=== PATIENT | female | born 1980 | race Caucasian/White ===

== ENCOUNTER 2020-11-30 02:16 | Inpatient (IN) | payer MEDICAID, SELFPAY ==
[2020-11-30] VITALS (7 sets, daily range): BP systolic 97–144; BP diastolic 39–85; PULSE 46–92; RESP 13–18; TEMP 35.9–37; O2SAT 95–98; BMI 23.3
--- NOTE | ~2020-11-30 | XR_ITS ---
EXAMINATION: BILATERAL FOREARMS 2 VIEWS EACH CLINICAL INFORMATION: Concern for foreign body. Injury. COMPARISON: None TECHNIQUE: AP and lateral views of each forearm are provided. FINDINGS: There is bilateral forearm soft tissue swelling. There is subcutaneous gas noted on the left. There are no radiopaque foreign bodies. There are no fractures or dislocations. There is no elbow joint effusion on either side. XR/XR forearm RT 2V IMPRESSION: Bilateral forearms soft tissue swelling with subcutaneous gas on the left indicative of penetrating injury. No radio opaque foreign bodies.
--- NOTE | ~2020-11-30 | XR_ITS ---
EXAMINATION: BILATERAL FOREARMS 2 VIEWS EACH CLINICAL INFORMATION: Concern for foreign body. Injury. COMPARISON: None TECHNIQUE: AP and lateral views of each forearm are provided. FINDINGS: There is bilateral forearm soft tissue swelling. There is subcutaneous gas noted on the left. There are no radiopaque foreign bodies. There are no fractures or dislocations. There is no elbow joint effusion on either side. XR/XR forearm LT 2V IMPRESSION: Bilateral forearms soft tissue swelling with subcutaneous gas on the left indicative of penetrating injury. No radio opaque foreign bodies.
--- NOTE | ~2020-11-30 | US_ITS ---
EXAMINATION: SOFT TISSUE NONVASCULAR ULTRASOUND CLINICAL INFORMATION: Cellulitis. COMPARISON: None TECHNIQUE: Imaging of the areas of concern in each forearm was performed with a high-frequency linear transducer. FINDINGS: There is extensive subcutaneous edema. There are no drainable fluid collections. There are no foreign bodies demonstrable. US/US extremity nonvascular IMPRESSION: Extensive edema. No drainable fluid collections. No foreign bodies demonstrable.
[2020-11-30 03:35] LABS: Basophils Percent Auto 0.4 % (0-2); Eosinophils Absolute Auto 0.1 X10*3/uL (0.0-0.4); Eosinophils Percent Auto 1.9 % (0-4); Hematocrit 27.2 % (37-47); Hemoglobin 8.9 g/dl (12.0-16.0); Imm Gran Abs Auto 0.01 X10*3/uL (0.00-0.03); Imm Gran Pct Auto 0.2 % (0.0-0.4); Lymphocytes Absolute Auto 1.2 X10*3/uL (1.2-4.9); Lymphocytes Percent Auto 26.2 % (20-40); Mean Corpuscular HGB Conc 32.7 g/dl (31.0-35.0); Mean Corpuscular Hemoglobin 28.4 pg (27.0-33.0); Mean Corpuscular Volume 86.9 fL (80-98); Mean Platelet Volume 9.4 fL (9.4-12.3); Monocytes Absolute Auto 0.3 X10*3/uL (0.1-1.2); Monocytes Percent Auto 5.3 % (2-11); Neutrophils Absolute Auto 3.1 X10*3/uL (2.0-8.3); Platelet Count 207 X10*3/uL (160-400); Red Blood Count 3.13 X10*6/uL (4.20-5.50); Red Cell Distribution Width 12.5 % (11.0-16.0); White Blood Count 4.7 X10*3/uL (4.8-10.8)
[2020-11-30 03:36] LABS: MANUAL DIFF FLAG NO
[2020-11-30 03:43] LABS: D Dimer 795 NG/ML
[2020-11-30 03:50] LABS: Lactic Acid 0.6 mmol/L (0.5-2.0)
[2020-11-30 04:01] LABS: Alanine Aminotransferase 12 U/L (0-31); Albumin Level 3.5 g/dL (3.5-5.0); Alkaline Phosphatase 80 U/L (39-117); Anion Gap 12 (12-20); Aspartate Amino Transferase 25 U/L (5-31); Bilirubin Total 0.2 mg/dL (0.0-1.0); Blood Urea Nitrogen 8 mg/dL (9-16); Calcium 8.2 mg/dL (8.4-10.2); Carbon Dioxide 27 mmol/L (22-29); Chloride 103 mmol/L (96-108); Creatinine Clr Calc Pharmacy 103.4; Estimated Glomerular Filt Rate > 60; Glucose Random 95 mg/dL (60-115); Potassium 3.9 mmol/L (3.3-5.1); Sodium 138 mmol/L (135-145); Total Protein 7.9 g/dL (6.5-8.0)
--- NOTE | 2020-11-30 04:18 | ED_ITS ---
HPI - General Adult General Chief complaint: Skin/Abscess/Foreign Body Stated complaint: bilateral arm pain Time Seen by Provider: 11/30/20 04:13 Source: patient and EMS Mode of arrival: EMS Limitations: no limitations History of Present Illness HPI narrative: 40 years old female with IV drug abuser history presented with bilateral forearm cellulitis, patient had recent use for IV drugs, patient declined any fever chills. Patient stated that the pain started 2 days ago, progressively getting worse, initially was draining pus but now was not draining, pain is not associated with any other symptoms, touching the arms causing severe pain, nothing relieves the pain. Related Data Allergies Allergy/AdvReac Type Severity Reaction Status Date / Time sulfamethoxazole Allergy Intermediate rash Unverified 07/11/20 17:44 [From BACTRIM] trimethoprim [From BACTRIM] Allergy Intermediate rash Unverified 07/11/20 17:44 acetaminophen [From VICODIN] Allergy Unknown UNKNOWN Unverified 07/11/20 17:44 hydrocodone [HYDROCODONE] Allergy Unknown UNKNOWN Unverified 07/11/20 17:44 Sulfa (Sulfonamide Allergy Unknown hives Verified 10/12/16 00:00 Antibiotics) Review of Systems Review of Systems: All other systems are reviewed and are negative Constitutional: Reports as per HPI and Reports no additional constitutional complaints Eyes: Reports as per HPI and Reports no additional eye complaints Reports system reviewed and no additional complaints, except as documented Cardiovascular: Reports as per HPI and Reports no additional cardiovascular complaints Respiratory: Reports as per HPI and Reports no additional respiratory complaints Gastrointestinal: Reports as per HPI and Reports no additional gastrointestinal complaints Genitourinary: Reports no additional female genitourinary complaints Musculoskeletal: Reports no additional musculoskeletal complaints Skin/Breast: Reports system reviewed and no additional complaints, except as docu Psychiatric: Reports no additional psychiatric complaints Endocrine: Reports no additional endocrine complaints Hematologic/Lymphatic: Reports no additional hematologic/lymphatic complaints Allergic/Immunologic: Reports no additional allergic/immunologic complaints Reports system reviewed and no additional complaints, except as documented and Reports Abnormal speech present [facility] Past Medical History Medical History Ectopic Surgical History H/O tubal ligation Social History Social History Alcohol intake: unknown Smoking Status: Current every day smoker Use of substances other than those prescribed or required for medical reasons: No Advance Directives: No Advance Directives Information Provided: No Physical Exam Vital Signs: Vital Signs: Last Vital Signs Temp 98.6 F 11/30/20 02:33 Pulse 87 11/30/20 05:42 Resp 16 11/30/20 05:42 BP 144/71 H 11/30/20 05:42 Pulse Ox 95 11/30/20 05:42 Body Mass Index 23.3 Vital signs have been reviewed as normal and appeared to be correct. Blood pressure normal. Heart rate normal. Respiration rate normal. Temperature normal. Oxygen saturation normal. Appearance: Alert. Oriented X3. No acute distress. Head: Normal external exam. Normocephalic. Atraumatic. No Mattson signs noted. No raccoon eyes noted Eyes: PERRLA. EOMI. Conjunctiva and sclera normal. Eyelids normal. ENT: TM's Normal. Pharynx normal. Uvula midline. Moist mucous membranes. No trismus noted. No drooling noted. No muffled voice noted. Neck: Normal inspection. Neck supple. FROM. No adenopathy. Thyroid Normal. No meningeal signs. No neck mass noted. CVS: Normal heart rate and rhythm. Heart sound normal. No murmurs noted. Pulses normal throughout. Respiratory: No respiratory distress. Painless inspiration. Breath sounds normal. No wheezes/rales/rhonchi noted. Chest nontender. No accessory muscle usage noted or decreased air movement noted. Abdomen: Soft and nontender. Bowel sounds normal in all 4 quadrants. No distention noted. No organomegaly noted. No visible injury noted. Back: No CVA tenderness. Full range of motion noted. Skin: Skin warm and dry. Normal skin color. Normal skin turgor. No rashes/lesions/lacerations noted. Extremities: Bilateral forearm redness, hotness, tenderness no elbows involvement, no obvious fluctuation. Neuro: Oriented X 3. No motor deficit. No sensory deficit. Reflexes normal. Course Course Course Narrative: Assessment and plan. 40 years old female with IV drug abuser presented with bilateral arm cellulitis, no obvious fluctuation or abscess. Patient did not meet criteria for sepsis. Patient will need IV antibiotic will admit the patient. Medical Decision Making Lab Data Lab results reviewed: Yes I reviewed the patient's lab results. Result diagrams: 11/30/20 03:28 11/30/20 03:28 Labs: Lab Results 11/30/20 11/30/20 11/30/20 Range/Units 03:28 03:28 03:28 WBC 4.7 L (4.8-10.8) X10*3/uL RBC 3.13 L (4.20-5.50) X10*6/uL Hgb 8.9 L (12.0-16.0) g/dl Hct 27.2 L (37-47) % MCV 86.9 (80-98) fL MCH 28.4 (27.0-33.0) pg MCHC 32.7 (31.0-35.0) g/dl RDW 12.5 (11.0-16.0) % Plt Count 207 (160-400) X10*3/uL MPV 9.4 (9.4-12.3) fL Immature Gran % (Auto) 0.2 (0.0-0.4) % Neut % (Auto) 66.0 (45-73) % Lymph % (Auto) 26.2 (20-40) % [place] % (Auto) 5.3 (2-11) % Eos % (Auto) 1.9 (0-4) % Baso % (Auto) 0.4 (0-2) % Lymph # (Auto) 1.2 (1.2-4.9) X10*3/uL [place] # (Auto) 0.3 (0.1-1.2) X10*3/uL Eos # (Auto) 0.1 (0.0-0.4) X10*3/uL Baso # (Auto) 0.0 (0.0-0.2) X10*3/uL Abs Immat Gran (auto) 0.01 (0.00-0.03) X10*3/uL Absolute Neuts (auto) 3.1 (2.0-8.3) X10*3/uL Absolute Nucleated RBC 0.000 (0.0-0.012) X10*3/uL Nucleated RBC % (auto) 0.0 (0.0-0.2) /100WBC D-Dimer NG/ML Sodium 138 (135-145) mmol/L Potassium 3.9 (3.3-5.1) mmol/L Chloride 103 (96-108) mmol/L Carbon Dioxide 27 (22-29) mmol/L Anion Gap 12 (12-20) BUN 8 L (9-16) mg/dL Creatinine 0.65 (0.5-1.4) mg/dL Estim Creat Clear Calc 103.4 Estimated GFR > 60 Random Glucose 95 (60-115) mg/dL Lactic Acid 0.6 (0.5-2.0) mmol/L Calcium 8.2 L (8.4-10.2) mg/dL Total Bilirubin 0.2 (0.0-1.0) mg/dL AST 25 (5-31) U/L ALT 12 (0-31) U/L Alkaline Phosphatase 80 (39-117) U/L Total Protein 7.9 (6.5-8.0) g/dL Albumin 3.5 (3.5-5.0) g/dL Beta HCG, Quant < 2 mIU/mL 11/30/20 Range/Units 03:28 WBC (4.8-10.8) X10*3/uL RBC (4.20-5.50) X10*6/uL Hgb (12.0-16.0) g/dl Hct (37-47) % MCV (80-98) fL MCH (27.0-33.0) pg MCHC (31.0-35.0) g/dl RDW (11.0-16.0) % Plt Count (160-400) X10*3/uL MPV (9.4-12.3) fL Immature Gran % (Auto) (0.0-0.4) % Neut % (Auto) (45-73) % Lymph % (Auto) (20-40) % [place] % (Auto) (2-11) % Eos % (Auto) (0-4) % Baso % (Auto) (0-2) % Lymph # (Auto) (1.2-4.9) X10*3/uL [place] # (Auto) (0.1-1.2) X10*3/uL Eos # (Auto) (0.0-0.4) X10*3/uL Baso # (Auto) (0.0-0.2) X10*3/uL Abs Immat Gran (auto) (0.00-0.03) X10*3/uL Absolute Neuts (auto) (2.0-8.3) X10*3/uL Absolute Nucleated RBC (0.0-0.012) X10*3/uL Nucleated RBC % (auto) (0.0-0.2) /100WBC D-Dimer 795 NG/ML Sodium (135-145) mmol/L Potassium (3.3-5.1) mmol/L Chloride (96-108) mmol/L Carbon Dioxide (22-29) mmol/L Anion Gap (12-20) BUN (9-16) mg/dL Creatinine (0.5-1.4) mg/dL Estim Creat Clear Calc Estimated GFR Random Glucose (60-115) mg/dL Lactic Acid (0.5-2.0) mmol/L Calcium (8.4-10.2) mg/dL Total Bilirubin (0.0-1.0) mg/dL AST (5-31) U/L ALT (0-31) U/L Alkaline Phosphatase (39-117) U/L Total Protein (6.5-8.0) g/dL Albumin (3.5-5.0) g/dL Beta HCG, Quant mIU/mL Imaging Data Extremities ultrasound: Radiologist's impression: Extensive edema. No drainable fluid collections. No foreign bodies demonstrable. Discharge Plan Discharge Clinical Impression: Cellulitis Qualifiers: Site of cellulitis of extremity: upper extremity Laterality: unspecified laterality Patient Disposition: Admitted As Inpatient
--- NOTE | 2020-11-30 04:22 | PM.IMHP ---
History of Present Illness Date of Service: 11/30/20 Chief Complaint: Bilateral forearm pain redness and swelling 40-year-old female a past medical history of IV drug abuse presented to the hospital with a chief complaint of bilateral forearm pain redness and swelling going on the past few days. Mentioned that her swelling has been gradually worsening and also has increased pain. And presented the ER further evaluation. Mentions that she used IV heroin on a regular basis. Denies any chest pain palpitations lightheadedness or dizziness. Denies any shortness of breath cough. Denies any headaches numbness tingling. Review all other systems is negative except mentioned above ER course: ER team patient noted to have bilateral forearm cellulitis; no evidence; range of motion intact elbows and wrists bilaterally. Given IV antibiotics and admitted to the hospital further management PMFSH Medical History Ectopic Surgical History H/O tubal ligation Social History Household Members: None Housing: Homeless Do you presently have visiting nurse or other home services: No Unable to assess alcohol history related to: Refusing to respond Alcohol intake: unknown Smoking Status: Current every day smoker Tobacco Type: Cigarette Smoked in Last 30 Days: Yes Patient Interested in Nicotine Replacement: No Patient Given Instructions on How to Stop Smoking: No Use of substances other than those prescribed or required for medical reasons: Yes Substance Use Type: Heroin Substance Use Frequency: Daily Last Used Substance: Just Prior to Admission Currently Displaying Signs/Symptoms of Drug Intoxication Withdrawal: Yes (COWS score 1) Advance Directives: No Advance Directives Information Provided: No Do you have thoughts of harming others: None Do you have a plan to hurt others: No Plan Recently lost weight without trying: Unsure service: No Current occupational status: unemployed Meds Allergies Allergy/AdvReac Type Severity Reaction Status Date / Time sulfamethoxazole Allergy Intermediate rash Unverified 07/11/20 17:44 [From BACTRIM] trimethoprim [From BACTRIM] Allergy Intermediate rash Unverified 07/11/20 17:44 acetaminophen [From VICODIN] Allergy Unknown UNKNOWN Unverified 07/11/20 17:44 hydrocodone [HYDROCODONE] Allergy Unknown UNKNOWN Unverified 07/11/20 17:44 Sulfa (Sulfonamide Allergy Unknown hives Verified 10/12/16 00:00 Antibiotics) Physical Exam Vital Signs and Narrative: Vital Signs: Last Vital Signs Temp 98.6 F 11/30/20 02:33 Pulse 92 11/30/20 02:33 Resp 18 11/30/20 02:33 BP 144/71 H 11/30/20 02:33 Pulse Ox 96 11/30/20 02:33 Body Mass Index 23.3 Gen: Appears be in no acute distress HEENT: NCAT, Moist mucosa. Pulmonary: Vesicular breath sounds, fair air entry CVS: Normal S1-S2 Abdomen: BS+, Soft, Nontender Extremities: Warm well perfused; bilateral forearm swollen, tender and hyperemic-> the posterior side mostly; also noted excoriations/ulcers; no discharge. No fluctuance but noted few areas of intubations. Range of motion intact at elbow bilaterally. Neuro: Alert and awake. Results Labs CBC and Chem 7: 12/01/20 06:46 12/01/20 06:46 Labs: Laboratory Results - last 24 hr 11/30/20 11/30/20 11/30/20 03:28 03:28 03:28 MCV 86.9 MCH 28.4 MCHC 32.7 RDW 12.5 Plt Count 207 MPV 9.4 Immature Gran % (Auto) 0.2 Neut % (Auto) 66.0 Lymph % (Auto) 26.2 [place] % (Auto) 5.3 Eos % (Auto) 1.9 Baso % (Auto) 0.4 Lymph # (Auto) 1.2 [place] # (Auto) 0.3 Eos # (Auto) 0.1 Baso # (Auto) 0.0 Abs Immat Gran (auto) 0.01 Absolute Neuts (auto) 3.1 Absolute Nucleated RBC 0.000 Nucleated RBC % (auto) 0.0 D-Dimer Anion Gap 12 Estim Creat Clear Calc 103.4 Estimated GFR > 60 Random Glucose 95 Lactic Acid 0.6 Calcium 8.2 L Total Bilirubin 0.2 AST 25 ALT 12 Alkaline Phosphatase 80 Total Protein 7.9 Albumin 3.5 11/30/20 03:28 MCV MCH MCHC RDW Plt Count MPV Immature Gran % (Auto) Neut % (Auto) Lymph % (Auto) [place] % (Auto) Eos % (Auto) Baso % (Auto) Lymph # (Auto) [place] # (Auto) Eos # (Auto) Baso # (Auto) Abs Immat Gran (auto) Absolute Neuts (auto) Absolute Nucleated RBC Nucleated RBC % (auto) D-Dimer 795 Anion Gap Estim Creat Clear Calc Estimated GFR Random Glucose Lactic Acid Calcium Total Bilirubin AST ALT Alkaline Phosphatase Total Protein Albumin Assessment and Plan (1) Cellulitis: Qualifiers: Laterality: unspecified laterality Site of cellulitis of extremity: upper extremity Problem details: Ongoing Bilateral forearm, edema, erythema and induration. U/S reviewed. Status: Acute 40-year-old female with a past history IV drug abuse presented to the hospital with a chief complaint of bilateral forearm cellulitis. Bilateral forearm cellulitis/induration/ulcers: Continue IV vanc and Zosyn. Blood cultures have been sent. obtain echocardiogram to rule out endocarditis. Will also obtain CT scan of the bilateral forearms Consult general surgery and a. Opiate dependence: Supportive care. Monitor for withdrawal symptoms. P.r.n.. Clonidine p.r.n.. DVT prophylaxis: SCD Regular diet Full code
[2020-11-30] MEDS: 0.9 % Sodium Chloride 1,000 ML 100 ML IVCONT ×2 (04:36→14:20)
[2020-11-30] MEDS: Piperacillin Sodium/Tazobactam 3.375 GM in 0.9 % Sodium Chloride 50 ML IV ×4 (04:38→23:04)
--- NOTE | 2020-11-30 04:52 | PC.NURSE ---
Pt sleeping and resting, medicated for per emar.
--- NOTE | 2020-11-30 05:44 | PC.NURSE ---
pt medicated per Mar, pt taken to ultra sound. pt has abscess to right and left arm due to iv use. Area is red and warm. pt has positives cms.
--- NOTE | 2020-11-30 05:47 | PC.NURSE ---
pt is archie to move all of her digits and upper arms.
--- NOTE | 2020-11-30 05:48 | PC.NURSE ---
Antibioc delayed due to one IV line and pt taken to ultra sound.
[2020-11-30] MEDS: vancomycin HCL 1,000 MG in 0.9 % Sodium Chloride 250 ML 270 MG IV ×2 (06:00→19:30)
[2020-11-30 06:12] LABS: HCG Quantitative < 2 mIU/mL
[2020-11-30 07:06] LABS: MANUAL DIFF FLAG NO
--- NOTE | 2020-11-30 07:06 | PC.NURSE ---
attempting to collect urine several time. pt stating she does not have to void. pt sleeping and but able to answer questions
[2020-11-30 07:19] LABS: Basophils Percent Auto 0.5 % (0-2); Eosinophils Absolute Auto 0.1 X10*3/uL (0.0-0.4); Eosinophils Percent Auto 2.4 % (0-4); Hemoglobin 8.2 g/dl (12.0-16.0); Imm Gran Abs Auto 0.01 X10*3/uL (0.00-0.03); Imm Gran Pct Auto 0.2 % (0.0-0.4); Lymphocytes Absolute Auto 1.4 X10*3/uL (1.2-4.9); Lymphocytes Percent Auto 33.6 % (20-40); Mean Corpuscular HGB Conc 32.8 g/dl (31.0-35.0); Mean Corpuscular Hemoglobin 28.4 pg (27.0-33.0); Mean Corpuscular Volume 86.5 fL (80-98); Mean Platelet Volume 9.5 fL (9.4-12.3); Monocytes Absolute Auto 0.2 X10*3/uL (0.1-1.2); Monocytes Percent Auto 5.8 % (2-11); Neutrophils Absolute Auto 2.4 X10*3/uL (2.0-8.3); Neutrophils Percent Auto 57.5 % (45-73); Platelet Count 198 X10*3/uL (160-400); Red Blood Count 2.89 X10*6/uL (4.20-5.50); Red Cell Distribution Width 12.5 % (11.0-16.0); White Blood Count 4.2 X10*3/uL (4.8-10.8)
[2020-11-30 07:33] LABS: Anion Gap 11 (12-20); Blood Urea Nitrogen 8 mg/dL (9-16); Carbon Dioxide 25 mmol/L (22-29); Chloride 107 mmol/L (96-108); Creatinine Clr Calc Pharmacy 106.8; Estimated Glomerular Filt Rate > 60; Glucose Random 79 mg/dL (60-115); Sodium 139 mmol/L (135-145)
[2020-11-30 08:03] LABS: COVID-19 Test Negative (Negative); IDNOW Serial# 9DD0AD1C
--- NOTE | 2020-11-30 09:17 | P.CONGS_ITS ---
History of Present Illness Consult details Consult date: 11/30/20 <TIMI Chawla - Last Filed: 11/30/20 10:44> Reason for consult: other (Bilateral Forearm Cellulitis) <TIMI Chawla - Last Filed: 11/30/20 10:44> Requesting physician: Chris Quezada <TIMI Chawla - Last Filed: 11/30/20 10:44> Narrative: 40-year-old female a past medical history of IV drug abuse presented to the hospital with a chief complaint of bilateral forearm pain redness and swelling going on the past few days, maybe a week. She reports that her swelling has been gradually worsening and also has increased pain and redeness. She reports that the swelling and edema began after using IV Heroin which she uses regularly. She denies any falls or other exacerbating injury to the arms. Denies any chest pain palpitations lightheadedness or dizziness. Denies any shortness of breath cough. Denies any headaches numbness tingling. She denies any other complaints. In the ED she was given IV antibiotics and admitted to the hospital further management. Surgery was consulted to assess for any emergent surgical intervention. <TIMI Chawla - Last Filed: 11/30/20 10:44> Review of Systems Review of Systems: Yes all other systems are reviewed and are negative <TIMI Chawla - Last Filed: 11/30/20 10:44> Integumentary/Breasts: Skin/Breast: Reports erythema (Bilateral forearms), Reports skin pain (Bilateral forearms) and Reports skin swelling (Bilateral forearms) <TIMI Chawla - Last Filed: 11/30/20 10:44> [facility] Past Medical History Medical History: Medical History Ectopic <TIMI Chawla Last Filed: 11/30/20 10:44> Surgical History Surgical History: Surgical History H/O tubal ligation <TIMI Chawla Last Filed: 11/30/20 10:44> Social History Social History: Social History Alcohol intake: unknown Smoking Status: Current every day smoker Use of substances other than those prescribed or required for medical reasons: No Advance Directives: No Advance Directives Information Provided: No <TIMI Chawla Last Filed: 11/30/20 10:44> Meds Allergies/Adverse reactions: Allergies Allergy/AdvReac Type Severity Reaction Status Date / Time sulfamethoxazole Allergy Intermediate rash Unverified 07/11/20 17:44 [From BACTRIM] trimethoprim [From BACTRIM] Allergy Intermediate rash Unverified 07/11/20 17:44 acetaminophen [From VICODIN] Allergy Unknown UNKNOWN Unverified 07/11/20 17:44 hydrocodone [HYDROCODONE] Allergy Unknown UNKNOWN Unverified 07/11/20 17:44 Sulfa (Sulfonamide Allergy Unknown hives Verified 10/12/16 00:00 Antibiotics) <TIMI Chawla - Last Filed: 11/30/20 10:44> Physical Exam Vital Signs: Vital Signs: Last Vital Signs Temp 98.6 F 11/30/20 02:33 Pulse 58 11/30/20 08:15 Resp 16 11/30/20 08:15 BP 97/39 L 11/30/20 08:15 Pulse Ox 97 11/30/20 08:15 Body Mass Index 23.3 <TIMI Chawla - Last Filed: 11/30/20 10:44> Const: General: no acute distress and awake (but appears sleepy) <TIMI Chawla - Last Filed: 11/30/20 10:44> Chest: Chest palpation & inspection: normal inspection of the chest <TIMI Chawla - Last Filed: 11/30/20 10:44> Resp: Effort & Inspection: normal respiratory effort <TIMI Chawla - Last Filed: 11/30/20 10:44> Cardio: Jugular venous distension: no JVD <TIMI Chawla - Last Filed: 11/30/20 10:44> Skin: General skin exam: erythema (Bilateral Forearms) <TIMI Chawla Last Filed: 11/30/20 10:44> Lesions: no lesions <TIMI Chawla Last Filed: 11/30/20 10:44> Wounds: no wounds <TIMI Chawla - Last Filed: 11/30/20 10:44> Extrem: General: Yes no calf tenderness <TIMI Chawla Last Filed: 11/30/20 10:44> Right upper extremity: edema and elbow/forearm (multiple 1-2 cm excoriations of the dorsal forearms, no drainage) Details: tenderness, swelling and warmth <TIMI Chawla Last Filed: 11/30/20 10:44> Left upper extremity: edema and elbow/forearm (multiple 1-2 cm excoriations of the dorsal forearms, no drainage) Details: tenderness, swelling and warmth <TIMI Chawla Last Filed: 11/30/20 10:44> Results Labs Result diagrams: : 11/30/20 06:54 11/30/20 06:54 <TIMI Chawla Last Filed: 11/30/20 10:44> Labs: Abnormal lab results 11/30/20 11/30/20 11/30/20 Range/Units 03:28 03:28 06:54 WBC 4.7 L 4.2 L (4.8-10.8) X10*3/uL RBC 3.13 L 2.89 L (4.20-5.50) X10*6/uL Hgb 8.9 L 8.2 L (12.0-16.0) g/dl Hct 27.2 L 25.0 L (37-47) % Anion Gap (12-20) BUN 8 L (9-16) mg/dL Calcium 8.2 L (8.4-10.2) mg/dL 11/30/20 Range/Units 06:54 WBC (4.8-10.8) X10*3/uL RBC (4.20-5.50) X10*6/uL Hgb (12.0-16.0) g/dl Hct (37-47) % Anion Gap 11 L (12-20) BUN 8 L (9-16) mg/dL Calcium 8.0 L (8.4-10.2) mg/dL Short CBC 11/30/20 11/30/20 Range/Units 03:28 06:54 WBC 4.7 L 4.2 L (4.8-10.8) X10*3/uL Hgb 8.9 L 8.2 L (12.0-16.0) g/dl Hct 27.2 L 25.0 L (37-47) % Plt Count 207 198 (160-400) X10*3/uL BMP 11/30/20 11/30/20 03:28 06:54 Sodium 138 139 Potassium 3.9 4.0 Chloride 103 107 Carbon Dioxide 27 25 BUN 8 L 8 L Creatinine 0.65 0.63 Calcium 8.2 L 8.0 L Liver Function 11/30/20 Range/Units 03:28 Total Bilirubin 0.2 (0.0-1.0) mg/dL AST 25 (5-31) U/L ALT 12 (0-31) U/L Alkaline Phosphatase 80 (39-117) U/L Albumin 3.5 (3.5-5.0) g/dL All other labs normal. <TIMI Chawla - Last Filed: 11/30/20 10:44> Assessment and Plan (1) Cellulitis: Qualifiers: Laterality: unspecified laterality Site of cellulitis of extremity: upper extremity <TIMI Chawla - Last Filed: 11/30/20 10:44> Problem details: ~1 week of worsening cellulitis and excoriations of Bilateral forearms following IV Heroin use. She states that the arms are still sore and mildly tender to the touch but this has been improving since ABX were started. <TIMI Chawla - Last Filed: 11/30/20 10:44> Status: Acute <TIMI Chawla - Last Filed: 11/30/20 10:44> Bilateral Forearm Cellulitis- imaging show no discernable fluid pocket or abscess Continue IV ABX Pain mgmt Arm elevation and silver alginate to the excoriations and wrap with dry gauze No surgical interventions required at this time. Will follow with medicine during patients hospital course <TIMI Chawla Last Filed: 11/30/20 10:44> . General Surgery Attending - Dorian Beckman M.D. Patient was evaluated and examined at the bedside with Mr. Wild Steiner PA-C. I confirm above findings and plan as documented. Bilateral forearm edema, some redness, and open needle insertion wounds about 1 cm sized. Appears to be subacute. No discernible fluctulence or abscess that is not already draining through open wounds. I would recommend continued IV antibiotics, local wound care with Silver Alginate and gauze, and follow exam for the next 24 hours. Unnecessary surgical debridement would result in extensive SQ open wounds with scarring, which should be avoided if possible. <Nguyen Beckman MD - Last Filed: 11/30/20 10:48>
[2020-11-30] MEDS: cloNIDine HCL 0.1 MG TABLET PO ×2 (11:45→23:03)
[2020-11-30] MEDS: Ibuprofen 400 MG TABLET PO (11:48)
--- NOTE | 2020-11-30 15:31 | MHC.CM.PN ---
INCOMPLETE CASE MANAGEMENT ASSESSMENT Ptient is LETHARGIC, SLEEPY ,NOT ANSWERING ANY QUESTIONS , MUMBLING. INFORMATION TAKEN FORM ELECTRONIC MEDICAL RECORD AND ER NOTES. PATIENT CAME TO THE ER VIA [facility] WITH COMPLAINTS OF BILATERAL FOREARM SWELLING WORSENING , WITH 8/10 PAIN, ADMITTED TO OPIOD ABUSE IV HEROIN JUST PRIOR TO ADMISSION, EVERYDAY SMOKER REFUSES TO ANSWER ETOH CONSUMPTION, COVID TEST NEGATIVE ON ADMISSION, PER JIMENEZ OF CARE DOCUMENTED BY PHYSICIAN ADMIT INPATIENT IMAGING STUDIES OF FOREARMS, MONITORING FOR OPIOD WITHDRAWAL , CLONDIDINE PRN FR ANXIETY AND RESTLESSNESS, IV ZOFRAN FOR NAUSEA/EMESIS PRN IV ABX X2 IV ANALGESICS, IV FLUIDS, CT SCAN OF BILATERAL FOREARMS, ECHO TO RULE OUT ENDOCARDITIS, SURGICAL CONSULT WHICH RECOMMENDED ARMS TO BE ELEVATED, APPLICATION OF SILVER ALGINATE WRAP WITH GAUZE, MONITOR FOR WITHDRAWAL MONITOR ALL LABS discharge plan to be further determined when patient is more awake and answering questions iniated referral to the cares team substance abuse
[2020-11-30] MEDS: 0.9 % Sodium Chloride Flush 3 ML SYRINGE IVFLUSH (23:54)
[2020-12-01] VITALS (7 sets, daily range): BP systolic 126–169; BP diastolic 62–67; PULSE 50–62; RESP 15–18; TEMP 36.4–37.4; O2SAT 96–98
[2020-12-01] MEDS: 0.9 % Sodium Chloride 1,000 ML 100 ML IVCONT (01:58)
[2020-12-01] MEDS: Piperacillin Sodium/Tazobactam 3.375 GM in 0.9 % Sodium Chloride 50 ML IV ×3 (04:02→16:01)
[2020-12-01] MEDS: Ketorolac Tromethamine 15 MG/ML VIAL IV ×2 (06:19→16:03)
[2020-12-01] MEDS: vancomycin HCL 1,000 MG in 0.9 % Sodium Chloride 250 ML 270 MG IV (06:19)
[2020-12-01 07:06] LABS: MANUAL DIFF FLAG NO
[2020-12-01 07:18] LABS: Basophils Percent Auto 0.4 % (0-2); Eosinophils Absolute Auto 0.1 X10*3/uL (0.0-0.4); Eosinophils Percent Auto 2.2 % (0-4); Hematocrit 24.8 % (37-47); Imm Gran Abs Auto 0.01 X10*3/uL (0.00-0.03); Imm Gran Pct Auto 0.2 % (0.0-0.4); Lymphocytes Absolute Auto 1.5 X10*3/uL (1.2-4.9); Lymphocytes Percent Auto 32.6 % (20-40); Mean Corpuscular HGB Conc 32.3 g/dl (31.0-35.0); Mean Corpuscular Volume 86.7 fL (80-98); Mean Platelet Volume 10.2 fL (9.4-12.3); Monocytes Absolute Auto 0.4 X10*3/uL (0.1-1.2); Monocytes Percent Auto 8.9 % (2-11); Neutrophils Absolute Auto 2.5 X10*3/uL (2.0-8.3); Neutrophils Percent Auto 55.7 % (45-73); Platelet Count 186 X10*3/uL (160-400); Red Blood Count 2.86 X10*6/uL (4.20-5.50); Red Cell Distribution Width 12.6 % (11.0-16.0); White Blood Count 4.5 X10*3/uL (4.8-10.8)
[2020-12-01 07:45] LABS: Anion Gap 13 (12-20); Blood Urea Nitrogen 13 mg/dL (9-16); Calcium 7.6 mg/dL (8.4-10.2); Carbon Dioxide 22 mmol/L (22-29); Chloride 109 mmol/L (96-108); Creatinine Clr Calc Pharmacy 57.5; Estimated Glomerular Filt Rate 51; Glucose Fasting 107 mg/dL (60-99); Sodium 140 mmol/L (135-145)
--- NOTE | 2020-12-01 09:20 | HO.PM.IMPN ---
Subjective Subjective Date of Service: 12/01/20 Interval History: arm pain Cardiovascular Cardiovascular: Reports no additional cardiovascular complaints Respiratory Respiratory: Reports no additional respiratory complaints Physical Exam Vital Signs: Vital Signs: Last Vital Signs Temp 97.6 F 12/01/20 07:49 Pulse 59 12/01/20 07:49 Resp 18 12/01/20 07:49 BP 126/64 12/01/20 07:49 Pulse Ox 96 12/01/20 07:49 Body Mass Index 23.3 General: AO X 3, no acute distress Resp: CTA bilateral CVS: S1,S2,RRR GI: soft, non tender, non distended Neuro: motor grossly intact Psych: appropriate affect skin: bilateral forearm infected lesions at injection sites. decreased swelling in upper extremities Objective Data Current Medications Generic Name Dose Route Start Last Admin Trade Name Freq PRN Reason Stop Dose Admin Clonidine HCl 0.1 mg 11/30/20 04:16 11/30/20 23:03 Clonidine Hcl 0.1 Mg Tablet PO 0.1 mg BID PRN Administration anxiety/restlessness Protocol Vancomycin HCl 1,000 mg/ 270 mls @ 270 mls/hr 11/30/20 18:00 12/01/20 07:20 Sodium Chloride IV Infused Q12H LUCÍA Infusion Piperacillin Sod/Tazobactam 50 mls @ 100 mls/hr 11/30/20 10:00 12/01/20 04:57 Sod 3.375 gm/ Sodium Chloride IV Infused Q6H LUCÍA Infusion Ketorolac Tromethamine 15 mg 12/01/20 04:11 12/01/20 06:19 Ketorolac Tromethamine 15 Mg/Ml Vial IV 15 mg Q6H PRN Administration Breakthrough Pain Ondansetron HCl 4 mg 11/30/20 04:16 Ondansetron Hcl 4 Mg/2 Ml Vial IVPUSH Q8H PRN Nausea and Vomiting Pharmacy Consult 1 each 11/30/20 04:16 Consult Rx Vancomycin Dosing MISCELLANE DAILY PRN Consult order Sodium Chloride 3 ml 11/30/20 08:00 12/01/20 07:19 0.9 % Sodium Chloride Flush 3 Ml Syringe IVFLUSH Not Given QSHIFT [facility] Labs CBC & Chem 7: 12/01/20 06:46 12/01/20 06:46 Microbiology Microbiology Results: Microbiology 11/30/20 03:27 Blood - Venous Blood Culture - Preliminary No growth after 24 hours. 11/30/20 03:28 Blood - Venous Blood Culture - Preliminary No growth after 24 hours. Assessment and Plan (1) Cellulitis: Status: Acute Assessment and Plan: 40-year-old female with a past history IV drug abuse presented to the hospital with a chief complaint of bilateral forearm cellulitis. Bilateral forearm cellulitis/induration/ulcers: Continue IV vanc and Zosyn. Blood cultures no growth first 24hrs follow up CT to rule out deep infection gen surgery appreciated - no surgical intervention at this time Opiate dependence Clonidine p.r.n. can start suboxone once COWS>=8
--- NOTE | 2020-12-01 09:58 | PM.PNGS ---
Subjective Subjective Date of Service: 12/01/20 <TIMI Chawla - Last Filed: 12/01/20 10:03> 12/01/20 <Nguyen Beckman MD - Last Filed: 12/01/20 16:40> Interval history: She states that she is continuing to have moderate Bilateral arm pain. This is unchanged since yesterday. NO new complaints of fevers, chills, N/V. VSS <TIMI Chawla - Last Filed: 12/01/20 10:03> Physical Exam Vital Signs: Vital Signs: Last Vital Signs Temp 97.6 F 12/01/20 07:49 Pulse 59 12/01/20 07:49 Resp 18 12/01/20 07:49 BP 126/64 12/01/20 07:49 Pulse Ox 96 12/01/20 07:49 Body Mass Index 23.3 <TIMI Chawla - Last Filed: 12/01/20 10:03> Const: General: no acute distress <TIMI Chawla - Last Filed: 12/01/20 10:03> Extrem: Other: Multiple Bilateral dorsal forearm excoriations. No drainage. Skin around excoriations mildly erythematous and indurated. <TIMI Chawla - Last Filed: 12/01/20 10:03> Progress Note: A&P Assessment and plan (1) Cellulitis: Problem details: Ongoing Bilateral forearm, edema, erythema and induration. U/S reviewed. <TIMI Chawla - Last Filed: 12/01/20 10:03> Status: Acute <TIMI Chawla - Last Filed: 12/01/20 10:03> Assessment and Plan: Continue IV ABX pain mgmt arm elevation No surgical intervention required at this time. Will continue to follow. <TIMI Chawla - Last Filed: 12/01/20 10:03> . General Surgery Attending - Dorian Beckman M.D. Patient was evaluated and examined at the bedside with Mr. Wild Steiner PA-C. I confirm above findings and plan as documented. No acute surgical need today. <Nguyen Beckman MD - Last Filed: 12/01/20 16:40> Fall Risk Details Current Medications: Current Medications Generic Name Dose Route Start Last Admin Trade Name Freq PRN Reason Stop Dose Admin Clonidine HCl 0.1 mg 11/30/20 04:16 11/30/20 23:03 Clonidine Hcl 0.1 Mg Tablet PO 0.1 mg BID PRN Administration anxiety/restlessness Protocol Vancomycin HCl 1,000 mg/ 270 mls @ 270 mls/hr 11/30/20 18:00 12/01/20 07:20 Sodium Chloride IV Infused Q12H LUCÍA Infusion Piperacillin Sod/Tazobactam 50 mls @ 100 mls/hr 11/30/20 10:00 12/01/20 09:45 Sod 3.375 gm/ Sodium Chloride IV 100 mls/hr Q6H LUCÍA Administration Ketorolac Tromethamine 15 mg 12/01/20 04:11 12/01/20 06:19 Ketorolac Tromethamine 15 Mg/Ml Vial IV 15 mg Q6H PRN Administration Breakthrough Pain Ondansetron HCl 4 mg 11/30/20 04:16 Ondansetron Hcl 4 Mg/2 Ml Vial IVPUSH Q8H PRN Nausea and Vomiting Pharmacy Consult 1 each 11/30/20 04:16 Consult Rx Vancomycin Dosing MISCELLANE DAILY PRN Consult order Sodium Chloride 3 ml 11/30/20 08:00 12/01/20 07:19 0.9 % Sodium Chloride Flush 3 Ml Syringe IVFLUSH Not Given QSHIFT LUC[facility]A <TIMI Chawla - Last Filed: 12/01/20 10:03> Time Spent With Patient Time: Total time spent is greater than 50% in coordination of care (as documented) at patient's floor/unit and/or counseling patient: <TIMI Chawla - Last Filed: 12/01/20 10:03> Time with patient: less than 15 minutes <Nguyen Beckman MD - Last Filed: 12/01/20 16:40>
--- NOTE | 2020-12-01 11:42 | MHC.CM.PN ---
nurse foster care social worker note electronic medical record reviewed along with case discussed with staff nurse met with patient , she 2as alert and orientated , had good eye contact , she is currently homeless and often times stays with different people when she can , she is un-employed, , she is independent in her ads and mobility, she has no pcp, no health care proxy, and is not interested at this time to complete one. she reports that she is having pain and going through withdrawl, she verbalized interest in stRTING ON METHADONE, AND OPEN TO CARES TEAM WORKER COMING TO SEE HER. DISCHARGE PLAN INIATED REFRRAL TO THE CARES TEAM FOR MENTAL HEALTH COUNSELING, AND POLY SUBSTANCE ABUSE COUNSELING MANAGER [place] TO [place] [facility] FOR ANY CHANGES IN THE DISCHARGE PLAN PATIENT WILL NEED TO PICK AND CHOOSE A PCP
--- NOTE | 2020-12-01 12:24 | MHC.CARE ---
CARE Team consulted with patient, she is provided with resources for her to follow up in the community. She declined needing any help with getting the help in the community. She is cleared from the CARE Team.
[2020-12-01] MEDS: Buprenorphine/Naloxone 4/1 mg FILM 1 FILM SUBLINGUAL (14:26)
[2020-12-01] MEDS: 0.9 % Sodium Chloride Flush 3 ML SYRINGE IVFLUSH (16:01)
--- NOTE | 2020-12-01 16:37 | PM.EVENT ---
Event Note Date of Service: 12/01/20 Event Note: discharge diagnosis: cellulitis, opiooid dependence with withdrawl discharge summary: patient was admitted for cellultis due to IV drug use. she was given broad spectrum antibiotics. course was complicated by heroin withdrawl, patient was offered suboxone, but refused, decided to leave against medical advice. patient is aware of risks including .
--- NOTE | 2020-12-01 18:27 | PC.NURSE ---
1620- Pt appears to be withdrawing more. She has chills, restlessness, runny nose, and diarrhea. COWs assessment score was 17. Dr. Pepe boone andrews. To order additional dose of suboxone. 1630- Pt stating she wants/needs to leave. Friend is already on her way to pick her up. Pt aware of risks of leaving. Pt informed MD to order additional dose of suboxone, pt stated, can't take it, it makes her sick . Dr. Cantu made aware. Pt signed AMA form with two nurse witness, IV removed no issues. Pt ambulated off unit independently.
== END 2020-12-01 16:40 | disposition left against medical advice (07) | DRG 383 ==
LOC: HO.ED 04:22 → HO.EDOVER 05:03 → HO.S3 12:39
PROVIDERS: Admitting Provider Hospitalist; Emergency Provider Emergency Medicine; Visit Provider Internal Medicine
DX: L03.113 Cellulitis of right upper limb (principal); F11.23 Opioid dependence with withdrawal; L03.114 Cellulitis of left upper limb; Z20.822 Contact with and (suspected) exposure to COVID-19; Z88.2 Allergy status to sulfonamides; Z88.5 Allergy status to narcotic agent
CPT/HCPCS: 36415; 73090; 76882; 80048; 80053; 83605; 84702; 85025; 85379; 87040; 87635; 96365; 96367; 99218; 99284; 99285; J0573; J1885; J2543; J3370

== ENCOUNTER 2024-02-17 15:06 | Emergency (ER) | payer MEDICAID, SELFPAY ==
[2024-02-17] VITALS (7 sets, daily range): BP systolic 114–133; BP diastolic 69–83; PULSE 64–75; RESP 16–18; TEMP 36.3–36.6; O2SAT 98–100; BMI 17.5
--- NOTE | ~2024-02-17 | XR_ITS ---
EXAMINATION: 1. Right forearm. 2. Right wrist. CLINICAL INFORMATION: wound/deformity to arm, hx IVDU COMPARISON: Right forearm November 30, 2020 TECHNIQUE: 1. Right forearm. 2 views 2. Right wrist. 2 views FINDINGS: 1. Right forearm. There is a large soft tissue defect at the dorsum of the mid distal forearm measures about 10 cm in length. Defect extends down to the bone appears exposed bone of the radius soft tissue defect. There is destruction of the radius discontinuity, L bowel 1.7 cm. Ends of the radius at this defect are normal with bone destruction and periosteal reaction highly suggestive for osteomyelitis The ulna is intact. There is disruption of the radial ulnar joint. The ulna is subluxed dorsally relative to the radius with reticular surface of the radius 1 cm distal to the radius. Radial deviation of the wrist. 2. Right wrist. No fracture. No dislocation. No bone destruction. XR/XR forearm RT 2V IMPRESSION: 1. Right forearm. Large soft tissue defect at the dorsum of the mid distal forearm extending down to the bone with exposed bone of the radius. There is bone destruction and periosteal reaction highly suggestive for osteomyelitis. 2. Right wrist. No bone destruction. No fracture of the wrist. There is subluxation of the ulna relative to the radius.
--- NOTE | ~2024-02-17 | XR_ITS ---
EXAMINATION: XR TIBIA AND FIBULA, LEFT CLINICAL INFORMATION: Wound. History of intravenous drug use. COMPARISON: None available. TECHNIQUE: AP and lateral views of the left tibia and fibula were obtained. FINDINGS: Bones have normal alignment at the knee and ankle. The joint spaces are maintained. No erosion, periostitis or fracture. Soft tissue swelling is predominantly seen at the anterior aspect of the lower third of the extremity. No radiopaque foreign body or soft tissue gas in this region. No ankle joint effusion. XR/XR tibia fibula LT 2V IMPRESSION: * No evidence of osteomyelitis in the left lower extremity. * There is soft tissue swelling in the lower third of the lower extremity without soft tissue gas or radiopaque foreign body.
--- NOTE | ~2024-02-17 | XR_ITS ---
EXAMINATION: 1. Right forearm. 2. Right wrist. CLINICAL INFORMATION: wound/deformity to arm, hx IVDU COMPARISON: Right forearm November 30, 2020 TECHNIQUE: 1. Right forearm. 2 views 2. Right wrist. 2 views FINDINGS: 1. Right forearm. There is a large soft tissue defect at the dorsum of the mid distal forearm measures about 10 cm in length. Defect extends down to the bone appears exposed bone of the radius soft tissue defect. There is destruction of the radius discontinuity, L bowel 1.7 cm. Ends of the radius at this defect are normal with bone destruction and periosteal reaction highly suggestive for osteomyelitis The ulna is intact. There is disruption of the radial ulnar joint. The ulna is subluxed dorsally relative to the radius with reticular surface of the radius 1 cm distal to the radius. Radial deviation of the wrist. 2. Right wrist. No fracture. No dislocation. No bone destruction. XR/XR wrist RT 2V IMPRESSION: 1. Right forearm. Large soft tissue defect at the dorsum of the mid distal forearm extending down to the bone with exposed bone of the radius. There is bone destruction and periosteal reaction highly suggestive for osteomyelitis. 2. Right wrist. No bone destruction. No fracture of the wrist. There is subluxation of the ulna relative to the radius.
[2024-02-17 15:50] LABS: MANUAL DIFF FLAG NO
[2024-02-17 15:54] LABS: Basophils Percent Auto 0.3 % (0-2); Eosinophils Absolute Auto 0.1 X10*3/uL (0.0-0.4); Eosinophils Percent Auto 0.9 % (0-4); Imm Gran Abs Auto 0.03 X10*3/uL (0.00-0.03); Imm Gran Pct Auto 0.4 % (0.0-0.4); Lymphocytes Absolute Auto 0.9 X10*3/uL (1.2-4.9); Lymphocytes Percent Auto 13.3 % (20-40); Mean Corpuscular HGB Conc 29.4 g/dl (31.0-35.0); Mean Corpuscular Hemoglobin 19.6 pg (27.0-33.0); Mean Corpuscular Volume 66.7 fL (80.0-98.0); Monocytes Absolute Auto 0.4 X10*3/uL (0.1-1.2); Monocytes Percent Auto 5.9 % (2-11); Neutrophils Absolute Auto 5.5 x10*3/uL (2.0-8.3); Neutrophils Percent Auto 79.2 % (45-73); Platelet Count 350 X10*3/uL (160-400); Red Cell Distribution Width 19.5 % (11.0-16.0); White Blood Count 6.9 X10*3/uL (4.8-10.8)
[2024-02-17 16:04] LABS: Hemoglobin 5.3 g/dl (12.0-16.0)
[2024-02-17 16:08] LABS: Lactic Acid 0.7 mmol/L (0.5-2.0)
[2024-02-17 16:27] LABS: Alanine Aminotransferase 26 U/L (0-31); Albumin Level 3.2 g/dL (3.5-5.0); Alkaline Phosphatase 105 U/L (39-117); Anion Gap 9 (12-20); Aspartate Amino Transferase 42 U/L (5-31); Bilirubin Total 0.3 mg/dL (0.0-1.0); Blood Urea Nitrogen 12 mg/dL (9-16); Calcium 9.1 mg/dL (8.4-10.2); Carbon Dioxide 27 mmol/L (22-29); Chloride 105 mmol/L (96-108); Creatinine Clr Calc Pharmacy 85.2; Estimated Glomerular Filt Rate > 60; Glucose Random 93 mg/dL (60-115); Potassium 4.6 mmol/L (3.3-5.1); Sodium 136 mmol/L (135-145); Total Protein 9.9 g/dL (6.5-8.0)
--- NOTE | 2024-02-17 16:39 | PM.IMHP ---
[facility] Medical History Ectopic Surgical History H/O tubal ligation Social History Household Members: None Housing: Homeless Do you presently have visiting nurse or other home services: No Unable to assess alcohol history related to: Refusing to respond Alcohol intake: unknown Substance Use Type: Heroin Do you have a plan to hurt others: No Plan service: No Current occupational status: unemployed Meds Allergies Allergy/AdvReac Type Severity Reaction Status Date / Time sulfamethoxazole Allergy Intermediate rash Verified 02/17/24 15:20 [From BACTRIM] trimethoprim [From BACTRIM] Allergy Intermediate rash Verified 02/17/24 15:20 hydrocodone [HYDROCODONE] Allergy Unknown UNKNOWN Verified 02/17/24 15:20 Sulfa (Sulfonamide Allergy Unknown hives Verified 02/17/24 15:20 Antibiotics) Active Medications: Current Medications Acetaminophen (Acetaminophen 325 Mg Tablet) 650 mg PO Q6H PRN PRN Reason: Pain, Mild (Pain Scale 1-3) Sodium Chloride (Ns) 100 mls @ 100 mls/hr IV ONCE ONE Stop: 02/17/24 17:23 Sodium Chloride (Ns) 100 mls @ 100 mls/hr IV ONCE ONE Stop: 02/17/24 17:23 Sodium Chloride (Ns) 100 mls @ 100 mls/hr IV ONCE ONE Stop: 02/17/24 17:23 Sodium Chloride (Ns) 1,000 mls @ 999 mls/hr IVCONT .Q1H1M ONE Stop: 02/17/24 17:25 Vancomycin HCl 1,250 mg/ (Sodium Chloride) 250 mls @ 166.667 mls/hr IV ONCE ONE Stop: 02/17/24 17:54 Piperacillin Sod/Tazobactam (Sod 3.375 gm/ Sodium Chloride) 50 mls @ 100 mls/hr IV ONCE ONE Stop: 02/17/24 16:54 Melatonin (Melatonin 3 Mg Tablet) 6 mg PO BEDTIME PRN PRN Reason: Insomnia Ondansetron HCl (Ondansetron Hcl 4 Mg/2 Ml Vial) 4 mg IVPUSH Q8H PRN PRN Reason: Nausea and Vomiting Pharmacy Consult (Consult Rx Vancomycin Dosing) 1 each MISCELLANE DAILY PRN PRN Reason: Consult order Sodium Chloride (0.9 % Sodium Chloride Flush 3 Ml Syringe) 3 ml IVFLUSH QSHIFT [facility] Physical Exam Vital Signs and Narrative: Vital Signs: Last Vital Signs Temp 97.4 F 02/17/24 16:00 Pulse 64 02/17/24 16:00 Resp 16 02/17/24 16:00 BP 114/69 02/17/24 16:00 Pulse Ox 98 02/17/24 16:00 O2 Del Method Room Air 02/17/24 16:00 BMI result Body Mass Index 17.5 Results Labs 02/17/24 15:39 02/17/24 16:07 Labs: Laboratory Results - last 24 hr 02/17/24 02/17/24 15:39 16:07 MCV 66.7 L MCH 19.6 L MCHC 29.4 L RDW 19.5 H Plt Count 350 MPV 9.0 L Immature Gran % (Auto) 0.4 Neut % (Auto) 79.2 H Lymph % (Auto) 13.3 L [place] % (Auto) 5.9 Eos % (Auto) 0.9 Baso % (Auto) 0.3 Lymph # (Auto) 0.9 L [place] # (Auto) 0.4 Eos # (Auto) 0.1 Baso # (Auto) 0.0 Abs Immat Gran (auto) 0.03 Absolute Neuts (auto) 5.5 Absolute Nucleated RBC 0.000 Nucleated RBC % (auto) 0.0 Anion Gap 9 L Estim Creat Clear Calc 85.2 Estimated GFR > 60 Random Glucose 93 Lactic Acid 0.7 Calcium 9.1 D Total Bilirubin 0.3 AST 42 H ALT 26 Alkaline Phosphatase 105 Total Protein 9.9 H Albumin 3.2 L Quality VTE VTE Risk Level:: Medical - moderate - high VTE Device Contraindication: N/A - Device Ordered VTE Drug Contraindication: Treatment Not Indicated
[2024-02-17] MEDS: Piperacillin Sodium/Tazobactam 3.375 GM in 0.9 % Sodium Chloride 50 ML IV (16:41)
--- NOTE | 2024-02-17 16:48 | P.CONGS_ITS ---
History of Present Illness Consult details Consult date: 02/17/24 Narrative: 43-year-old female referred to me for an open wound on the right forearm. She he has a known IV drug user. She apparently has had this large open wound on the right forearm for several months. She had an x-ray done here in the ER because of a deformity of the arm and there was note of a complete fracture of the radius, the ends of the should bone discontinuous from each other and displaced It is uncertain as to when this exact injury occurred. The patient is not historian. She does state that she has had this large open wound for several months. She describes pain on the area. She admits to chronic use of IV drugs Review of Systems 2 Constitutional: Constitutional: Denies chills, Denies fever(s) and Reports lethargy Cardiovascular: Cardiovascular: Denies chest pain Respiratory: Respiratory: Denies cough Gastrointestinal: Gastrointestinal: Denies abdominal pain Genitourinary: Genitourinary: Denies difficulty voiding PMFSH Past Medical History Medical History (Updated 02/18/24 @ 00:02 by Carmela Mcmahon) Polysubstance abuse Open fracture of arm Ectopic Surgical History Surgical History H/O tubal ligation Social History Social History Household Members: None Housing: Homeless Do you presently have visiting nurse or other home services: No Unable to assess alcohol history related to: Refusing to respond Alcohol intake: unknown Substance Use Type: Heroin Advance Directives: No Advance Directives Information Provided: No Do you have a plan to hurt others: No Plan service: No Current occupational status: unemployed Meds Allergies Allergy/AdvReac Type Severity Reaction Status Date / Time sulfamethoxazole Allergy Intermediate rash Verified 02/17/24 15:20 [From BACTRIM] trimethoprim [From BACTRIM] Allergy Intermediate rash Verified 02/17/24 15:20 hydrocodone [HYDROCODONE] Allergy Unknown UNKNOWN Verified 02/17/24 15:20 Sulfa (Sulfonamide Allergy Unknown hives Verified 02/17/24 15:20 Antibiotics) Active Medications: Current Medications Acetaminophen (Acetaminophen 325 Mg Tablet) 650 mg PO Q6H PRN PRN Reason: Pain, Mild (Pain Scale 1-3) Sodium Chloride (Ns) 100 mls @ 100 mls/hr IV ONCE ONE Stop: 02/17/24 17:23 Sodium Chloride (Ns) 100 mls @ 100 mls/hr IV ONCE ONE Stop: 02/17/24 17:23 Sodium Chloride (Ns) 100 mls @ 100 mls/hr IV ONCE ONE Stop: 02/17/24 17:23 Sodium Chloride (Ns) 1,000 mls @ 999 mls/hr IVCONT .Q1H1M ONE Stop: 02/17/24 17:25 Vancomycin HCl 1,250 mg/ (Sodium Chloride) 250 mls @ 166.667 mls/hr IV ONCE ONE Stop: 02/17/24 17:54 Piperacillin Sod/Tazobactam (Sod 3.375 gm/ Sodium Chloride) 50 mls @ 100 mls/hr IV ONCE ONE Stop: 02/17/24 16:54 Last Admin: 02/17/24 16:41 Dose: 100 mls/hr Melatonin (Melatonin 3 Mg Tablet) 6 mg PO BEDTIME PRN PRN Reason: Insomnia Ondansetron HCl (Ondansetron Hcl 4 Mg/2 Ml Vial) 4 mg IVPUSH Q8H PRN PRN Reason: Nausea and Vomiting Pharmacy Consult (Consult Rx Vancomycin Dosing) 1 each MISCELLANE DAILY PRN PRN Reason: Consult order Sodium Chloride (0.9 % Sodium Chloride Flush 3 Ml Syringe) [facility] Medications ?Medication ?Instructions ?Recorded ?Confirmed ?Last Taken ?Type methadone 10 mg/mL oral 65 mg PO DAILY 02/17/24 02/17/24 02/16/24 History concentrate (Methadose) methadone 10 mg/mL oral 165 mg PO DAILY 02/17/24 02/17/24 02/17/24 09:47 History concentrate (Methadose) Physical Exam 2 Vital Signs: Vital Signs: Last Vital Signs Temp 97.4 F 02/17/24 16:00 Pulse 64 02/17/24 16:00 Resp 16 02/17/24 16:00 BP 114/69 02/17/24 16:00 Pulse Ox 98 02/17/24 16:00 O2 Del Method Room Air 02/17/24 16:00 BMI result Body Mass Index 17.5 Const: Other: Answers questions General: comfortable and no acute distress Resp: Effort & Inspection: normal respiratory effort Cardio: Rate: regular rate GI: Palpation (GI): Soft to palpation and not firm Extrem: Other: Large open wound on the right forearm, about 15 cm long, by 10 cm wide, with this expose soft tissue, disconnected ends of the radius covered by some thin granulation tissue, she areas of nonviable tissue Results Labs 02/17/24 15:39 02/17/24 16:07 Labs: Abnormal lab results 02/17/24 02/17/24 Range/Units 15:39 16:07 RBC 2.70 L (4.20-5.50) X10*6/uL Hgb 5.3 L* (12.0-16.0) g/dl Hct 18.0 L* (37.0-47.0) % MCV 66.7 L (80.0-98.0) fL MCH 19.6 L (27.0-33.0) pg MCHC 29.4 L (31.0-35.0) g/dl RDW 19.5 H (11.0-16.0) % MPV 9.0 L (9.4-12.3) fL Neut % (Auto) 79.2 H (45-73) % Lymph % (Auto) 13.3 L (20-40) % Lymph # (Auto) 0.9 L (1.2-4.9) X10*3/uL Anion Gap 9 L (12-20) AST 42 H (5-31) U/L Total Protein 9.9 H (6.5-8.0) g/dL Albumin 3.2 L (3.5-5.0) g/dL Short CBC 02/17/24 Range/Units 15:39 WBC 6.9 (4.8-10.8) X10*3/uL Hgb 5.3 L* (12.0-16.0) g/dl Hct 18.0 L* (37.0-47.0) % Plt Count 350 (160-400) X10*3/uL BMP 02/17/24 16:07 Sodium 136 Potassium 4.6 Chloride 105 Carbon Dioxide 27 BUN 12 Creatinine 0.64 Calcium 9.1 D Liver Function 02/17/24 Range/Units 16:07 Total Bilirubin 0.3 (0.0-1.0) mg/dL AST 42 H (5-31) U/L ALT 26 (0-31) U/L Alkaline Phosphatase 105 (39-117) U/L Albumin 3.2 L (3.5-5.0) g/dL All other labs normal. Assessment and Plan (1) Open fracture of arm: Status: Acute The exact mechanism of injury is unknown. It is also uncertain as to how long she has had this injury. The orthopedic service should be involved with her care. The wound may need to be debrided but she may require multiple procedures for this of the open fracture. I am uncertain as to whether this radial fracture can be salvaged with fixation. She also has anemia without any use significant blood loss acutely. I have discussed the above with the emergency room staff and the hospitalist service. Procedures Date of Service Date of Service: 02/21/24
--- NOTE | 2024-02-17 17:13 | HE.PHANOTE ---
Methadone Verification Pharmacy has received the methadone verification from [facility]. Patient last received methadone 165 mg on 02/17/24 @ 0967 with a take home bottles of 65 mg for the afternoon. Information from THOMAS Chand at [facility]. Aggie Dunaway, FaithD
--- NOTE | 2024-02-17 17:13 | PC.NURSE ---
methadone verification: [facility] ([facility]) [place], verified by Jagruti Santo dosed 165mg 02/17/24 @ 0947 w 65mg take home for this evening. faxed to pharmacy
--- NOTE | 2024-02-17 17:18 | ED_ITS ---
HPI - Wound/Laceration General Chief Complaint: Wound/Laceration Stated Complaint: R ARM/L LEG PAIN, IN PD CUSTODY PER EMS Time Seen by Provider: 02/17/24 16:07 Source: patient and police Mode of arrival: EMS Limitations: no limitations History of Present Illness HPI narrative: Patient comes to the emergency room by ambulance in police custody complaining of chronic right arm pain. Patient states that she is an IV drug user and has been injecting in her right forearm for over a year. Patient states she has a chronic wound but the pain is getting much worse, draining fluid. Also, patient complaining of feeling fatigue, shortness of breath with exertion, weak. Patient states that she is known to have anemia, she is supposed to be taking iron but does not do so. Patient denies black stool or bright red blood per rectum. Related Data Home Medications ?Medication ?Instructions ?Recorded ?Confirmed methadone 10 mg/mL oral 65 mg PO DAILY 02/17/24 02/17/24 concentrate (Methadose) methadone 10 mg/mL oral 165 mg PO DAILY 02/17/24 02/17/24 concentrate (Methadose) Allergies Allergy/AdvReac Type Severity Reaction Status Date / Time sulfamethoxazole Allergy Intermediate rash Verified 02/17/24 15:20 [From BACTRIM] trimethoprim [From BACTRIM] Allergy Intermediate rash Verified 02/17/24 15:20 hydrocodone [HYDROCODONE] Allergy Unknown UNKNOWN Verified 02/17/24 15:20 Sulfa (Sulfonamide Allergy Unknown hives Verified 02/17/24 15:20 Antibiotics) Review of Systems 2 Review of Systems: Constitutional : No Weight loss, No Fever, No Chills, No Night Sweats, complaining of fatigue ENT/Mouth : No Hearing loss, No Ear Pain, No Nasal Congestion, No Sinus Pain, No Hoarseness, No sore throat, No Rhinorrhea, No Swallowing Difficulty Eyes: No Eye Pain, No Swelling, No Redness, No Foreign Body, No Discharge, No Vision Changes Cardiovascular : No Chest Pain, No SOB, No Dyspnea on Exertion, No Orthopnea, No Edema, No Palpitations Respiratory : No Cough, No Sputum, No Wheezing, No Smoke Exposure, No Dyspnea Gastrointestinal : No Nausea, No Vomiting, No Diarrhea, No Constipation, No abdominal Pain, No Hematochezia, No Melena Genitourinary : no irregular bleeding, No Dysuria, No Urinary Frequency, No Hematuria, No Urinary Incontinence, No Urgency, No Flank Pain, No Urinary Flow Changes, No Hesitancy Musculoskeletal : No joint pain, No Myalgias, No Joint Swelling Skin : Chronic wound in the left forearm Neuro : No Weakness, No Numbness, No Paresthesias, No Loss of Consciousness, No Dizziness, No Headache Psych : No Anxiety/Panic, No Depression, No SI/HI/AH/VH, No Social Issues, Heme/Lymph: No Bruising, No Bleeding,No Lymphadenopathy Endocrine : No Polyuria, No Polydipsia, No Temperature Intolerance [facility] Past Medical History Medical History (Updated 02/17/24 @ 18:11 by Vonnie Mina MD) Polysubstance abuse Open fracture of arm Ectopic Surgical History H/O tubal ligation Social History Social History Household Members: None Housing: Homeless Do you presently have visiting nurse or other home services: No Unable to assess alcohol history related to: Refusing to respond Alcohol intake: unknown Substance Use Type: Heroin Advance Directives: No Advance Directives Information Provided: No Do you have a plan to hurt others: No Plan service: No Current occupational status: unemployed Physical Exam 2 Vital Signs: Vital Signs: Last Vital Signs Temp 97.4 F 02/17/24 18:37 Pulse 67 02/17/24 18:37 Resp 18 02/17/24 18:37 BP 133/83 02/17/24 18:37 Pulse Ox 99 02/17/24 18:37 O2 Del Method Room Air 02/17/24 18:37 BMI result Body Mass Index 17.5 Const: Other: Appearance: Alert. Oriented X3. No acute distress. Eyes: Pupils equal, round and reactive to light. ENT: Pharynx normal. Neck: Normal inspection. Neck supple. No lymph nodes noted. No crepitus CVS: Normal heart rate and rhythm. Pulses normal. Normal S1 and S2 Respiratory: No respiratory distress. Breath sounds normal. No Wheezing. No rales Abdomen: Soft and nontender. No rigidity. No distention. Patient declined digital rectal exam Skin: Skin warm and dry. See extremities below Extremities: Patient's right arm has large 10 cm chronic wound with exposed bone, see pictures below. Patient is unable to flex and extend the fingers. Neuro: Oriented X 3. Cranial nerves 2-12 grossly intact. However, there is limited movement in the right forearm and the right hand Psych: Calm, cooperative Medications Administered Discontinued Medications Generic Name Dose Route Start Last Admin Trade Name Madelyn PRN Reason Stop Dose Admin Sodium Chloride 1,000 mls @ 999 mls/hr 02/17/24 16:25 02/17/24 17:31 Ns IVCONT 02/17/24 17:25 999 mls/hr .Q1H1M ONE Administration Vancomycin HCl 1,250 mg/ 250 mls @ 166.667 mls/hr 02/17/24 16:25 02/17/24 17:31 Sodium Chloride IV 02/17/24 17:54 166.67 mls/hr ONCE ONE Administration Piperacillin Sod/Tazobactam 50 mls @ 100 mls/hr 02/17/24 16:25 02/17/24 17:31 Sod 3.375 gm/ Sodium Chloride IV 02/17/24 16:54 Infused ONCE ONE Infusion Morphine Sulfate 4 mg 02/17/24 16:24 02/17/24 17:27 Morphine Sulfate 4 Mg/Ml Cartridge IVPUSH 02/17/24 16:25 4 mg ONCE ONE Administration Protocol Medical Decision Making Medical Decision Making MDM Narrative: My interpretation of labs: Patient's hemoglobin is 5.3, hematocrit 18.0. -Patient states that she has history of anemia, is supposed to be taking iron but she is now doing so. Patient denies red blood stool or black stool. Patient refused digital rectal exam. Discussed with the patient that she will need a blood transfusion -patient has never had blood transfusions, I discussed with the patient the risks versus benefits of a blood transfusion. Patient agreeable to the blood transfusion. -surprisingly, patient's white blood cell count is normal and lactic is normal. -my interpretation of x-rays of the forearm: Patient has obvious osteomyelitis, erosion of the radius, fracture of the radius -patient receiving IV fluids, vancomycin and Zosyn -I discussed the patient with Dr. Dodson from general surgery, recommended consult with Orthopedics. Amputation may be considered -I discussed the patient and imaging with with the PA of Orthopedics who consulted her attending Dr. Barnard. Grafts and plastic surgery considered and also requested vascular surgery consult -vascular surgery is not available today, general surgery covering -overall, it was concluded that the patient's need to be transferred to a higher level of care -[facility] and our local hospitals are close for transfer. [place] system was able to take our patient, patient being transferred. 1 unit of blood has been started -patient is under police custody, PD department is working with the see the health unit clerk the legal aspect of the patient being transferred to [place]. -patient takes methadone twice a day, patient was given 65 mg here in the emergency room after confirming her split dose Differential Diagnosis Differential Diagnoses: The differential diagnosis associated with the presentation includes (Cellulitis, abscess, osteomyelitis, fracture) Admission/Observation Consideration of admission/observation: Escalation of care including admission/observation considered Consult Healthcare Provider Management of the patient was discussed with: Spray Cementer (I consulted general surgery, Orthopedics, vascular surgery) Lab Data MDM Lab Attestation statement: I reviewed the patient's lab results. 02/17/24 15:39 02/17/24 16:07 Labs: Lab Results 02/17/24 02/17/24 02/17/24 Range/Units 15:39 16:07 17:03 WBC 6.9 (4.8-10.8) X10*3/uL RBC 2.70 L (4.20-5.50) X10*6/uL Hgb 5.3 L* (12.0-16.0) g/dl Hct 18.0 L* (37.0-47.0) % MCV 66.7 L (80.0-98.0) fL MCH 19.6 L (27.0-33.0) pg MCHC 29.4 L (31.0-35.0) g/dl RDW 19.5 H (11.0-16.0) % Plt Count 350 (160-400) X10*3/uL MPV 9.0 L (9.4-12.3) fL Immature Gran % (Auto) 0.4 (0.0-0.4) % Neut % (Auto) 79.2 H (45-73) % Lymph % (Auto) 13.3 L (20-40) % [place] % (Auto) 5.9 (2-11) % Eos % (Auto) 0.9 (0-4) % Baso % (Auto) 0.3 (0-2) % Lymph # (Auto) 0.9 L (1.2-4.9) X10*3/uL [place] # (Auto) 0.4 (0.1-1.2) X10*3/uL Eos # (Auto) 0.1 (0.0-0.4) X10*3/uL Baso # (Auto) 0.0 (0.0-0.2) X10*3/uL Abs Immat Gran (auto) 0.03 (0.00-0.03) X10*3/uL Absolute Neuts (auto) 5.5 (2.0-8.3) x10*3/uL Absolute Nucleated RBC 0.000 (0.0-0.012) X10*3/uL Nucleated RBC % (auto) 0.0 (0.0-0.2) /100WBC Sodium 136 (135-145) mmol/L Potassium 4.6 (3.3-5.1) mmol/L Chloride 105 (96-108) mmol/L Carbon Dioxide 27 (22-29) mmol/L Anion Gap 9 L (12-20) BUN 12 (9-16) mg/dL Creatinine 0.64 (0.5-1.4) mg/dL Estim Creat Clear Calc 85.2 Estimated GFR > 60 Random Glucose 93 (60-115) mg/dL Lactic Acid 0.7 (0.5-2.0) mmol/L Calcium 9.1 D (8.4-10.2) mg/dL Total Bilirubin 0.3 (0.0-1.0) mg/dL AST 42 H (5-31) U/L ALT 26 (0-31) U/L Alkaline Phosphatase 105 (39-117) U/L Total Creatine Kinase 33 Cancelled (26-140) U/L C-Reactive Protein 3.96 H Cancelled (< or = 0.50) mg/dL Total Protein 9.9 H (6.5-8.0) g/dL Albumin 3.2 L (3.5-5.0) g/dL Urine Color Urine Appearance Urine pH (5.0-9.0) Ur Specific [place] (1.005-1.025) Urine Protein (Neg-Trace) mg/dL Urine Glucose (UA) (Negative) mg/dL Urine Ketones (Negative) mg/dL Urine Blood (Negative) Urine Nitrite (Negative) Ur Leukocyte Esterase (Negative) Urine Opiates Screen (Not Detect) Ur Buprenorphine Scrn (Not Detect) ng/mL Ur Oxycodone Screen (Not Detect) ng/mL Urine Methadone Screen (Not Detect) ng/mL Urine Fentanyl Screen (Not Detect) Ur Barbiturates Screen (Not Detect) Ur Phencyclidine Scrn (Not Detect) Ur Amphetamines Screen (Not Detect) U Benzodiazepines Scrn (Not Detect) Urine Cocaine Screen (Not Detect) U Marijuana (THC) Screen (Not Detect) Blood Type O Positive Antibody Screen NEGATIVE Crossmatch See Detail 02/17/24 Range/Units 17:15 WBC (4.8-10.8) X10*3/uL RBC (4.20-5.50) X10*6/uL Hgb (12.0-16.0) g/dl Hct (37.0-47.0) % MCV (80.0-98.0) fL MCH (27.0-33.0) pg MCHC (31.0-35.0) g/dl RDW (11.0-16.0) % Plt Count (160-400) X10*3/uL MPV (9.4-12.3) fL Immature Gran % (Auto) (0.0-0.4) % Neut % (Auto) (45-73) % Lymph % (Auto) (20-40) % [place] % (Auto) (2-11) % Eos % (Auto) (0-4) % Baso % (Auto) (0-2) % Lymph # (Auto) (1.2-4.9) X10*3/uL [place] # (Auto) (0.1-1.2) X10*3/uL Eos # (Auto) (0.0-0.4) X10*3/uL Baso # (Auto) (0.0-0.2) X10*3/uL Abs Immat Gran (auto) (0.00-0.03) X10*3/uL Absolute Neuts (auto) (2.0-8.3) x10*3/uL Absolute Nucleated RBC (0.0-0.012) X10*3/uL Nucleated RBC % (auto) (0.0-0.2) /100WBC Sodium (135-145) mmol/L Potassium (3.3-5.1) mmol/L Chloride (96-108) mmol/L Carbon Dioxide (22-29) mmol/L Anion Gap (12-20) BUN (9-16) mg/dL Creatinine (0.5-1.4) mg/dL Estim Creat Clear Calc Estimated GFR Random Glucose (60-115) mg/dL Lactic Acid (0.5-2.0) mmol/L Calcium (8.4-10.2) mg/dL Total Bilirubin (0.0-1.0) mg/dL AST (5-31) U/L ALT (0-31) U/L Alkaline Phosphatase (39-117) U/L Total Creatine Kinase (26-140) U/L C-Reactive Protein (< or = 0.50) mg/dL Total Protein (6.5-8.0) g/dL Albumin (3.5-5.0) g/dL Urine Color Yellow Urine Appearance Clear Urine pH 7.0 (5.0-9.0) Ur Specific [place] 1.010 (1.005-1.025) Urine Protein Negative (Neg-Trace) mg/dL Urine Glucose (UA) Negative (Negative) mg/dL Urine Ketones Negative (Negative) mg/dL Urine Blood Negative (Negative) Urine Nitrite Negative (Negative) Ur Leukocyte Esterase Negative (Negative) Urine Opiates Screen POSITIVE H (Not Detect) Ur Buprenorphine Scrn Not Detected (Not Detect) ng/mL Ur Oxycodone Screen Not Detected (Not Detect) ng/mL Urine Methadone Screen Positive H (Not Detect) ng/mL Urine Fentanyl Screen POSITIVE H (Not Detect) Ur Barbiturates Screen Not Detected (Not Detect) Ur Phencyclidine Scrn Not Detected (Not Detect) Ur Amphetamines Screen Not Detected (Not Detect) U Benzodiazepines Scrn Not Detected (Not Detect) Urine Cocaine Screen POSITIVE H (Not Detect) U Marijuana (THC) Screen Not Detected (Not Detect) Blood Type Antibody Screen Crossmatch Independent Interpretation I performed an independent interpretation of an: Plain X-Ray Radiology Impression Discussion of test interpretation with radiology: I have reviewed the radiologist's reading. Radiologist Impression: 1. Right forearm. There is a large soft tissue defect at the dorsum of the mid distal forearm measures about 10 cm in length. Defect extends down to the bone appears exposed bone of the radius soft tissue defect. There is destruction of the radius discontinuity, L bowel 1.7 cm. Ends of the radius at this defect are normal with bone destruction and periosteal reaction highly suggestive for osteomyelitis The ulna is intact. There is disruption of the radial ulnar joint. The ulna is subluxed dorsally relative to the radius with reticular surface of the radius 1 cm distal to the radius. Radial deviation of the wrist. 2. Right wrist. No fracture. No dislocation. No bone destruction. XR/XR forearm RT 2V IMPRESSION: 1. Right forearm. Large soft tissue defect at the dorsum of the mid distal forearm extending down to the bone with exposed bone of the radius. There is bone destruction and periosteal reaction highly suggestive for osteomyelitis. 2. Right wrist. No bone destruction. No fracture of the wrist. There is subluxation of the ulna relative to the radius. Critical Care Time Critical Care Time Critical Care Time: Yes Total Critical Care Time: 75 Attestation: I have personally provided critical care time. Time includes review of lab data, radiology results, discussion with consultants, and monitoring for potential decompensation. Intervention performed as documented. Discharge Plan Discharge Clinical Impression: Arm osteomyelitis, Fracture, radius, Anemia Patient Disposition: [facility] Hospital Transfer Details: [facility] in [place], [place], ED to ED, accepted by Dr. Jorge Prescriptions: No Action methadone [Methadose] 10 mg/mL Concentrate 165 mg PO DAILY methadone [Methadose] 10 mg/mL Concentrate 65 mg PO DAILY Print Language: Emirati
[2024-02-17 17:21] LABS: Appearance Urine Clear; Color Urine Yellow; Glucose Urine UA Negative (Negative); Leukocyte Esterase Urine Negative (Negative); Nitrite Urine Negative (Negative); Urine Blood Negative (Negative); Urine Ketones Negative (Negative); Urine Protein Negative (Neg-Trace)
--- NOTE | 2024-02-17 17:23 | PM.EVENT ---
Event Note Date of Service: 02/17/24 Event Note: Was asked to evaluate the patient for possible admission. Patient presents with right forearm open fracture with purulent cellulitis and underlying osteomyelitis. Also found to be anemic with hemoglobin 5.3. Was evaluated by General surgery at bedside in the ER and Orthopedic surgery was consulted. Orthopedic surgery felt that patient would need complex procedure involving multiple specialists and hence recommended patient be transferred to a tertiary care center. Time Spent With Patient Time: Total time managing care of this patient today ____ minutes.
[2024-02-17 17:27] LABS: C Reactive Protein 3.96 mg/dL (< or = 0.50)
[2024-02-17] MEDS: Morphine Sulfate 4 MG/ML CARTRIDGE IVPUSH (17:27)
[2024-02-17 17:31] LABS: Amphetamine Screen Urine Not Detected (Not Detect); Barbiturates, Urine Not Detected (Not Detect); Benzodiazepines Screen Urine Not Detected (Not Detect); Buprenorphine Scr Not Detected (Not Detect); Cannabinoid Screen Urine Not Detected (Not Detect); Cocaine Screen Urine POSITIVE (Not Detect); Fentanyl, urine POSITIVE (Not Detect); Methadone Screen, Urine Positive (Not Detect); Opiate Screen Urine POSITIVE (Not Detect); Oxycodone Screen Urine Not Detected (Not Detect); Phencyclidine Screen Urine Not Detected (Not Detect)
[2024-02-17] MEDS: vancomycin HCL 1,250 MG in 0.9 % Sodium Chloride 250 ML 166.67 MG IV (17:31)
[2024-02-17] MEDS: 0.9 % Sodium Chloride 1,000 ML 999 ML IVCONT (17:31)
[2024-02-17] MEDS: methADONE HCl 20 MG/2 ML ORAL.CONC 65 MG PO (18:53)
--- NOTE | 2024-02-17 19:00 | PC.NURSE ---
pt medicated per DEC- METHADONE 65MG GIVEN- PT TRANSPORTED TO [facility] VIA ALS
--- NOTE | 2024-02-18 13:04 | PC.NURSE ---
Pt was transferred to [facility] with a unit of PRBC infusing
== END 2024-02-17 19:38 | disposition short-term general hospital (02) ==
PROVIDERS: Emergency Provider Emergency Medicine
DX: S52.91XA Unspecified fracture of right forearm, initial encounter for closed fracture (principal); S51.801A Unspecified open wound of right forearm, initial encounter; R06.02 Shortness of breath; F11.19 Opioid abuse with unspecified opioid-induced disorder; D64.9 Anemia, unspecified; R11.0 Nausea; M25.531 Pain in right wrist; M79.605 Pain in left leg; X58.XXXA Exposure to other specified factors, initial encounter; Y93.9 Activity, unspecified; Y92.9 Unspecified place or not applicable; Y99.8 Other external cause status; R53.83 Other fatigue; Z91.148 Patient's other noncompliance with medication regimen for other reason; Z79.899 Other long term (current) drug therapy
CPT/HCPCS: 36415; 73090; 73100; 73590; 80053; 80307; 81003; 82550; 83605; 85025; 86140; 86850; 86900; 86901; 86923; 87040; 92950; 96361; 96365; 96367; 96375; 99285; J2270; J2543; J3371; P9016

== ENCOUNTER → 2024-02-17 16:44 | Outpatient (BNV) | payer MEDICAID, SELFPAY | PROVIDERS: Emergency Provider Emergency Medicine; Visit Provider Surgery | DX: S42.309 Unspecified fracture of shaft of humerus, unspecified arm (principal) | CPT/HCPCS: 99283 ==

== ENCOUNTER 2024-05-06 12:05 | Emergency (ER) | payer MEDICAID, SELFPAY ==
[2024-05-06] VITALS (7 sets, daily range): BP systolic 96–130; BP diastolic 53–80; PULSE 57–88; RESP 12–18; TEMP 36.6–37.2; O2SAT 97–99; BMI 19.4
--- NOTE | ~2024-05-06 | XR_ITS ---
EXAMINATION: XR FOREARM, RIGHT CLINICAL INFORMATION: Evaluate wound COMPARISON: 02/17/2024 TECHNIQUE: AP and lateral views of the right forearm were obtained. FINDINGS: Again seen is a large soft tissue defect at the dorsum of the mid distal forearm measures about 9 cm in length. Defect extends to the bone appears exposed bone of the radius. There is a new destructive lesion seen in the distal one third of the ulna with surrounding periosteal reaction. Continued disruption of the distal radial ulnar joint with dorsal subluxation relative to the radius. Again seen is radial deviation at the wrist. XR/XR forearm RT 2V IMPRESSION: Large soft tissue defect with exposed bone of the radius. New destructive area in the ulna adjacent to this. All of these findings are concerning for ongoing, worsening osteomyelitis
--- NOTE | 2024-05-06 12:41 | PC.NURSE ---
Methadone dose verified with Isa at [facility], patient last dosed 05/05/24 at 9:15am with 175mg split dose 65mg in afternoon that is given as a take home dose
--- NOTE | 2024-05-06 13:03 | PC.NURSE ---
Arrived vis EMS after being in PD custody and stating she felt weak and lightheaded.Patient with wound to top of right arm. Wound with moderate amount of SS drainage. Patient reports 10/10 pain in arm. Wound also noted to left leg. Patient stating she uses heroin daily and also takes methadone. Changed over into hospital attire by security, [facility]
--- NOTE | 2024-05-06 14:56 | MHC.EDTECH ---
pt vital signs checked, pt asking for methadone, RN notified.
--- NOTE | 2024-05-06 15:28 | ECG_ITS ---
Test Reason : lightheadedness Blood Pressure : / mmHG Vent. Rate : 059 BPM Atrial Rate : 059 BPM P-R Int : 150 ms QRS Dur : 078 ms QT Int : 476 ms P-R-T Axes : 070 077 078 degrees QTc Int : 471 ms Sinus bradycardia Otherwise normal ECG When compared with ECG of 13-JUL-2018 20:17, No significant change was found Referred By: Hailey Kern Electronically Signed By:Julien Jeffrey
--- NOTE | 2024-05-06 16:00 | ED_ITS ---
HPI - General Adult General Chief complaint: General Medical Stated complaint: LIGHTHEADED,R ARM OPEN WOUND/INF X3M PER EMS Time Seen by Provider: 05/06/24 16:00 Source: patient, RN notes reviewed and old records reviewed History of Present Illness ED Provider: Gina Hernandez PA-C HPI narrative: 43-year-old female with a past medical history of IVDA, polysubstance abuse, anemia, presenting to the ED via EMS complaining of generalized fatigue/weakness, acute on chronic wound to right forearm, and left hand pain/swelling x awhile. Also reports subjective fever and chills. Admits to injecting heroin, & using cocaine. Denies CP/SOB, abdominal pain nausea/vomiting. Denies lightheadedness/dizziness at present Related Data Home Medications ?Medication ?Instructions ?Recorded ?Confirmed methadone 10 mg/mL oral 65 mg PO DAILY 02/17/24 02/17/24 concentrate (Methadose) methadone 10 mg/mL oral 165 mg PO DAILY 02/17/24 02/17/24 concentrate (Methadose) Allergies Allergy/AdvReac Type Severity Reaction Status Date / Time sulfamethoxazole Allergy Intermediate rash Verified 05/06/24 12:23 [From BACTRIM] trimethoprim [From BACTRIM] Allergy Intermediate rash Verified 05/06/24 12:23 hydrocodone [HYDROCODONE] Allergy Unknown UNKNOWN Verified 05/06/24 12:23 Sulfa (Sulfonamide Allergy Unknown hives Verified 05/06/24 12:23 Antibiotics) Review of Systems 2 Review of Systems: Constitutional:+ Fever, + Chills, + fatigue ENT/Mouth: No Ear Pain, No Nasal Congestion, No sore throat, No Rhinorrhea, No Swallowing Difficulty Cardiovascular: No Chest Pain, No SOB Respiratory: No Cough Gastrointestinal: No Nausea, No Vomiting, No Abdominal pain Genitourinary: No Dysuria, No Urinary Frequency, No Hematuria, No Flank Pain Musculoskeletal: + joint pain, +Myalgias,+ Joint Swelling Skin: + Skin Lesions, No rash Neuro: + generally Weakness, No Numbness, No Paresthesias Yes all other systems are reviewed and are negative Constitutional: Constitutional: Reports as per HPI [facility] Past Medical History Attestation statement: The following information was validated with the patient. Source: old records reviewed Medical History Polysubstance abuse Open fracture of arm Ectopic Surgical History H/O tubal ligation Social History Social History Household Members: None Housing: Homeless Do you presently have visiting nurse or other home services: No Unable to assess alcohol history related to: Refusing to respond Alcohol intake: former Smoked in Last 30 Days: Yes Use of substances other than those prescribed or required for medical reasons: Yes Substance Use Type: Heroin Substance Use Frequency: Chronic Longstanding Advance Directives: No service: No Current occupational status: unemployed Physical Exam ED Vital Signs: Vital Signs - 24 hr 05/06/24 12:22 05/06/24 14:00 05/06/24 18:02 Temperature 97.9 F 98.6 F 98.9 F Pulse Rate 62 72 61 Respiratory Rate 18 12 18 Blood Pressure 113/62 105/69 116/66 Pulse Oximetry 98 99 98 Oxygen Delivery Method Room Air Room Air Room Air 05/06/24 19:23 05/06/24 21:08 Temperature 98.5 F 98.2 F Pulse Rate 69 69 Respiratory Rate 14 14 Blood Pressure 130/53 L 96/58 L Pulse Oximetry 98 97 Oxygen Delivery Method Room Air Room Air BMI result Body Mass Index 19.4 Const General: no acute distress Orientation/consciousness: patient oriented x3 HENMT Head: Yes normal to inspection and Yes atraumatic Ears: hearing grossly normal bilaterally General nose exam: Normal external nose present Face and sinus: Yes normal facial exam Eyes General: appearance normal, both eyes and all related structures EOM: EOMs intact bilaterally Neck Neck: Yes normal visual inspection and Yes no meningeal signs Resp Effort & Inspection: normal respiratory effort and no respiratory distress Cardio Rate: regular rate Heart sounds: S1 normal heart sound present and S2 normal heart sound present Peripheral pulses: Peripheral pulses 2+ throughout GI Inspection: Yes normal to inspection Palpation (GI): Soft to palpation, nontender, no guarding and not rigid Neuro General: patient oriented x3, tone normal and no meningeal signs Cranial nerves: Yes CN's II-XII intact bilaterally Gait exam (Neuro): Normal gait present Extrem Other: Please refer to images above. Right forearm with large open wound with exposed bone Left hand with appreciable swelling, erythema, warmth, and limited flexion/extension secondary to pain. Neurovascularly intact. Left lower extremity with healing wound with mild surrounding erythema. Warm to touch Course Course Course Narrative: -1814--no leukocytosis. H&H at patient's baseline -tox screen positive for opiates, methadone, fentanyl, cocaine XR forearm RT 2V IMPRESSION: Large soft tissue defect with exposed bone of the radius. New destructive area in the ulna adjacent to this. All of these findings are concerning for ongoing, worsening osteomyelitis > will consult Orthopedic TIMI Chaudhry who consulted with Dr. Masters and reported this is beyond the scope of their practice and needs to be transferred to [facility] or [facility] as patient likely needs a flap/plastics coverage -1843--will attempt transfer to [facility] as patient is already known there for same issue -1849--spoke with [facility] transfer line, they cannot accept patient until some [facility] are attempted, will try [facility] and [facility] -1947--[facility] denied due to capacity -spoke with orthopedic attending Dr. Chacon at [facility], & reports patient can be seen/follow up outpatient for this chronic wound/osteomyelitis, however will page out to Hand for concern of tenosynovitis of contralateral side -spoke with hand specialist Dr. Sanchez at [facility], agreeable to evaluate patient, will attempt direct admission to hospitalist vs ED to ED transfer. -spoke with hospitalist at [facility], uncomfortable with tenosynovitis admission, discussing case with his attending, will hear back -2143--patient will be ED to ED transfer, accepting Dr. Sanchez Medications Administered Discontinued Medications Generic Name Dose Route Start Last Admin Trade Name Iainq PRN Reason Stop Dose Admin Vancomycin HCl 1,250 mg/ 250 mls @ 166.667 mls/hr 05/06/24 16:10 05/06/24 18:00 Sodium Chloride IV 05/06/24 17:39 166.67 mls/hr ONCE ONE Administration Piperacillin Sod/Tazobactam 100 mls @ 200 mls/hr 05/06/24 16:10 05/06/24 17:54 Sod 4.5 gm/ Sodium Chloride IV 05/06/24 16:39 Infused ONCE ONE Infusion Sodium Chloride 1,000 mls @ 999 mls/hr 05/06/24 16:15 05/06/24 17:11 Ns IV 05/06/24 17:15 999 mls/hr .Q1H1M LUCÍA Administration Methadone HCl 65 mg 05/06/24 15:49 05/06/24 16:04 Methadone Hcl 20 Mg/2 Ml Oral.Conc PO 05/06/24 15:50 65 mg ONCE ONE Administration Medical Decision Making Medical Decision Making MDM Narrative: 43-year-old female with a past medical history of IVDA, polysubstance abuse, anemia, presenting to the ED via EMS complaining of generalized fatigue/weakness, acute on chronic wound to right forearm, and left hand pain/swelling x awhile. On exam Vital signs stable, NAD, please refer to images above. Concern for cellulitis, osteomyelitis, and tenosynovitis. Rule out anemia/metabolic abnormalities. Low suspicion for severe sepsis at this time. Patient was seen in our ED on 02/17/2024 for similar symptoms, was transferred to [facility], surgery was recommended for skin graft however patient refused. Patient states she has not been evaluated since that admission at [facility] Plan: EKG, labs, UA, tox screen, empiric IV antibiotics, x-ray, consult specialist Please refer to course for remaining clinical decision making, interpretation of labs/imaging results, and discussions with consultants and/or family members. Differential Diagnosis Differential Diagnoses: The differential diagnosis associated with the presentation includes As above Admission/Observation Consideration of admission/observation: Escalation of care including admission/observation considered Consult Healthcare Provider Management of the patient was discussed with: [employer] Lab Data [facility] Lab Attestation statement: I reviewed the patient's lab results. 05/06/24 16:27 05/06/24 16:27 Labs: Lab Results 05/06/24 05/06/24 Range/Units 16:27 16:45 WBC 6.2 (4.8-10.8) X10*3/uL RBC 3.18 L (4.20-5.50) X10*6/uL Hgb 8.2 L D (12.0-16.0) g/dl Hct 25.8 L D (37.0-47.0) % MCV 81.1 (80.0-98.0) fL MCH 25.8 L (27.0-33.0) pg MCHC 31.8 (31.0-35.0) g/dl RDW 15.9 (11.0-16.0) % Plt Count 214 D (160-400) X10*3/uL MPV 8.4 L (9.4-12.3) fL Immature Gran % (Auto) 0.5 H (0.0-0.4) % Neut % (Auto) 76.2 H (45-73) % Lymph % (Auto) 16.2 L (20-40) % Terry % (Auto) 6.5 (2-11) % Eos % (Auto) 0.3 (0-4) % Baso % (Auto) 0.3 (0-2) % Lymph # (Auto) 1.0 L (1.2-4.9) X10*3/uL Terry # (Auto) 0.4 (0.1-1.2) X10*3/uL Eos # (Auto) 0.0 (0.0-0.4) X10*3/uL Baso # (Auto) 0.0 (0.0-0.2) X10*3/uL Abs Immat Gran (auto) 0.03 (0.00-0.03) X10*3/uL Absolute Neuts (auto) 4.7 (2.0-8.3) x10*3/uL Absolute Nucleated RBC 0.000 (0.0-0.012) X10*3/uL Nucleated RBC % (auto) 0.0 (0.0-0.2) /100WBC PT 12.6 (11.1-13.3) SEC INR 1.0 (0.9-1.1) Sodium 138 (135-145) mmol/L Potassium 3.8 (3.3-5.1) mmol/L Chloride 104 (96-108) mmol/L Carbon Dioxide 26 (22-29) mmol/L Anion Gap 12 (12-20) BUN 7 L (9-16) mg/dL Creatinine 0.62 (0.5-1.4) mg/dL Estim Creat Clear Calc 88.7 Estimated GFR > 60 Random Glucose 98 (60-115) mg/dL Lactic Acid 0.6 (0.5-2.0) mmol/L Calcium 9.5 (8.4-10.2) mg/dL Magnesium 2.0 (1.6-2.6) mg/dL Total Bilirubin 0.3 (0.0-1.0) mg/dL AST 31 (5-31) U/L ALT 20 (0-31) U/L Alkaline Phosphatase 95 (39-117) U/L Troponin I High Sens < 2.7 (<3.5-17.0) ng/L Total Protein 8.5 H (6.5-8.0) g/dL Albumin 3.3 L (3.5-5.0) g/dL Lipase 7 L (8-78) U/L Urine Color Yellow Urine Appearance Clear Urine pH 7.5 (5.0-9.0) Ur Specific [place] 1.010 (1.005-1.025) Urine Protein Negative (Neg-Trace) mg/dL Urine Glucose (UA) Negative (Negative) mg/dL Urine Ketones Negative (Negative) mg/dL Urine Blood Negative (Negative) Urine Nitrite Negative (Negative) Ur Leukocyte Esterase Trace H (Negative) Urine RBC 0-2 (0-2) /HPF Urine WBC 0-5 (0-5) /HPF Ur Squamous Epith Cells 0-2 (0-2) /HPF Urine Bacteria None Seen (None Seen) Hyaline Casts 0-2 (0-2) /LPF Urine Opiates Screen POSITIVE H (Not Detect) Ur Buprenorphine Scrn Not Detected (Not Detect) ng/mL Ur Oxycodone Screen Not Detected (Not Detect) ng/mL Urine Methadone Screen Positive H (Not Detect) ng/mL Urine Fentanyl Screen POSITIVE H (Not Detect) Ur Barbiturates Screen Not Detected (Not Detect) Ur Phencyclidine Scrn Not Detected (Not Detect) Ur Amphetamines Screen Not Detected (Not Detect) U Benzodiazepines Scrn Not Detected (Not Detect) Urine Cocaine Screen POSITIVE H (Not Detect) U Marijuana (THC) Screen Not Detected (Not Detect) Independent Interpretation I performed an independent interpretation of an: EKG and Plain X-Ray Radiology Impression Discussion of test interpretation with radiology: I have reviewed the radiologist's reading. Independent Historian Clinical information obtained from an independent historian. History obtained from or confirmed by: EMS External Record Review External record reviewed: Inpatient record, Office record, Outpatient record, Prior outpatient labs, Prior outpatient radiology, Primary care record and Outside ED record Tests considered The following testing was considered but not selected: As above Prescription Management I considered prescription management with: Pain Medication and Antibiotic Social Determinants Patient?s care significantly limited by Social Determinants of Health including: Inadequate housing, Low income, Alcoholism and drug addiction in family, Problems related to primary support group and Unemployment Critical Care Time Critical Care Time Critical Care Time: Yes Total Critical Care Time: 75 Attestation: I have personally provided critical care time exclusive of time spent on separately billable procedures. Time includes review of lab data, radiology results, discussion with consultants, and monitoring for potential decompensation. Intervention performed as documented. Discharge Plan Discharge Clinical Impression: Tenosynovitis, Cellulitis, Osteomyelitis Patient Disposition: [facility] Transfer Details: ED to ED transfer [facility] accepting physician Dr. Sanchez Prescriptions: No Action methadone [Methadose] 10 mg/mL Concentrate 165 mg PO DAILY methadone [Methadose] 10 mg/mL Concentrate 65 mg PO DAILY Print Language: German
[2024-05-06] MEDS: methADONE HCl 20 MG/2 ML ORAL.CONC 65 MG PO (16:04)
[2024-05-06 16:38] LABS: MANUAL DIFF FLAG NO
[2024-05-06 16:40] LABS: Basophils Percent Auto 0.3 % (0-2); Eosinophils Percent Auto 0.3 % (0-4); Hematocrit 25.8 % (37.0-47.0); Hemoglobin 8.2 g/dl (12.0-16.0); Imm Gran Abs Auto 0.03 X10*3/uL (0.00-0.03); Imm Gran Pct Auto 0.5 % (0.0-0.4); Lymphocytes Percent Auto 16.2 % (20-40); Mean Corpuscular HGB Conc 31.8 g/dl (31.0-35.0); Mean Corpuscular Hemoglobin 25.8 pg (27.0-33.0); Mean Corpuscular Volume 81.1 fL (80.0-98.0); Mean Platelet Volume 8.4 fL (9.4-12.3); Monocytes Absolute Auto 0.4 X10*3/uL (0.1-1.2); Monocytes Percent Auto 6.5 % (2-11); Neutrophils Absolute Auto 4.7 x10*3/uL (2.0-8.3); Neutrophils Percent Auto 76.2 % (45-73); Platelet Count 214 X10*3/uL (160-400); Red Blood Count 3.18 X10*6/uL (4.20-5.50); Red Cell Distribution Width 15.9 % (11.0-16.0); White Blood Count 6.2 X10*3/uL (4.8-10.8)
[2024-05-06 16:48] LABS: Lactic Acid 0.6 mmol/L (0.5-2.0)
[2024-05-06 16:49] LABS: Prothrombin Time 12.6 SEC (11.1-13.3)
[2024-05-06 16:53] LABS: Alanine Aminotransferase 20 U/L (0-31); Albumin Level 3.3 g/dL (3.5-5.0); Alkaline Phosphatase 95 U/L (39-117); Anion Gap 12 (12-20); Aspartate Amino Transferase 31 U/L (5-31); Bilirubin Total 0.3 mg/dL (0.0-1.0); Blood Urea Nitrogen 7 mg/dL (9-16); Calcium 9.5 mg/dL (8.4-10.2); Carbon Dioxide 26 mmol/L (22-29); Chloride 104 mmol/L (96-108); Creatinine Clr Calc Pharmacy 88.7; Estimated Glomerular Filt Rate > 60; Glucose Random 98 mg/dL (60-115); Lipase 7 U/L (8-78); Potassium 3.8 mmol/L (3.3-5.1); Sodium 138 mmol/L (135-145); Total Protein 8.5 g/dL (6.5-8.0)
[2024-05-06 17:02] LABS: Troponin-I High Sensitivity < 2.7 ng/L (<3.5-17.0)
[2024-05-06 17:08] LABS: Amphetamine Screen Urine Not Detected (Not Detect); Barbiturates, Urine Not Detected (Not Detect); Benzodiazepines Screen Urine Not Detected (Not Detect); Buprenorphine Scr Not Detected (Not Detect); Cannabinoid Screen Urine Not Detected (Not Detect); Cocaine Screen Urine POSITIVE (Not Detect); Fentanyl, urine POSITIVE (Not Detect); Methadone Screen, Urine Positive (Not Detect); Opiate Screen Urine POSITIVE (Not Detect); Oxycodone Screen Urine Not Detected (Not Detect); Phencyclidine Screen Urine Not Detected (Not Detect)
[2024-05-06] MEDS: Piperacillin Sodium/Tazobactam 4.5 GM in 0.9 % Sodium Chloride 100 ML IV (17:09)
[2024-05-06 17:11] LABS: Appearance Urine Clear; Color Urine Yellow; Glucose Urine UA Negative (Negative); Leukocyte Esterase Urine Trace (Negative); Nitrite Urine Negative (Negative); PH 7.5 (5.0-9.0); UMIC TRIGGER UACC YES; Urine Blood Negative (Negative); Urine Ketones Negative (Negative); Urine Protein Negative (Neg-Trace)
[2024-05-06] MEDS: 0.9 % Sodium Chloride 1,000 ML 999 ML IV (17:11)
[2024-05-06 17:56] LABS: Bacteria Urine None Seen (None Seen); Hyaline Casts Urine 0-2 /LPF (0-2); RBC Urine 0-2 /HPF (0-2); Squamous Epithelial Cell Urine 0-2 /HPF (0-2); WBC Urine 0-5 /HPF (0-5)
[2024-05-06] MEDS: vancomycin HCL 1,250 MG in 0.9 % Sodium Chloride 250 ML 166.67 MG IV (18:00)
--- NOTE | 2024-05-06 18:03 | PC.NURSE ---
Alert and oriented. 22g iv placed in left wrist, non-adherent dressing placed over right arm wound. VSS, patient requesting to be left alone to sleep because she has not slept in days
--- NOTE | 2024-05-06 23:11 | PC.NURSE ---
attempt to call report to [facility], no nurses available. Number left to call back for report.
== END 2024-05-06 23:40 | disposition short-term general hospital (02) ==
PROVIDERS: Nurse Practitioner Family; Physician Assistant; Emergency Provider Internal Medicine
DX: M65.9 Synovitis and tenosynovitis, unspecified (principal); M86.9 Osteomyelitis, unspecified; L03.114 Cellulitis of left upper limb; M79.602 Pain in left arm; F19.10 Other psychoactive substance abuse, uncomplicated; R53.1 Weakness; R42 Dizziness and giddiness; S51.801D Unspecified open wound of right forearm, subsequent encounter; X58.XXXD Exposure to other specified factors, subsequent encounter; D64.9 Anemia, unspecified; F11.20 Opioid dependence, uncomplicated
CPT/HCPCS: 36415; 73090; 80053; 80307; 81001; 81003; 83605; 83690; 83735; 84484; 85025; 85610; 87040; 93005; 96365; 96375; 99285; J2543; J3371

== ENCOUNTER → 2024-05-06 15:28 | Outpatient (BNV) | payer MEDICAID, SELFPAY | PROVIDERS: Emergency Provider Internal Medicine; Visit Provider Internal Medicine Cardiovascular Disease | DX: R42 Dizziness and giddiness (principal) | CPT/HCPCS: 93010 ==

== ENCOUNTER 2025-01-12 08:23 | Emergency (ER) | payer MEDICAID, SELFPAY ==
--- NOTE | ~2025-01-12 | CT_ITS ---
EXAMINATION: CT FOREARM WITH CONTRAST, RIGHT CLINICAL INFORMATION: Right hand and wrist COMPARISON: None available. TECHNIQUE: Contiguous axial images through the right forearm using 2 mm collimation with bone and soft tissue algorithm. Sagittal and coronal reformatted images acquired. This CT examination was performed using dose optimization techniques as appropriate, variously including the following: *Automated exposure control *Adjustment of mA and/or kV according to patient size (this includes techniques or standardized protocols for targeted exams where dose is matched to indication/reason for exam; i.e. extremities or head) *Use of iterative reconstruction technique. DLP: 2490 mGy centimeter. FINDINGS: Acute comminuted radially displaced fracture distal diaphysis of the radius with exposed proximal segment and extensive skin laceration. Acute cortical irregularity without displacement distal ulna. CT/CT forearm RT w IV con IMPRESSION: Acute comminuted radially displaced fracture distal diaphysis of the radius with the exposed osseous structures and extensive skin laceration volume loss. Electronically signed by: Thiago Trevizo MD 01/12/2025 12:47 PM EDT
--- NOTE | ~2025-01-12 | CT_ITS ---
EXAMINATION: CT HEAD WITHOUT CONTRAST CLINICAL INFORMATION: [facility] COMPARISON: March 21, 2018. TECHNIQUE: Contiguous axial imaging was performed from the skull base to vertex without intravenous administration of contrast. This CT examination was performed using dose optimization techniques as appropriate, variously including the following: *Automated exposure control *Adjustment of mA and/or kV according to patient size (this includes techniques or standardized protocols for targeted exams where dose is matched to indication/reason for exam; i.e. extremities or head) *Use of iterative reconstruction technique DLP: 2490 mGy-cm FINDINGS: No acute intracranial hemorrhage or mass effect midline shift hydrocephalus or herniation. Sellar/suprasellar region demonstrated no gross masses. Craniocervical junction is intact. CT/CT head/brain wo IV con IMPRESSION: No acute brain abnormality. Stable. Electronically signed by: Thiago Trevizo MD 01/12/2025 12:39 PM EDT
--- NOTE | ~2025-01-12 | XR_ITS ---
EXAMINATION: XR CHEST CLINICAL INFORMATION: s/p intubation COMPARISON: July 13, 2018. TECHNIQUE: Frontal view of the chest was obtained. FINDINGS: The endotracheal tube tip ends in the thoracic inlet level 6 cm above michael. There is an NG tube in the mediastinum and in low the left hemidiaphragm likely stomach region. Right-sided central venous line placed via right internal jugular vein ends in the SVC/right atrial junction. No gross consolidation, pleural effusion or pneumothorax. Cardiomediastinal silhouette size is normal. Mild S-shaped curvature of the thoracolumbar spine. XR/XR chest 1V IMPRESSION: Status post intubation ending 6 cm above michael. Right-sided central venous line placement at the SVC/right atrium junction. Status post NG tube placement and then in the stomach region. No acute airspace disease. Electronically signed by: Thiago Trevizo MD 01/12/2025 09:57 AM EDT
--- NOTE | ~2025-01-12 | CT_ITS ---
EXAMINATION: CT LOWER EXTREMITY WITH IV CONTRAST RIGHT HISTORY: wound rt thigh. TECHNIQUE: Serial 2 mm helically acquired images were obtained through the right leg after the intravenous demonstration 85 mL Omnipaque 350 per standard departmental protocol. Coronal and sagittal reformats were also obtained and evaluated. One or more of the following techniques was used for dose reduction: Automated exposure control, adjustment of the mA and/or kV according to patient size, use of iterative reconstruction technique. DLP: 273 mGy-cm COMPARISON: There are no prior studies for comparison. FINDINGS: There is marked diffuse subcutaneous edema. There is an open wound in the popliteal fossa. Multiple bubbles of gas are seen within the soft tissues of the popliteal fossa. There is a moderate to large amount of retained intermuscular fluid extending from the popliteal fossa inferiorly to the level of the ankle. This collection measures approximately 27 x 6 x 1.5 cm. An abscess is not excluded. The bones are intact. CT/CT lower leg RT w IV con IMPRESSION: [The popliteal fossa with multiple bubbles of soft tissue gas. 27 x 6 x 1.5 cm collection of intramuscular fluid in the posterior calf. Abscess is not excluded. Electronically signed by: Hema Pineda MD 01/12/2025 01:01 PM EDT
--- NOTE | ~2025-01-12 | CT_ITS ---
EXAMINATION: CT CHEST WITH IV CONTRAST, CT ABDOMEN PELVIS WITH IV CONTRAST INDICATION: sob, vomiting blood COMPARISON: None. TECHNIQUE: CT scan of the chest, abdomen and pelvis was performed following administration of 85 mL Omnipaque 350 using standard departmental protocol. Coronal and sagittal reformatted images were generated and reviewed. Oral contrast material was not administered at the request of the referring physician. This CT exam was performed with one or more of the following dose reduction techniques: automated exposure control, adjustment of the mA and/or kV according to patient size, use of iterative reconstruction technique. DLP: 662 mGy-cm CHEST: Endotracheal and orogastric tubes is seen in place. THYROID: There is patchy airspace opacity in both lower lobes which may represent pneumonia or aspiration. LUNGS: The lungs are clear. MEDIASTINUM: There is no mediastinal lymphadenopathy. WILIAM: There is no hilar lymphadenopathy. CARDIOVASCULATURE: The heart is normal in size. There is no pericardial effusion. The thoracic aorta is normal in caliber. DEGREE OF CORONARY CALCIFICATION: not evaluable, due to dense contrast in the coronary arteries PLEURA: There is no pleural effusion. No pneumothorax. MAIN AIRWAYS: The mainstem bronchi and proximal branches are patent. AXILLA: There is no axillary lymphadenopathy. SOFT TISSUES: Unremarkable. BONES: The bones are intact. ABDOMEN: LIVER: The liver is normal in size and contour. No liver mass is identified. The hepatic and portal veins are patent, but demonstrate dense enhancement consistent with hypoperfusion syndrome.. GALLBLADDER / BILE DUCTS: The gallbladder is unremarkable. There is no intra or extrahepatic biliary ductal dilatation. SPLEEN: The spleen is normal in size. There is marked patchy contrast enhancement of the spleen. PANCREAS: The pancreas is unremarkable in appearance. ADRENAL GLANDS: The adrenal glands demonstrate marked hyperenhancement. KIDNEYS/RETROPERITONEUM: No renal calculi are identified. There is no hydronephrosis. No renal masses are identified. LYMPH NODES: No abdominal or pelvic lymphadenopathy. VASCULATURE: There is dense contrast-enhancement of the abdominal aorta and the IVC. MESENTERY/PERITONEUM: No free fluid. No masses. There is no free intraperitoneal gas. STOMACH: The stomach is collapsed with an orogastric tube. SMALL BOWEL: There is marked mucosal hyperenhancement of the small bowel. COLON: There is mucosal hyperenhancement of the colon. APPENDIX: The appendix is not seen, however no inflammatory changes are seen adjacent to the cecum. URINARY BLADDER/PELVIC ORGANS: The urinary bladder is collapsed with a Mullins catheter. The uterus is unremarkable. BONES / SOFT TISSUES: No suspicious bony or soft tissue abnormalities. CT/CT abdomen pelvis w IV con IMPRESSION: 1. Patchy airspace opacities in both lower lobes, consistent with pneumonia or aspiration. 2. Marked hyperenhancement of all of the vascular structures as well as the adrenal glands and small and large bowel mucosa. Findings are compatible with hypoperfusion complex. Electronically signed by: Hema Pineda MD 01/12/2025 12:49 PM EDT
[2025-01-12] MEDS: Piperacillin Sodium/Tazobactam 3.375 GM in 0.9 % Sodium Chloride 50 ML IV (08:47)
--- NOTE | 2025-01-12 08:49 | ED.GENADULT ---
HPI - General Adult General Chief complaint: Wound/Laceration Stated complaint: LETHARGIC, ?SEPSIS PER EMS Time Seen by Provider: 01/12/25 08:33 Source: EMS Mode of arrival: EMS Limitations: altered mental status History of Present Illness ED Provider: TIMI Perea HPI narrative: 44-year-old female hx of IVDA, Hep C, anemia, cocaine use disorder, heroin abuse presents with altered mental status from home minimally responsive on arrival and hypoglycemic. Immediately oral glucose given. Patient became minimally responsive, Narcan given with good effect then patient started vomiting blood. She has 2 large wounds 1 to the right wrist in 1 in the right thigh/tib fib region. Patient initially speaking however quickly becomes minimally responsive. Very poor historian Per EMS hx of IVDA and has been injecting into wounds. Related Data Home Medications ?Medication ?Instructions ?Recorded ?Confirmed methadone 10 mg/mL oral 65 mg PO DAILY 02/17/24 02/17/24 concentrate (Methadose) methadone 10 mg/mL oral 165 mg PO DAILY 02/17/24 02/17/24 concentrate (Methadose) Allergies Allergy/AdvReac Type Severity Reaction Status Date / Time sulfamethoxazole Allergy Intermediate rash Verified 01/12/25 09:27 [From BACTRIM] trimethoprim [From BACTRIM] Allergy Intermediate rash Verified 01/12/25 09:27 hydrocodone [HYDROCODONE] Allergy Unknown UNKNOWN Verified 01/12/25 09:27 Sulfa (Sulfonamide Allergy Unknown hives Verified 01/12/25 09:27 Antibiotics) Review of Systems Review of Systems: Yes all other systems are reviewed and are negative PMFSH Past Medical History Attestation statement: The following information was validated with the patient. Source: old records reviewed and nursing notes reviewed Medical History Polysubstance abuse Open fracture of arm Ectopic Surgical History H/O tubal ligation Social History Social History Household Members: None Housing: Homeless Do you presently have visiting nurse or other home services: No Unable to assess alcohol history related to: Refusing to respond Alcohol intake: former Substance Use Type: Heroin Advance Directives: No Advance Directives Information Provided: No service: No Current occupational status: unemployed Physical Exam ED Vital Signs: Vital Signs - 24 hr 01/12/25 09:28 01/12/25 12:01 Temperature 94.1 F L Pulse Rate 108 H Respiratory Rate 20 Blood Pressure 139/50 L Fraction of Inspired Oxygen 100 BMI result Body Mass Index 21.6 vss Appearance: Responds only to painful stimuli. No acute distress.? Head: Normocephalic, atraumatic, no step-offs or deformities Eyes: Pupils equal, round and reactive to light.? Neck: Normal inspection.? Neck supple.? CVS: Normal heart rate and rhythm.? Pulses normal.? Respiratory: No respiratory distress.? Breath sounds normal.? Abdomen: Soft and nontender.? Skin: Skin warm and dry.? + pale skin color.? Normal skin turgor.? + very faint palpable pulses to right lower extremity 1+ dorsalis pedis anterior tibialis with mottled skin from the groin down to the toes. With large wound to the right thigh images below. Right wrist unable to palpate pulses. Large open wound. Images below. Extremities: No lower extremity edema.? No calf ttp. Global weakness Back: No midline tenderness, no C-spine tenderness, full range of motion, no CVA tenderness bilaterally Neuro: Oriented X1 ( after being sternal rubbed) .? Course Course Course Narrative: 0900 Immediately on arrival general surgeon called. Came to the bedside. He is willing to take patient to the OR however he would like vascular and hand on board. Unfortunately we do not have either of the specialties. We do have an ICU bed that will be opening up in the near future however. Ortho/hand not present on site to do right upper extremity procedure if needed. Vascular not present. Therefore it is most appropriate to transfer patient to tertiary facility. Will begin calling facilities to see if there are available beds. Reevaluation(s) Reevaluation #1: CBC w/ leukocytosis of 35.8. Lactic Chemistry hemolyzed PH 7.06, pCO2 35, PO2 542 bicarb 10. Time: 10:00 Reevaluation #2: Spoke w/ at [facility] patient accepted to trauma ICU. CCT transport will be arranged and I will facilitate this. Will send images via pacs. Time: 11:08 Reevaluation #3: UA clean for infection. Time: 11:13 Additional Reevaluation(s): 1130 Critical call from the lab 11%bandemia 1137 Critical care team here for transport. The remainder of labs are still pending however will communicate them with 1207 Clindamycin was not hung prior to transfer. Protonix not given Bicarb not given 1211 Chemistry resulted after patient left sodium 120 she was receiving IV fluids, potassium 5.4. BUN 152, creatinine 3.38. Glucose 805. Calcium 7.1. Dr. Corona aware of these results. 1310 Films reviewed and shared w/ trauma Consultations Consultation #1: Attending note: Garry Alarcon: The patient presented profoundly ill with what is probably a metabolic encephalopathy and a very persistent hypoglycemia which is probably driven by severe sepsis. the appearance and general exam of her right leg is very ominous and highly suggestive of necrotizing fasciitis in both the calf and the thigh. Additionally the patient has an extremely deep in chronic wound of the right wrist with previous x-ray showing a complete erosion of the distal radius in the area of this large wound. The patient was critically ill. she had a diminished level of consciousness and started vomiting coffee-ground emesis after arrival in the emergency room. It was clear she needed airway control and so she was intubated. Peripheral access was difficult so a triple-lumen catheter was placed. IV antibiotics including Zosyn, vancomycin, and clindamycin were ordered. Blood products were also ordered. IV fluids ordered. General surgery and Orthopedics were consulted. The patient will likely need extensive surgery to both Her right arm and her right leg with a consideration of amputation of both of these limbs.. We have no hand coverage today. In any event the severe nature of the patient's critical illness suggest that the patient really would be better served at a tertiary care facility. Therefore arrangements were made for transfer to [facility]. I attempted to contact the patient's mother whose contact information was in her chart. I called and left a message but after several calls never made it through to anyone. Medications Administered Discontinued Medications Generic Name Dose Route Start Last Admin Trade Name Freq PRN Reason Stop Dose Admin Dextrose 25 gm 01/12/25 12:16 01/12/25 09:07 Dextrose 50 % 25 Gm/50 Ml Syringe IVPUSH 01/12/25 12:17 25 gm ONCE ONE Administration Dextrose 25 gm 01/12/25 12:16 01/12/25 09:26 Dextrose 50 % 25 Gm/50 Ml Syringe IVPUSH 01/12/25 12:17 25 gm ONCE ONE Administration Dextrose 25 gm 01/12/25 12:16 01/12/25 09:07 Dextrose 50 % 25 Gm/50 Ml Syringe IVPUSH 01/12/25 12:17 25 gm ONCE ONE Administration Dextrose 25 gm 01/12/25 12:16 01/12/25 09:17 Dextrose 50 % 25 Gm/50 Ml Syringe IVPUSH 01/12/25 12:17 25 gm ONCE ONE Administration Glucose 15 gm 01/12/25 08:38 01/12/25 11:55 Glucose Gel 15 Gm Gel..Gram. PO 01/12/25 08:39 15 gm ONCE ONE Administration Piperacillin Sod/Tazobactam 50 mls @ 100 mls/hr 01/12/25 08:47 01/12/25 09:10 Sod 3.375 gm/ Sodium Chloride IV 01/12/25 09:16 0 mls/hr ONCE ONE Infusion Vancomycin HCl 1,500 mg/ 500 mls @ 333.333 mls/hr 01/12/25 10:00 01/12/25 10:06 Sodium Chloride IV 01/12/25 11:29 333.33 mls/hr ONCE ONE Administration Dextrose 1,000 mls @ 75 mls/hr 01/12/25 09:45 01/12/25 09:11 D10 IVCONT 75 mls/hr .[id number] LUCÍA Administration Midazolam HCl 50 mg in 50 mls @ 2 mls/hr 01/12/25 09:45 01/12/25 09:50 Versed IVCONT 2 mg/hr .Q24H LUCÍA 2 mls/hr Administration Protocol 2 MG/HR Fentanyl 1,000 mcg in 100 mls @ 0 mls/hr 01/12/25 09:45 01/12/25 09:50 Sublimaze/Ns IVCONT 25 mcg/hr .Q0M LUCÍA 2.5 mls/hr Administration Protocol Per Protocol Iohexol 85 ml 01/12/25 12:27 01/12/25 12:29 Iohexol 350 Mg/Ml 100 Ml Infus..Btl IV 01/12/25 12:28 85 ml ONCE ONE Administration Ketamine HCl 90 mg 01/12/25 09:25 01/12/25 09:09 Ketamine Hcl/Ns 50 Mg/5 Ml Syringe IVPUSH 01/12/25 09:26 90 mg ONCE ONE Administration Lorazepam 1 mg 01/12/25 09:19 01/12/25 09:21 Lorazepam 2 Mg/Ml Vial IVPUSH 01/12/25 09:20 1 mg ONCE ONE Administration Morphine Sulfate 4 mg 01/12/25 09:19 01/12/25 09:21 Morphine Sulfate 4 Mg/Ml Cartridge IVPUSH 01/12/25 09:20 4 mg ONCE ONE Administration Protocol Naloxone HCl 0.4 mg 01/12/25 08:49 01/12/25 09:00 Naloxone Hcl 0.4 Mg/Ml Vial IVPUSH 01/12/25 08:50 0.4 mg STAT STA Administration Ondansetron HCl 4 mg 01/12/25 09:26 01/12/25 09:04 Ondansetron Hcl 4 Mg/2 Ml Vial IVPUSH 01/12/25 09:27 4 mg ONCE ONE Administration Rocuronium [place] 60 mg 01/12/25 09:26 01/12/25 09:10 Rocuronium [place] 50 Mg/5 Ml Vial IVPUSH 01/12/25 09:27 60 mg ONCE ONE Administration Procedures Central Line Placement Right IJ: Time Out Performed: Yes Patient Placed on Monitor/Pulse Ox: Yes MD Prep: mask, gown and gloves Central Line Prep: Chlorhexidine scrub and sterile drapes applied Local Anesthetic: lidocaine 1% Amount of anesthesia used (mL): 1 Ultrasound Used for Placement: Yes Central Line Lumen Inserted: triple Post Procedure: sutured in place, good blood return, all ports aspirated, flushed, capped and sterile dressing applied Post Procedure X-Ray: tip of catheter in good position and no pneumothorax seen Patient Tolerated Procedure: well and no complications Complications: none Intubation Intubation Type:: Endotracheal Tube Insertion Intubation Date:: 01/12/25 Intubation Time:: 08:55 Time out performed: Yes sedative: Ketamine Mg Given: 90 paralytic: Rocuronium Mg Given: 60 Laryngoscope: fiber optic video scope Assist Device Used: fiber optic device ET Tube Size: 7 ET Tube Uncuffed: No Tube Secured Depth (cm): 23 Tube Secured Location: lips Tube Placement Confirmation: visualized tube passing through cords, equal breath sounds bilaterally, no breath sounds over epigastrium and confirmation by capnometry Patient Tolerated Procedure: well Intubation Complications: none Medical Decision Making Medical Decision Making [facility] Narrative: [id number] 44-year-old female presents with altered mental status, right wrist wound to, right thigh wound On exam patient only responsive to pain ( r wrist wound and right thigh/tib fib wound) images in chart Concerns for severe sepsis likely originating from right wrist/right lower extremity wound. On arrival patient with respiratory rate of 6 to 7 history of IVDA Narcan given IV. Patient began to have large amounts of coffee-ground emesis she is pale, hypotensive, tachycardic minimally responsive. Proceeded with rapid sequence intubation ketamine and rocuronium used. I intubated using a 7.0 tube 21 at the lips w/ OG tube insertion. Positive colorimetric change. Chest x-ray will be used for confirmation however there was positive breath sounds bilaterally. Dr. Alarcon at bedside. Central line will be placed by my colleague. In the meantime, D10 running wide open, slowly improving glucose. Vanco, Zosyn and clindamycin also ordered. Patient is likely meeting severe sepsis. Will also hang 1 unit of uncross matched blood unable to obtain consent as patient is altered and unable to give consent. Type and screen pending. Plan- labs, imaging, imaging History and physical exam highly suspicious for necrotizing fasciitis of right wrist and right thigh. Also concerned for severe sepsis. Osteomyelitis also on differential. Differential Diagnosis Differential Diagnoses: The differential diagnosis associated with the presentation includes (History and physical exam highly suspicious for necrotizing fasciitis of right wrist and right thigh. Also concerned for severe sepsis. Osteomyelitis also on differential.) Admission/Observation Consideration of admission/observation: Escalation of care including admission/observation considered Consult Healthcare Provider Management of the patient was discussed with: [employer] (General surgery, orthopedic surgery) Lab Data [facility] Lab Attestation statement: I reviewed the patient's lab results. 01/12/25 10:35 01/12/25 11:34 Labs: Lab Results 01/12/25 01/12/25 01/12/25 Range/Units 08:35 08:45 08:53 WBC (4.8-10.8) X10*3/uL RBC (4.20-5.50) X10*6/uL Hgb (12.0-16.0) g/dl Hct (37.0-47.0) % MCV (80.0-98.0) fL MCH (27.0-33.0) pg MCHC (31.0-35.0) g/dl RDW (11.0-16.0) % Plt Count (160-400) X10*3/uL MPV (9.4-12.3) fL Immature Gran % (Auto) Neut % (Auto) Lymph % (Auto) [place] % (Auto) Eos % (Auto) Baso % (Auto) Lymph # (Auto) [place] # (Auto) Eos # (Auto) Baso # (Auto) Abs Immat Gran (auto) Absolute Neuts (auto) Absolute Nucleated RBC (0.0-0.012) X10*3/uL Nucleated RBC % (auto) (0.0-0.2) /100WBC Neutrophils % (Manual) (45-73) % Band Neutrophils % (3-5) % Lymphocytes % (Manual) (20-40) % Monocytes % (Manual) (2-11) % Eosinophils % (Manual) (0-4) % Metamyelocytes % % Myelocytes % % Promyelocytes % % Abs Neuts (Manual) (2.0-8.3) X10*3/uL Lymphocytes # (Manual) (1.2-4.9) X10*3/uL Monocytes # (Manual) (0.1-1.2) X10*3/uL Eosinophils # (Manual) (0.0-0.4) X10*3/uL Metamyelocytes # X10*3/uL Myelocytes # X10*/uL Promyelocytes # X10*3/uL Toxic Vacuolation Dohle Bodies Platelet Estimate (NORMAL) Plt Morphology Comment RBC Morphology Ovalocytes /OIF Acanthocytes (Spur) /OIF Schistocytes /OIF PT (10.9-12.4) SEC INR (0.9-1.1) O2 Saturation % ABG pH at Pt Temp (7.35-7.45) ABG pCO2 at Pt Temp (32-45) mmHg ABG pO2 at Pt Temp (83-108) mmHg ABG HCO3 (22-26) mmol/L ABG Base Excess (Actual) mmol/L Sodium (135-145) mmol/L Potassium (3.3-5.1) mmol/L Chloride (96-108) mmol/L Carbon Dioxide (22-29) mmol/L Anion Gap (12-20) BUN (9-16) mg/dL Creatinine (0.5-1.4) mg/dL Estim Creat Clear Calc Estimated GFR POC Glucose 59 L* 19 L* (60-115) mg/dL Random Glucose (60-115) mg/dL Lactic Acid 1.9 (0.5-2.0) mmol/L Calcium (8.4-10.2) mg/dL Magnesium (1.6-2.6) mg/dL Total Bilirubin (0.0-1.0) mg/dL AST (5-31) U/L ALT (0-31) U/L Alkaline Phosphatase (39-117) U/L Total Creatine Kinase (26-140) U/L Troponin I High Sens < 2.7 (<3.5-17.0) ng/L B-Natriuretic Peptide 329 H (<100) pg/mL Total Protein (6.5-8.0) g/dL Albumin (3.5-5.0) g/dL Lipase (8-78) U/L Urine Color Urine Appearance Urine pH (5.0-9.0) Ur Specific [place] (1.005-1.025) Urine Protein (Neg-Trace) mg/dL Urine Glucose (UA) (Negative) mg/dL Urine Ketones (Negative) mg/dL Urine Blood (Negative) Urine Nitrite (Negative) Ur Leukocyte Esterase (Negative) Urine RBC (0-2) /HPF Urine WBC (0-5) /HPF Ur Squamous Epith Cells (0-2) /HPF Urine Bacteria (None Seen) Epithelial Casts Hyaline Casts (0-2) /LPF Urine Opiates Screen (Not Detect) Ur Buprenorphine Scrn (Not Detect) ng/mL Ur Oxycodone Screen (Not Detect) ng/mL Urine Methadone Screen (Not Detect) ng/mL Urine Fentanyl Screen (Not Detect) Ur Barbiturates Screen (Not Detect) Ur Phencyclidine Scrn (Not Detect) Ur Amphetamines Screen (Not Detect) U Benzodiazepines Scrn (Not Detect) Urine Cocaine Screen (Not Detect) U Marijuana (THC) Screen (Not Detect) Blood Type Antibody Screen Crossmatch 01/12/25 01/12/25 01/12/25 Range/Units 08:58 09:05 09:12 WBC (4.8-10.8) X10*3/uL RBC (4.20-5.50) X10*6/uL Hgb (12.0-16.0) g/dl Hct (37.0-47.0) % MCV (80.0-98.0) fL MCH (27.0-33.0) pg MCHC (31.0-35.0) g/dl RDW (11.0-16.0) % Plt Count (160-400) X10*3/uL MPV (9.4-12.3) fL Immature Gran % (Auto) Neut % (Auto) Lymph % (Auto) [place] % (Auto) Eos % (Auto) Baso % (Auto) Lymph # (Auto) [place] # (Auto) Eos # (Auto) Baso # (Auto) Abs Immat Gran (auto) Absolute Neuts (auto) Absolute Nucleated RBC (0.0-0.012) X10*3/uL Nucleated RBC % (auto) (0.0-0.2) /100WBC Neutrophils % (Manual) (45-73) % Band Neutrophils % (3-5) % Lymphocytes % (Manual) (20-40) % Monocytes % (Manual) (2-11) % Eosinophils % (Manual) (0-4) % Metamyelocytes % % Myelocytes % % Promyelocytes % % Abs Neuts (Manual) (2.0-8.3) X10*3/uL Lymphocytes # (Manual) (1.2-4.9) X10*3/uL Monocytes # (Manual) (0.1-1.2) X10*3/uL Eosinophils # (Manual) (0.0-0.4) X10*3/uL Metamyelocytes # X10*3/uL Myelocytes # X10*/uL Promyelocytes # X10*3/uL Toxic Vacuolation Dohle Bodies Platelet Estimate (NORMAL) Plt Morphology Comment RBC Morphology Ovalocytes /OIF Acanthocytes (Spur) /OIF Schistocytes /OIF PT (10.9-12.4) SEC INR (0.9-1.1) O2 Saturation % ABG pH at Pt Temp (7.35-7.45) ABG pCO2 at Pt Temp (32-45) mmHg ABG pO2 at Pt Temp (83-108) mmHg ABG HCO3 (22-26) mmol/L ABG Base Excess (Actual) mmol/L Sodium (135-145) mmol/L Potassium (3.3-5.1) mmol/L Chloride (96-108) mmol/L Carbon Dioxide (22-29) mmol/L Anion Gap (12-20) BUN (9-16) mg/dL Creatinine (0.5-1.4) mg/dL Estim Creat Clear Calc Estimated GFR POC Glucose 39 L* 30 L* 46 L* (60-115) mg/dL Random Glucose (60-115) mg/dL Lactic Acid (0.5-2.0) mmol/L Calcium (8.4-10.2) mg/dL Magnesium (1.6-2.6) mg/dL Total Bilirubin (0.0-1.0) mg/dL AST (5-31) U/L ALT (0-31) U/L Alkaline Phosphatase (39-117) U/L Total Creatine Kinase (26-140) U/L Troponin I High Sens (<3.5-17.0) ng/L B-Natriuretic Peptide (<100) pg/mL Total Protein (6.5-8.0) g/dL Albumin (3.5-5.0) g/dL Lipase (8-78) U/L Urine Color Urine Appearance Urine pH (5.0-9.0) Ur Specific [place] (1.005-1.025) Urine Protein (Neg-Trace) mg/dL Urine Glucose (UA) (Negative) mg/dL Urine Ketones (Negative) mg/dL Urine Blood (Negative) Urine Nitrite (Negative) Ur Leukocyte Esterase (Negative) Urine RBC (0-2) /HPF Urine WBC (0-5) /HPF Ur Squamous Epith Cells (0-2) /HPF Urine Bacteria (None Seen) Epithelial Casts Hyaline Casts (0-2) /LPF Urine Opiates Screen (Not Detect) Ur Buprenorphine Scrn (Not Detect) ng/mL Ur Oxycodone Screen (Not Detect) ng/mL Urine Methadone Screen (Not Detect) ng/mL Urine Fentanyl Screen (Not Detect) Ur Barbiturates Screen (Not Detect) Ur Phencyclidine Scrn (Not Detect) Ur Amphetamines Screen (Not Detect) U Benzodiazepines Scrn (Not Detect) Urine Cocaine Screen (Not Detect) U Marijuana (THC) Screen (Not Detect) Blood Type Antibody Screen Crossmatch 01/12/25 01/12/25 01/12/25 Range/Units 09:17 09:25 09:31 WBC (4.8-10.8) X10*3/uL RBC (4.20-5.50) X10*6/uL Hgb (12.0-16.0) g/dl Hct (37.0-47.0) % MCV (80.0-98.0) fL MCH (27.0-33.0) pg MCHC (31.0-35.0) g/dl RDW (11.0-16.0) % Plt Count (160-400) X10*3/uL MPV (9.4-12.3) fL Immature Gran % (Auto) Neut % (Auto) Lymph % (Auto) [place] % (Auto) Eos % (Auto) Baso % (Auto) Lymph # (Auto) [place] # (Auto) Eos # (Auto) Baso # (Auto) Abs Immat Gran (auto) Absolute Neuts (auto) Absolute Nucleated RBC (0.0-0.012) X10*3/uL Nucleated RBC % (auto) (0.0-0.2) /100WBC Neutrophils % (Manual) (45-73) % Band Neutrophils % (3-5) % Lymphocytes % (Manual) (20-40) % Monocytes % (Manual) (2-11) % Eosinophils % (Manual) (0-4) % Metamyelocytes % % Myelocytes % % Promyelocytes % % Abs Neuts (Manual) (2.0-8.3) X10*3/uL Lymphocytes # (Manual) (1.2-4.9) X10*3/uL Monocytes # (Manual) (0.1-1.2) X10*3/uL Eosinophils # (Manual) (0.0-0.4) X10*3/uL Metamyelocytes # X10*3/uL Myelocytes # X10*/uL Promyelocytes # X10*3/uL Toxic Vacuolation Dohle Bodies Platelet Estimate (NORMAL) Plt Morphology Comment RBC Morphology Ovalocytes /OIF Acanthocytes (Spur) /OIF Schistocytes /OIF PT (10.9-12.4) SEC INR (0.9-1.1) O2 Saturation % ABG pH at Pt Temp (7.35-7.45) ABG pCO2 at Pt Temp (32-45) mmHg ABG pO2 at Pt Temp (83-108) mmHg ABG HCO3 (22-26) mmol/L ABG Base Excess (Actual) mmol/L Sodium (135-145) mmol/L Potassium (3.3-5.1) mmol/L Chloride (96-108) mmol/L Carbon Dioxide (22-29) mmol/L Anion Gap (12-20) BUN (9-16) mg/dL Creatinine (0.5-1.4) mg/dL Estim Creat Clear Calc Estimated GFR POC Glucose 68 35 L* 41 L* (60-115) mg/dL Random Glucose (60-115) mg/dL Lactic Acid (0.5-2.0) mmol/L Calcium (8.4-10.2) mg/dL Magnesium (1.6-2.6) mg/dL Total Bilirubin (0.0-1.0) mg/dL AST (5-31) U/L ALT (0-31) U/L Alkaline Phosphatase (39-117) U/L Total Creatine Kinase (26-140) U/L Troponin I High Sens (<3.5-17.0) ng/L B-Natriuretic Peptide (<100) pg/mL Total Protein (6.5-8.0) g/dL Albumin (3.5-5.0) g/dL Lipase (8-78) U/L Urine Color Urine Appearance Urine pH (5.0-9.0) Ur Specific [place] (1.005-1.025) Urine Protein (Neg-Trace) mg/dL Urine Glucose (UA) (Negative) mg/dL Urine Ketones (Negative) mg/dL Urine Blood (Negative) Urine Nitrite (Negative) Ur Leukocyte Esterase (Negative) Urine RBC (0-2) /HPF Urine WBC (0-5) /HPF Ur Squamous Epith Cells (0-2) /HPF Urine Bacteria (None Seen) Epithelial Casts Hyaline Casts (0-2) /LPF Urine Opiates Screen (Not Detect) Ur Buprenorphine Scrn (Not Detect) ng/mL Ur Oxycodone Screen (Not Detect) ng/mL Urine Methadone Screen (Not Detect) ng/mL Urine Fentanyl Screen (Not Detect) Ur Barbiturates Screen (Not Detect) Ur Phencyclidine Scrn (Not Detect) Ur Amphetamines Screen (Not Detect) U Benzodiazepines Scrn (Not Detect) Urine Cocaine Screen (Not Detect) U Marijuana (THC) Screen (Not Detect) Blood Type Antibody Screen Crossmatch 01/12/25 01/12/25 01/12/25 Range/Units 09:47 10:23 10:31 WBC (4.8-10.8) X10*3/uL RBC (4.20-5.50) X10*6/uL Hgb (12.0-16.0) g/dl Hct (37.0-47.0) % MCV (80.0-98.0) fL MCH (27.0-33.0) pg MCHC (31.0-35.0) g/dl RDW (11.0-16.0) % Plt Count (160-400) X10*3/uL MPV (9.4-12.3) fL Immature Gran % (Auto) Neut % (Auto) Lymph % (Auto) [place] % (Auto) Eos % (Auto) Baso % (Auto) Lymph # (Auto) [place] # (Auto) Eos # (Auto) Baso # (Auto) Abs Immat Gran (auto) Absolute Neuts (auto) Absolute Nucleated RBC (0.0-0.012) X10*3/uL Nucleated RBC % (auto) (0.0-0.2) /100WBC Neutrophils % (Manual) (45-73) % Band Neutrophils % (3-5) % Lymphocytes % (Manual) (20-40) % Monocytes % (Manual) (2-11) % Eosinophils % (Manual) (0-4) % Metamyelocytes % % Myelocytes % % Promyelocytes % % Abs Neuts (Manual) (2.0-8.3) X10*3/uL Lymphocytes # (Manual) (1.2-4.9) X10*3/uL Monocytes # (Manual) (0.1-1.2) X10*3/uL Eosinophils # (Manual) (0.0-0.4) X10*3/uL Metamyelocytes # X10*3/uL Myelocytes # X10*/uL Promyelocytes # X10*3/uL Toxic Vacuolation Dohle Bodies Platelet Estimate (NORMAL) Plt Morphology Comment RBC Morphology Ovalocytes /OIF Acanthocytes (Spur) /OIF Schistocytes /OIF PT (10.9-12.4) SEC INR (0.9-1.1) O2 Saturation 100.0 % ABG pH at Pt Temp 7.06 L* (7.35-7.45) ABG pCO2 at Pt Temp 35 (32-45) mmHg ABG pO2 at Pt Temp 542 H (83-108) mmHg ABG HCO3 10 L (22-26) mmol/L ABG Base Excess (Actual) -18.7 mmol/L Sodium (135-145) mmol/L Potassium (3.3-5.1) mmol/L Chloride (96-108) mmol/L Carbon Dioxide (22-29) mmol/L Anion Gap (12-20) BUN (9-16) mg/dL Creatinine (0.5-1.4) mg/dL Estim Creat Clear Calc Estimated GFR POC Glucose > 600 H* (60-115) mg/dL Random Glucose (60-115) mg/dL Lactic Acid (0.5-2.0) mmol/L Calcium (8.4-10.2) mg/dL Magnesium (1.6-2.6) mg/dL Total Bilirubin (0.0-1.0) mg/dL AST (5-31) U/L ALT (0-31) U/L Alkaline Phosphatase (39-117) U/L Total Creatine Kinase (26-140) U/L Troponin I High Sens (<3.5-17.0) ng/L B-Natriuretic Peptide (<100) pg/mL Total Protein (6.5-8.0) g/dL Albumin (3.5-5.0) g/dL Lipase (8-78) U/L Urine Color Yellow Urine Appearance Clear Urine pH 5.5 (5.0-9.0) Ur Specific [place] 1.020 (1.005-1.025) Urine Protein 30 (1+) H (Neg-Trace) mg/dL Urine Glucose (UA) >=1000 H (Negative) mg/dL Urine Ketones Negative (Negative) mg/dL Urine Blood Small (1+) H (Negative) Urine Nitrite Negative (Negative) Ur Leukocyte Esterase Small (1+) H (Negative) Urine RBC 6-10 H (0-2) /HPF Urine WBC 6-10 H (0-5) /HPF Ur Squamous Epith Cells 6-10 (0-2) /HPF Urine Bacteria None Seen (None Seen) Epithelial Casts Present Hyaline Casts 11-20 (0-2) /LPF Urine Opiates Screen POSITIVE H (Not Detect) Ur Buprenorphine Scrn Not Detected (Not Detect) ng/mL Ur Oxycodone Screen Not Detected (Not Detect) ng/mL Urine Methadone Screen Positive H (Not Detect) ng/mL Urine Fentanyl Screen POSITIVE H (Not Detect) Ur Barbiturates Screen Not Detected (Not Detect) Ur Phencyclidine Scrn Not Detected (Not Detect) Ur Amphetamines Screen Not Detected (Not Detect) U Benzodiazepines Scrn Not Detected (Not Detect) Urine Cocaine Screen POSITIVE H (Not Detect) U Marijuana (THC) Screen Not Detected (Not Detect) Blood Type Antibody Screen Crossmatch 01/12/25 01/12/25 01/12/25 Range/Units 10:35 10:36 11:34 WBC 35.8 H* (4.8-10.8) X10*3/uL RBC 2.72 L (4.20-5.50) X10*6/uL Hgb 7.1 L (12.0-16.0) g/dl Hct 23.0 L (37.0-47.0) % MCV 84.6 (80.0-98.0) fL MCH 26.1 L (27.0-33.0) pg MCHC 30.9 L (31.0-35.0) g/dl RDW 20.6 H (11.0-16.0) % Plt Count 260 (160-400) X10*3/uL MPV 10.6 (9.4-12.3) fL Immature Gran % (Auto) Cancelled Neut % (Auto) Cancelled Lymph % (Auto) Cancelled [place] % (Auto) Cancelled Eos % (Auto) Cancelled Baso % (Auto) Cancelled Lymph # (Auto) Cancelled [place] # (Auto) Cancelled Eos # (Auto) Cancelled Baso # (Auto) Cancelled Abs Immat Gran (auto) Cancelled Absolute Neuts (auto) Cancelled Absolute Nucleated RBC 0.090 H (0.0-0.012) X10*3/uL Nucleated RBC % (auto) 0.3 H (0.0-0.2) /100WBC Neutrophils % (Manual) 80 H (45-73) % Band Neutrophils % 11 H (3-5) % Lymphocytes % (Manual) 3 L (20-40) % Monocytes % (Manual) 2 (2-11) % Eosinophils % (Manual) 1 (0-4) % Metamyelocytes % 1 % Myelocytes % 1 % Promyelocytes % 1 % Abs Neuts (Manual) 32.6 H (2.0-8.3) X10*3/uL Lymphocytes # (Manual) 1.1 L (1.2-4.9) X10*3/uL Monocytes # (Manual) 0.7 (0.1-1.2) X10*3/uL Eosinophils # (Manual) 0.4 (0.0-0.4) X10*3/uL Metamyelocytes # 0.4 X10*3/uL Myelocytes # 0.4 X10*/uL Promyelocytes # 0.4 X10*3/uL Toxic Vacuolation PRESENT Dohle Bodies PRESENT Platelet Estimate NORMAL (NORMAL) Plt Morphology Comment NORMAL RBC Morphology NOTED Ovalocytes 1+ (5-14) /OIF Acanthocytes (Spur) 3+ (>5) /OIF Schistocytes 1+ (0-2) /OIF PT 21.4 H (10.9-12.4) SEC INR 1.8 H (0.9-1.1) O2 Saturation % ABG pH at Pt Temp (7.35-7.45) ABG pCO2 at Pt Temp (32-45) mmHg ABG pO2 at Pt Temp (83-108) mmHg ABG HCO3 (22-26) mmol/L ABG Base Excess (Actual) mmol/L Sodium 120 L* (135-145) mmol/L Potassium 5.4 H D (3.3-5.1) mmol/L Chloride 98 (96-108) mmol/L Carbon Dioxide 12 L (22-29) mmol/L Anion Gap 15 (12-20) BUN 152 H (9-16) mg/dL Creatinine 3.38 H (0.5-1.4) mg/dL Estim Creat Clear Calc 19.0 Estimated GFR 15 POC Glucose (60-115) mg/dL Random Glucose 805 H* (60-115) mg/dL Lactic Acid (0.5-2.0) mmol/L Calcium 7.1 L D (8.4-10.2) mg/dL Magnesium 2.1 (1.6-2.6) mg/dL Total Bilirubin 0.3 (0.0-1.0) mg/dL AST 66 H (5-31) U/L ALT < 6 (0-31) U/L Alkaline Phosphatase 146 H (39-117) U/L Total Creatine Kinase 141 H (26-140) U/L Troponin I High Sens (<3.5-17.0) ng/L B-Natriuretic Peptide (<100) pg/mL Total Protein 5.6 L (6.5-8.0) g/dL Albumin 1.5 L (3.5-5.0) g/dL Lipase 5 L (8-78) U/L Urine Color Urine Appearance Urine pH (5.0-9.0) Ur Specific [place] (1.005-1.025) Urine Protein (Neg-Trace) mg/dL Urine Glucose (UA) (Negative) mg/dL Urine Ketones (Negative) mg/dL Urine Blood (Negative) Urine Nitrite (Negative) Ur Leukocyte Esterase (Negative) Urine RBC (0-2) /HPF Urine WBC (0-5) /HPF Ur Squamous Epith Cells (0-2) /HPF Urine Bacteria (None Seen) Epithelial Casts Hyaline Casts (0-2) /LPF Urine Opiates Screen (Not Detect) Ur Buprenorphine Scrn (Not Detect) ng/mL Ur Oxycodone Screen (Not Detect) ng/mL Urine Methadone Screen (Not Detect) ng/mL Urine Fentanyl Screen (Not Detect) Ur Barbiturates Screen (Not Detect) Ur Phencyclidine Scrn (Not Detect) Ur Amphetamines Screen (Not Detect) U Benzodiazepines Scrn (Not Detect) Urine Cocaine Screen (Not Detect) U Marijuana (THC) Screen (Not Detect) Blood Type O Positive Antibody Screen NEGATIVE Crossmatch See Detail Independent Interpretation I performed an independent interpretation of an: EKG, Plain X-Ray and CT Scan Radiology Impression Discussion of test interpretation with radiology: I have reviewed the radiologist's reading. External Record Review External record reviewed: Inpatient record, Office record, Outpatient record, Prior outpatient labs, Prior outpatient radiology, Primary care record and Outside ED record Prescription Management I considered prescription management with: Other Chronic Conditions Patient?s care impacted by: Other Critical Care Time Critical Care Time Critical Care Time: Yes Total Critical Care Time: 60 Attestation: I attest to this time spent taking care of the patient, obtaining history, physical, reviewing labs, imaging, treatment of patients condition +/- specialist/hospitalist consult +/- procedure Discharge Plan Discharge Clinical Impression: Severe sepsis, Necrotizing fasciitis, Open wound of right wrist, Bandemia Patient Disposition: [facility] Transfer Details: [facility] M3 Dr. Corona Prescriptions: No Action methadone [Methadose] 10 mg/mL Concentrate 165 mg PO DAILY methadone [Methadose] 10 mg/mL Concentrate 65 mg PO DAILY Discharge Date/Time: 01/12/25 15:29 Print Language: Prydeinig
[2025-01-12] MEDS: Naloxone HCl 0.4 MG/ML VIAL IVPUSH (09:00)
[2025-01-12] MEDS: ondansetron HCL 4 MG/2 ML VIAL IVPUSH (09:04)
[2025-01-12] MEDS: Dextrose 50 % 25 GM/50 ML SYRINGE IVPUSH ×4 (09:07→09:26)
[2025-01-12] MEDS: Ketamine HCl/NS 50 MG/5 ML SYRINGE 90 MG IVPUSH (09:09)
[2025-01-12] MEDS: Rocuronium Bromide 50 MG/5 ML VIAL 60 MG IVPUSH (09:10)
[2025-01-12] MEDS: Dextrose 10 % 1,000 ML 75 ML IVCONT (09:11)
[2025-01-12] MEDS: LORazepam 2 MG/ML VIAL 1 MG IVPUSH (09:21)
[2025-01-12] MEDS: Morphine Sulfate 4 MG/ML CARTRIDGE IVPUSH (09:21)
[2025-01-12 09:26] VITALS: BMI 21.6
[2025-01-12 09:27] LABS: Lactic Acid 1.9 mmol/L (0.5-2.0)
[2025-01-12 09:28] VITALS: BP 145/67; PULSE 99; TEMP 25
[2025-01-12 09:33] LABS: B Type Natriuretic Peptide 329 pg/mL (<100)
[2025-01-12 09:35] LABS: Troponin-I High Sensitivity < 2.7 ng/L (<3.5-17.0)
[2025-01-12] MEDS: fentaNYL citrate/NS 1,000 MCG/100 ML PLAST..BAG 2.5 MCG IVCONT (09:50)
[2025-01-12] MEDS: Midazolam HCl/NS 50 MG/50 ML PLAST..BAG IVCONT (09:50)
[2025-01-12] MEDS: vancomycin HCL 1,500 MG in 0.9 % Sodium Chloride 500 ML 333.33 MG IV (10:06)
[2025-01-12 10:09] LABS: Glucose, Whole Blood 35 mg/dL (60-115)
[2025-01-12 10:09] LABS: Glucose, Whole Blood 41 mg/dL (60-115)
[2025-01-12 10:09] LABS: Glucose, Whole Blood 68 mg/dL (60-115)
[2025-01-12 10:09] LABS: Glucose, Whole Blood 46 mg/dL (60-115)
[2025-01-12 10:09] LABS: Glucose, Whole Blood 30 mg/dL (60-115)
[2025-01-12 10:09] LABS: Glucose, Whole Blood 39 mg/dL (60-115)
[2025-01-12 10:09] LABS: Glucose, Whole Blood 59 mg/dL (60-115)
[2025-01-12 10:09] LABS: Glucose, Whole Blood 19 mg/dL (60-115)
[2025-01-12 10:09] LABS: Glucose, Whole Blood > 600 mg/dL (60-115)
--- NOTE | 2025-01-12 10:20 | PC.RT ---
Pt intubated in ER w/ 7.0 ETT 20cm@lip. ETT confirmed w/ colormetric, quantitative ETCO2, bilateral chest rise w/ breath sounds. ETT secured and pt placed on mechanical ventilation as documented. Pt tolerating well. Scant amount of charcoal secretions suctioned endotracheally. Post xray, ETT advnaced 3cm.
[2025-01-12 10:31] LABS: Appearance Urine Clear; Color Urine Yellow; Glucose Urine UA >=1000 mg/dL (Negative); Leukocyte Esterase Urine Small (1+) (Negative); Nitrite Urine Negative (Negative); PH 5.5 (5.0-9.0); UMIC TRIGGER UACC YES; Urine Blood Small (1+) (Negative); Urine Ketones Negative (Negative); Urine Protein 30 (1+) mg/dL (Neg-Trace)
[2025-01-12 10:33] VITALS: O2SAT 100
[2025-01-12 10:35] LABS: ABG Base Excess -18.7 mmol/L; ABG HCO3 10 mmol/L (22-26); ABG pCO2 35 mmHg (32-45); ABG pH 7.06 (7.35-7.45); ABG pO2 542 mmHg (83-108)
[2025-01-12 10:48] LABS: Bacteria Urine None Seen (None Seen); Epith (RTE) Cast Present; UACC Culture Trigger YES
[2025-01-12 10:55] LABS: INTERNATIONAL NORM RATIO 1.8 (0.9-1.1); Prothrombin Time 21.4 SEC (10.9-12.4)
[2025-01-12 10:55] LABS: Hemoglobin 7.1 g/dl (12.0-16.0); Mean Corpuscular HGB Conc 30.9 g/dl (31.0-35.0); Mean Corpuscular Hemoglobin 26.1 pg (27.0-33.0); Mean Corpuscular Volume 84.6 fL (80.0-98.0); Mean Platelet Volume 10.6 fL (9.4-12.3); NRBC Pct Auto 0.3 /100WBC (0.0-0.2); Platelet Count 260 X10*3/uL (160-400); Red Blood Count 2.72 X10*6/uL (4.20-5.50); Red Cell Distribution Width 20.6 % (11.0-16.0)
[2025-01-12 10:57] LABS: ABG Refer to POC result
[2025-01-12 10:57] LABS: WBC ABN SCTR FOR CBC 1
[2025-01-12 10:59] LABS: White Blood Count 35.8 X10*3/uL (4.8-10.8)
[2025-01-12 11:26] LABS: Neutrophils Percent Manual 80 % (45-73)
[2025-01-12 11:29] LABS: Band Neutrophils Percent 11 % (3-5); Eosinophils Absolute Manual 0.4 X10*3/uL (0.0-0.4); Eosinophils Percent Manual 1 % (0-4); Lymphocytes Absolute Manual 1.1 X10*3/uL (1.2-4.9); Lymphocytes Percent Manual 3 % (20-40); Metamyelocytes Absolute 0.4 X10*3/uL; Metamyelocytes Percent 1 %; Monocytes Absolute Manual 0.7 X10*3/uL (0.1-1.2); Monocytes Percent Manual 2 % (2-11); Myelocytes Absolute 0.4 X10*/uL; Myelocytes Percent 1 %; Neutrophils Absolute Manual 32.6 X10*3/uL (2.0-8.3); Promyelocytes Absolute 0.4 X10*3/uL; Promyelocytes Percent 1 %
[2025-01-12 11:30] LABS: Acanthocytes 3+ (>5) /OIF; Dohle Bodies PRESENT; Ovalocytes 1+ (5-14) /OIF; RBC Morphology NOTED; Schistocytes 1+ (0-2) /OIF
[2025-01-12 11:31] LABS: Platelet Estimate NORMAL (NORMAL); Platelet Morphology Comment NORMAL; Toxic Vacuolation PRESENT
[2025-01-12 11:50] LABS: Amphetamine Screen Urine Not Detected (Not Detect); Barbiturates, Urine Not Detected (Not Detect); Benzodiazepines Screen Urine Not Detected (Not Detect); Buprenorphine Scr Not Detected (Not Detect); Cannabinoid Screen Urine Not Detected (Not Detect); Cocaine Screen Urine POSITIVE (Not Detect); Fentanyl, urine POSITIVE (Not Detect); Methadone Screen, Urine Positive (Not Detect); Opiate Screen Urine POSITIVE (Not Detect); Oxycodone Screen Urine Not Detected (Not Detect); Phencyclidine Screen Urine Not Detected (Not Detect)
[2025-01-12] MEDS: Glucose Gel 15 GM GEL..GRAM. PO (11:55)
--- NOTE | 2025-01-12 11:55 | PC.RT ---
Life flight taking over pt care. RT assisted in transfer to life flight vent. Pt tolerating vent change well.
[2025-01-12 12:01] VITALS: BP 139/50; PULSE 108; RESP 20; TEMP 34.5
[2025-01-12 12:08] LABS: Alanine Aminotransferase < 6 U/L (0-31); Albumin Level 1.5 g/dL (3.5-5.0); Alkaline Phosphatase 146 U/L (39-117); Anion Gap 15 (12-20); Aspartate Amino Transferase 66 U/L (5-31); Bilirubin Total 0.3 mg/dL (0.0-1.0); Blood Urea Nitrogen 152 mg/dL (9-16); Calcium 7.1 mg/dL (8.4-10.2); Carbon Dioxide 12 mmol/L (22-29); Chloride 98 mmol/L (96-108); Estimated Glomerular Filt Rate 15; Glucose Random 805 mg/dL (60-115); Lipase 5 U/L (8-78); Magnesium 2.1 mg/dL (1.6-2.6); Potassium 5.4 mmol/L (3.3-5.1); Sodium 120 mmol/L (135-145); Total Protein 5.6 g/dL (6.5-8.0)
--- NOTE | 2025-01-12 12:08 | PC.NURSE ---
delayed entry Patient arrived to ED via ems from home, patient noted to have extensive wound to right wrist/arm and right thigh/leg. patient is alert and oriented, although somnolent answers questions appropriately after verbal stimuli. patient VSS stable at the time of arrival. patient pupils equal and reactive to light. IV access obtained in patient right shoulder #22, initial labs and cultures sent. patient difficult blood draw/iv insertion. patient medicated per MAR, given IV narcan due to how somnolent and hypotensive patient became, patient then had episode of vomiting, patient vomited large amount of coffee ground emesis, patient then was unable to protect airway with amount of vomit produced. ED providers at bedside, patient prepped for intubation at this time. 90mg ketamine at 908 and 60mg mckenna 908, patient intubated by ED provider, patient intubated by 910 with 7.0 ETT 20 lip positive color metric change. patient became hypoglycemic at various points in resuscitation effort, see MAR for times given for d50, see labs for poc results and times. 914 patient uncross match blood started with other RN witness, started at 100 ml/hr 916 OG was placed by ED provider patient expressed 200cc coffee ground emesis thru OG. 928 patient prepped for central line placement, 16 fr placed 1000 patient had temp sensing yost placed , UA sent to lab. patient had aprox 300cc urine output, with a core temp 94.1. patient stabilized, was escorted by this RN, RT and lead Tech to CT scan. patient tolerated CT scan well, brought back to ED and [facility] on unit to transfer patient. any delay in med admins due to patient being off unit at CT scan, delay n blood draws due to patient being difficult draw. please see paper chart/MAR/physcian notes for additional information and times, patient appeared comfortable during proccess.
[2025-01-12] MEDS: iohexoL 350 MG/ML 100 ML INFUS..BTL 85 ML IV (12:29)
--- NOTE | 2025-01-12 12:44 | PC.NURSE ---
[facility] M3 called for report.
--- NOTE | 2025-01-13 03:04 | PC.NURSE ---
call from lab to report patient positive blood cultures. patient was transferred to [facility] SICU this AM. this RN called SICU and spoke to RN and reported blood culture results to them.
== END 2025-01-12 15:29 | disposition short-term general hospital (02) ==
PROVIDERS: Physician Assistant; Emergency Provider Emergency Medicine
DX: S71.101A Unspecified open wound, right thigh, initial encounter (principal); S61.501A Unspecified open wound of right wrist, initial encounter; B95.0 Streptococcus, group A, as the cause of diseases classified elsewhere; B95.62 Methicillin resistant Staphylococcus aureus infection as the cause of diseases classified elsewhere; X58.XXXA Exposure to other specified factors, initial encounter; R65.20 Severe sepsis without septic shock; M72.6 Necrotizing fasciitis; D72.825 Bandemia; E16.0 Drug-induced hypoglycemia without coma; I95.2 Hypotension due to drugs; R00.0 Tachycardia, unspecified; R11.10 Vomiting, unspecified; R40.0 Somnolence; F19.10 Other psychoactive substance abuse, uncomplicated; D64.9 Anemia, unspecified; B19.20 Unspecified viral hepatitis C without hepatic coma; Y93.9 Activity, unspecified; Y92.9 Unspecified place or not applicable; Y99.9 Unspecified external cause status
CPT/HCPCS: 31500; 36415; 36430; 36556; 70450; 71045; 71260; 73201; 73701; 74177; 80053; 80307; 81001; 82550; 82803; 82947; 83605; 83690; 83735; 83880; 84484; 85007; 85027; 85610; 86850; 86900; 86901; 86920; 87040; 87077; 87086; 87147; 87186; 87205; 94002; 96365; 96375; 99283; 99285; J2060; J2251; J2270; J2310; J2405; J2543; J3010; J3371; P9016; Q9967

== ENCOUNTER → 2025-01-12 09:15 | Outpatient (BNV) | payer MEDICAID, SELFPAY | PROVIDERS: Emergency Provider Emergency Medicine; Visit Provider Radiology Diagnostic Radiology | DX: R91.8 Other nonspecific abnormal finding of lung field (principal); S52.351A Displaced comminuted fracture of shaft of radius, right arm, initial encounter for closed fracture; R41.82 Altered mental status, unspecified; Z93.4 Other artificial openings of gastrointestinal tract status; S71.101A Unspecified open wound, right thigh, initial encounter | CPT/HCPCS: 70450; 71045; 71260; 73201; 73701; 74177 ==

== ENCOUNTER 2025-03-12 10:19 | Outpatient (REF) | payer MEDICAID, SELFPAY ==
--- OUTSIDE RECORDS SUMMARY | 2025-03-12 10:54 | XMS_ITS | Encounter Summary ---
Author Organization [employer] Address [address] [place] [address] Care Team Providers Care Seaming Inspector Name Role Phone Niharika Whitney MD Primary Care Provider [phone] Encounter Details Date Type Department Care Team (Late st Contact Info) Description 11/20/2022 Telephone [facility] [address] [place], [place] [phone] Niharika Whitney MD [address], [place] [phone] Social History Tobacco Use Types Packs/Day Years Used Date Smoking Tobacco: Every Day Cigarettes Comments Unknown Sex and Gender Information Value Date Recorded Sex Assigned at Female 08/24/2022 10:19 AM EDT Legal Sex Female 10:19 AM EDT Gender Identity Choose not to disclose 10:19 AM EDT Sexual Orientation Choose not to disclose 2021 10:19 AM EDT COVID-19 Exposure Response Date Recorded In the last 10 days, have yo u been in contact with someone who was confirmed or suspected to have Coronavirus/COVID-19? No / Unsure 11/16/2022 10:56 AM EST documented as of this encounter Plan of Treatment Not on file documented as of this encounter Visit Diagnoses Not on filedocumented in this encounter Care Teams Seaming Inspector Relationship Specialty Start Date End Date Niharika Whitney MD [address], [place] [phone] PCP - General Family Medicine 02/19/21 documented as of this encounter
--- OUTSIDE RECORDS SUMMARY | 2025-03-12 10:54 | XMS_ITS | Clinical Summary ---
Author Organization [facility] Address [address] [place] [address] Care Team Providers Care Cup Trimming Machine Operator Name Role Phone Pcp, No Primary Care Provider Unavailabl e Allergies No known active allergies Medications acetaminophen (TYLENOL) 325 MG tabletIndication s:Osteomyelitis (HCC) Take 3 tablets (975 mg total) by mouth every 8 (eight) hours around the clock. 270 tablet 4 Active cholecalciferol (CHOLECALCIFEROL ) 25 MCG (1000 UT) tabletIndication s:Vitamin D deficiency Take 1 tablet (1,000 Units total) by mouth daily. 30 tablet 4 Active ferrous sulfate 325 (65 FE) MG EC tabletIndication s:Anemia Take 1 tablet (325 mg total) by mouth every other day. Take 2 hours before or 4 hours after acid reducers. 15 tablet 3 4 Active ascorbic acid (VITAMIN C) 500 MG tabletIndication s:Anemia Take 1 tablet (500 mg total) by mouth every other day. Take with your iron supplement 15 tablet 4 Active methocarbamol (ROBAXIN) 750 MG tabletIndication s:Osteomyelitis (HCC) Take 1 tablet (750 mg total) by mouth 4 times daily (every 6 hours) as needed for muscle spasms (muscle cramps). 56 tablet 4 Active naloxone (NARCAN) 4 mg/0.1 mL Liquid nasal spray deviceIndication s:IV drug abuse (HCC) [place] contents (4mg) into one nostril once. May repeat every 2 to 3 minutes in alternating nostrils. Call 911 immediately after use. 2 each 1 4 Active Nutritional Supplements (Ensure Enlive) LiquidIndication s:IV drug abuse (HCC) Take 1 Bottle by mouth 3 (three) times a day. 237 mL 11 4 Active multivitamin Tab tabletIndication s:Moderate protein-calorie malnutrition Take 1 tablet by mouth daily. 30 tablet 3 4 Active folic acid (FOLVITE) 1 MG tabletIndication s:Moderate protein-calorie malnutrition Take 1 tablet (1 mg total) by mouth daily. 30 tablet 3 4 Active thiamine (VITAMIN B-1) 100 mg tabletIndication s:Moderate protein-calorie malnutrition Take 1 tablet (100 mg total) by mouth daily. 30 tablet 3 4 Active oxyCODONE (ROXICODONE) 15 MG immediate release tabletIndication s:Osteomyelitis (HCC) Take 1 tablet (15 mg total) by mouth 4 times daily (every 6 hours) as needed for severe pain. Max Daily Amount: 60 mg 10 tablet 4 Active Active Problems Problem Noted Date Diagnosed Date Moderate protein-calorie mal nutrition (HCC) mild (orbital) to moderate (buccal) fat depletion and mild (temporalis, deltoid, quadriceps) to moderate(pectoralis major) muscle depletion 02/21/2024 Osteomyelitis 02/18/2024 Microcytic anemia 02/18/2024 IV drug abuse 02/18/2024 Social History Tobacco Use Types Packs/Day Years Used Date Smoking Tobacco: Every Day Cigarettes Smokeless Tobacco: Never Tobacco Cessation:Ready to Q uit: Not Asked; Counseling Given: Not Answered [facility] Chilltimeities Answer Date Recorded In the past 12 months has [employer], [employer], or water [email or web address] threatened to shut off services in your home? No 02/18/2024 AUDIT-C Answer Date Recorded Q1: How often do you have a drink containing alcohol? Never 02/18/2024 Q2: How many drinks containi ng alcohol do you have on a typical day when you are drinking? Patient does not drink Q3: How often do you have si x or more drinks on one occasion? Never 02/18/2024 Overall Financial Resource Strain (CARDIA) Answe r Date Recorded How hard is it for you to pa y for the very basics like food, housing, medical care, and heating? Not very hard 02/18/2024 Hunger Vital Sign Answer Date Recorded Within the past 12 months, y ou worried that your food would run out before you got the money to buy more. Never true 02/18/20 24 Within the past 12 months, t he food you bought just didn't last and you didn't have money to get more. Never true 02/18/2024 PRAPARE - Transportation Answer Date Re corded In the past 12 months, has l ack of transportation kept you from medical appointments or from getting medications? No 01/24 In the past 12 months, has l ack of transportation kept you from meetings, work, or from getting things needed for daily living? No 02/18/2024 Housing Stability Vital Sign Answer Eleno e Recorded In the last 12 months, was t here a time when you were not able to pay the mortgage or rent on time? No 02/18/2024 In the last 12 months, how many places have you lived? 1 02/18/2024 In the last 12 months, was t here a time when you did not have a steady place to sleep or slept in a senior living (including now)? No 02/18/2024 Comments Unknown Sex and Gender Information Value Date Recorded Sex Assigned at Female 02/17/2024 8:53 PM EDT Legal Sex Female 5:22 PM EDT Gender Identity Female 02/17/2024 8:53 PM EDT Sexual Orientation Heterosexual (straight) 02/16 8:53 PM EDT Last Filed Vital Signs Vital Sign Reading Time Taken Comments Blood Pressure 152/66 02/21/2024 3:08 PM EDT Pulse 79 02/21/2024 3:08 PM EDT Temperature 36.6 ??C (97.8 ??F) 02/21/2024 3:08 PM ED T Respiratory Rate 18 02/21/2024 3:08 PM EDT Oxygen Saturation 98% 02/21/2024 3:08 PM EDT Inhaled Oxygen Concentration - - Weight 51.5 kg (113 lb 8.6 oz) 02/18/2024 4:56 A M EDT Height 165.1 cm (5' 5 ) 02/18/2024 4:56 AM EDT Body Mass Index 18.89 02/18/2024 4:56 AM EDT Plan of Treatment Health Maintenance Due Date Last Done Comments DTaP/Tdap/Td Vaccines (1 - Tdap) 1999 Hepatitis B Vaccines (1 of 3 - 19+ 3-dose series) 1999 Pneumococcal Vaccine: Pediatric (0-5 Years) and At-Risk Patients (6 to 49 Years) (1 of 2 - PCV) 1999 Pap Smear (Ages 21-65) 2001 Mammogram 2020 COVID-19 Vaccine (1 - 2023-2 5 season) 2024 Influenza Vaccine 05/25/2025 11/24/2023, 09/07/2018 HIV Screening Completed 02/18/2024 Hepatitis C Virus Screening Completed 01/24, 02/18/2024 HPV Vaccines Aged Out No longer eligi ble based on patient's age to complete this topic Procedures Procedure Name Priority Date/Time Associated Diagnosis Comments HIV 1/2 AG/AB CMIA REFLEX TO CONFIRMATION STAT 02/18/2024 2:54 AM EDT HEPATITIS C ANTIBODY REFLEX HCV RT-PCR, QUANT STAT 02/18/2024 2:54 AM EDT from Last 3 Months or Most Recently Relevant to Health Maintenance Results * (ABNORMAL) Hepatitis C Antibody reflex HCV RT-PCR, Quant (02/18/2024 2:54 AM EDT) Hepatitis C Antibody 11.91(H) 0.00 - 0.79 S/CO ratio 02/18/2024 11:14 AM EDT [facility] Hepatitis C Antibody Interpretation Reactive (A) Nonreactive 02/18/2024 11:14 AM EDT [facility] Blood specimen (specimen) (Plasma/Serum) 02/18/2024 2:54 AM EDT 02/18/2024 3:04 AM EDT Comment:Plasma/Serum~Plasma us Anderson Fragoso MD LAB BLOOD ORDERABLES Final Resu lt [facility] [address] [place] [address], * HIV 1/2 Ag/Ab CMIA Reflex to Confirmation (02/18/2024 2:54 AM EDT) HIV 1/2 Ag/Ab CMIA Nonreactive Nonreactive 02/18/2024 11:14 AM EDT [facility] Comment: Results show no evidence of infection by HIV 1/2. If clinically indicated, repeat CMIA or test by nucleic acid amplification. HIV 1/2 Antigen/Antibody CMIA reflex to confirmation AND HIV-1 RNA viral load recommended in patients who are taking or have recently taken PrEP. Blood specimen (specimen) Serum specimen / Unknown 02/18/2024 2:54 AM EDT 02/18/2024 3:04 AM EDT us Anderson Fragoso MD LAB BLOOD ORDERABLES Final Resu lt Performing Organization Address [facility]/ZIP Co de Phone Number [facility] [address] from Last 3 Months or Most Recently Relevant to Health Maintenance Insurance [facility] Advance Directives * Full Code (Latest Code Status on File) Date Activated Date Inactivated Comments 02/18/2024 2:30 AM Healthcare Agents on File Name Relationship Healthcare Agent Relationshi p Communication Jaiden Mark Adult child 4. Next of Kin ( Spouse, Adult Child, Parent, Adult Sibling, Grandparent) Maegan Mark Adult child 4. Next of Kin ( Spouse, Adult Child, Parent, Adult Sibling, Grandparent) Garcia Mcrae Adult child 4. Next of Kin ( Spouse, Adult Child, Parent, Adult Sibling, Grandparent) Care Teams Cup Trimming Machine Operator Relationship Specialty Start Date End Date Pcp, No PCP - General 02/19/24
--- OUTSIDE RECORDS SUMMARY | 2025-03-12 10:55 | XMS_ITS ---
Author Organization [employer] Address [address] [facility] [address] [place] [address] Care Team Providers Care Videotape Sales Representative Name Role Phone Niharika Whitney MD Primary Care Provider [phone] CHW Complex Status:Outreach In Progress (Enrolling) Start date:01/15/2025 Enrollment reason:ADT Feed Overview ADT- Pt admitted to [facility] [place]12/25. Case Team Name Relationship Phone Mariella Ortiz(Responsible Staff) Continued Care and Services Coordination
--- OUTSIDE RECORDS SUMMARY | 2025-03-12 10:55 | XMS_ITS | Clinical Summary ---
Author Organization [employer] Address [address] [facility] 7t [place] [address] Care Team Providers Care Thoracic Medicine Physician Name Role Phone Niharika Whitney MD Primary Care Provider [phone] Allergies Active Allergy Reactions Criticality Noted Date Comments Sulfamethoxazole-Trimethoprim 2022 Hydrocodone-Acetaminophen 03/17/2023 Medications * This document contains information received from the source organization and may not represent a complete record from that organization. folic acid (Folvite) 1 MG tablet Take 1 tablet by mouth Once per day. Active thiamine (Vitamin B-1) 100 MG tablet Take 1 tablet by mouth 2 times daily. 02/21/20 24 Active methadone (Dolophine) 10 MG/5ML solution Take 36 mL by mouth before breakfast. 02/07/20 25 Active Narcan 4 MG/0.1ML nasal spray use one spray in one nostril. if an additional dose is needed, alternate nostril may repeat every 2 to 3 minutes until patient responds Active gabapentin (Neurontin) 600 MG tablet Take 1 tablet by mouth 3 times daily. Active docusate sodium (Colace) 100 MG capsule Take 100 mg by mouth if needed in the morning and at bedtime for constipation. Active dronabinol (Marinol) 5 MG capsule Take 5 mg by mouth Once per day. Active MAGNESIUM OXIDE 400 PO Take 1 tablet by mouth 2 times daily. Active LORazepam (Ativan) 0.5 MG tablet Take 1 tablet (0.5 mg) by mouth if needed in the morning and at bedtime for anxiety. 30 tablet 03/12/20 25 Active Multiple Vitamin (Daily-Padmini) tablet Take 1 tablet by mouth Once per day. 90 tablet 3 03/12/20 25 Active nicotine polacrilex (Commit) 4 MG lozenge Dissolve 1 lozenge (4 mg) in the mouth every 2 (two) hours if needed for smoking cessation. 100 lozenge 1 03/17/20 025 Discontinued(Me d list cleanup (will not trigger notification to Pharmacy)) ibuprofen 400 MG tablet Take 1 tablet (400 mg) by mouth every 6 (six) hours if needed for moderate pain or fever for up to 30 doses. 30 tablet 03/17/20 025 Discontinued(Me d list cleanup (will not trigger notification to Pharmacy)) gabapentin (Neurontin) 300 MG capsule Take 1 capsule (300 mg) by mouth if needed in the morning and at bedtime (back pain). 60 capsule 03/17/20 025 Discontinued(Me d list cleanup (will not trigger notification to Pharmacy)) Neomycin-Bacit racin-Polymyxi n (Neosporin Original) ointmentIndica tions:Skin ulcer of left lower leg, limited to breakdown of skin (CMS/HCC) Apply 1 each topically Once daily. 30 g 03/17/20 025 Discontinued(Me d list cleanup (will not trigger notification to Pharmacy)) Multiple Vitamin (Daily-Padmini) tablet Take 1 tablet by mouth Once per day. 02/21/20 24 025 Discontinued(Re order (will not trigger notification to Pharmacy)) traZODone (Desyrel) 50 MG tablet Take 50 mg by mouth at bedtime. 02/07/20 25 025 Discontinued(Me d list cleanup (will not trigger notification to Pharmacy)) LORazepam (Ativan) 0.5 MG tablet Take 1 tablet by mouth if needed in the morning and at bedtime for anxiety. 025 Discontinued(Re order (will not trigger notification to Pharmacy)) Active Problems Problem Noted Date Diagnosed Date Necrotizing soft tissue infection 03/11/2025 Opioid dependence, uncomplicated 03/17/2023 Bipolar 2 disorder 03/17/2023 Assessment & Plan (03/23/2023 9:46 AM EDT): Assessment: ?? Patient reports experiencing difficulties concentrating, restlessness, hypomanic episodes, and depression. She denies SI/HI. This is in the context of diagnosis Bipolar II. Patient has a history of substance abuse, history of trauma, is currently homeless, and is not being prescribed medications. Patient is connected to an therapist and would benefit from continued OP therapy service. Per patient's request, she will be referred to psychopharmacology. ?? At this time Saira Nova meets criteria for Visit Diagnoses: Problem List Items Addressed This Visit ? Other ?? Opioid dependence, uncomplicated (CMS/HCC) ?? Bipolar 2 disorder (CMS/HCC) ?? Patient ready to address current needs Yes ?? Strengths include ability to seek help. ?? PLAN: 1. Follow up with [facility]: Not recommended for follow-up 2. Patient goal is to be restart on medication. 3. Behavioral Recommendations a. Patient will continue meeting with OP therapist b. Patient will continue attending Methadone clinic c. Patient will utilize CB, as needed. d. 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 03/17/2023 Chronic hepatitis C 10/13/2016 Chronic type B viral hepatitis 02/13/2016 Obesity (BMI 35.0-39.9 without comorbidity) 01/24 Resolved Problems Problem Noted Date Diagnosed Date Resolved Date Dental caries 03/17/2023 03/17/2023 Encounters Date Type Department Care Team Description 03/12/2025 9:00 AM EDT Office Visit [facility] [address] [place] [phone] Melvina Mccormick MD Necrotizing soft tissue infection (Primary Dx); Anemia, unspecified type; Open wound of right forearm, initial encounter 03/12/2025 Telephone [facility] [address] [place] [phone] Niharika Whitney MD VNA referral 03/12/2025 Travel 03/09/[address] [address] Niharika Whitney MD Chart Prep 03/05/[address] [address] Felisa Adams RN Appointment Request 02/22/2025 Patient Outreach [facility] [address] [place] [address] Niharika Whitney MD 02/14/2025 Patient Outreach [address] [phone] Niharika Whitney MD Care Coordination 02/09/2025 Patient Outreach [address] [address] Niharika Whitney MD 02/08/2025 Patient Outreach [address] [address] Niharika Whitney MD Transition Of Care (Tcm) (F unscheduled) 02/07/2025 Patient Outreach [address] [address] Niharika Whitney MD Transition Of Care (Tcm) (F unscheduled) 02/06/2025 Patient Outreach [address] [address] Niharika Whitney MD [facility] 01/30/2025 Patient Outreach [address] [address] Niharika Whitney MD 01/24/2025 Patient Outreach [address] [address] Niharika Whitney MD Care Coordination (C3 [facility] Mariella Ortiz telephone call) 01/17/2025 Patient Outreach [address] [address] Niharika Whitney MD 01/17/2025 Patient Outreach [address] [address] Niharika Whitney MD Care Coordination 01/15/2025 Patient Outreach [address] [address] Niharika Whitney MD Care Coordination 01/15/2025 Patient Outreach [address] [address] Niharika Whitney MD Care Coordination (C3/ CHW Mariella Ortiz chart review) 01/15/2025 Patient Outreach [address] [address] Niharika Whitney MD Care Coordination (C3- chart review) 01/15/2025 Patient Outreach [facility] [address] [place] [address] Niharika Whitney MD 01/12/2025 Orders Only GENERIC EXTERNAL DATA DEPARTMENT Provider, Generic External Data 01/05/2025 Population Health Risk Score [facility] (C3) Department [address] [address] Provider, Population Health Generic from Last 3 Months Immunizations Immunization Administration Dates Next Due Hep B, adult 11/24/2023 Influenza injectable quadriv alent IIV4 with preservative 09/07/2018 Influenza injectable quadriv alent preservative free 11/24/2023 Influenza, IIV3, injectable 08/21/2024,,09/07/2018 Influenza, seasonal, injecta ble, preservative free 08/21/2024 Pneumococcal Conjugate PCV 20 11/24/2023 Tdap 12/22/2010 Social History Tobacco Use Types Packs/Day Years Used Date Smoking Tobacco: Every Day Cigarettes Smokeless Tobacco: Never Tobacco Cessation:Ready to Q uit: Not Asked; Counseling Given: Not Answered Comments Unknown Sex and Gender Information Value Date Recorded Sex Assigned at Female 08/24/2022 10:19 AM EDT Legal Sex Female 10:19 AM EDT Gender Identity Choose not to disclose 10:19 AM EDT Sexual Orientation Choose not to disclose 2021 10:19 AM EDT Last Filed Vital Signs Vital Sign Reading Time Taken Comments Blood Pressure 110/63 03/12/2025 9:03 AM EDT Pulse 64 03/12/2025 9:03 AM EDT Temperature 36.1 ??C (96.9 ??F) 03/12/2025 9:03 AM ED T Respiratory Rate 17 03/12/2025 9:03 AM EDT Oxygen Saturation 99% 03/12/2025 9:03 AM EDT Inhaled Oxygen Concentration - - Weight 56.7 kg (125 lb) 07/06/2024 11:11 AM EDT Height 162.6 cm (5' 4 ) 07/06/2024 11:11 AM EDT Body Mass Index 21.46 07/06/2024 11:11 AM EDT Plan of Treatment Health Maintenance Due Date Last Done Comments Depression Screening 1980 HIV Screening 1980 Lipid Panel 1980 SDOH Screening 1980 Disability Screening 1980 Alcohol/Substance Use Screening 1992 Family Planning (PISQ) 1995 Hepatitis A Vaccines (1 of 2 - Risk 2-dose series) 1999 Pap Smear 2001 Cervical Cancer Screening 2010 HPV/Cotest 2010 Mammogram 2020 DTaP/Tdap/Td Vaccines (2 - Td or Tdap) 12/22/2020 12/22/2010 Hepatitis B Vaccines (2 of 3 - 19+ 3-dose series) 12/22/2023 11/24/2023 COVID-19 Vaccine (3 - 2023- season) 2024 10/13/2022, 08/12/2021 Tobacco Screening 03/12/2026 03/12/2025 Zoster Vaccines (1 of 2) 2030 RSV Patients and Patients Aged 60 years or older (1 - 1-dose 75+ series) 2055 Pneumococcal Vaccine: Pediatrics (0 to 5 Years) and At-Risk Patients (6 to 49) Years) Completed 11/24/2023 Influenza Vaccine Completed 08/21/2024, , 11/24/2023, Additional history exists HIB Vaccines Aged Out No longer eligi ble based on patient's age to complete this topic HPV Vaccines Aged Out No longer eligi ble based on patient's age to complete this topic IPV Vaccines Aged Out No longer eligi ble based on patient's age to complete this topic Meningococcal B Vaccine Aged Out No l onger eligible based on patient's age to complete this topic Meningococcal Vaccine Aged Out No claire jess eligible based on patient's age to complete this topic RSV under 20 months Aged Out No longe r eligible based on patient's age to complete this topic Rotavirus Vaccines Aged Out No longer eligible based on patient's age to complete this topic Procedures Procedure Name Priority Date/Time Associated Diagnosis Comments LACTIC ACID Routine 01/12/2025 8:45 AM EDT from Last 3 Months Results * Lactic Acid (01/12/2025 8:45 AM EDT) Lactic Acid 1.9 0.5 - 2.0 mmol/L [facility] 01/12/2025 8:45 AM EDT 01/12/2025 8:57 AM EDT us Generic External Data Provider LAB BLOOD ORDERAB LES Final Result [facility] [address] [place] [address] [phone] from Last 3 Months [facility] Care Teams Thoracic Medicine Physician Relationship Specialty Start Date End Date Nihariak Whitney MD [address] [place] [phone] PCP - General Family Medicine 02/19/21
--- OUTSIDE RECORDS SUMMARY | 2025-03-12 10:55 | XMS_ITS | Encounter Summary ---
Author Organization [employer] Address [address] [facility] 7[address] [place] [address] Care Team Providers Care Branch Maker Name Role Phone Niharika Whitney MD Primary Care Provider [phone] Reason for Visit * Reason Onset Date Comments Chart Prep 03/09/2025 Encounter Details Date Type Department Care Team ([facility] st Contact Info) Description 03/09/2025 Telephone [facility] [address] [place], [place] [phone] Niharika Whitney MD [address] [place], [place] [phone] Chart Prep Social History Tobacco Use Types Packs/Day Years Used Date Smoking Tobacco: Every Day Cigarettes Smokeless Tobacco: Never Comments Unknown Sex and Gender Information Value Date Recorded Sex Assigned at Female 08/24/2022 10:19 AM EDT Legal Sex Female 10:19 AM EDT Gender Identity Choose not to disclose 10:19 AM EDT Sexual Orientation Choose not to disclose 2021 10:19 AM EDT documented as of this encounter Miscellaneous Notes * Telephone Encounter - Anna Parisi MA - 03/09/2025 1:16 PM EDT Chart Prep Labs: done Images: not applicable Vaccines due: Covid Due, Tdap Due, Hep A Due, and Hep B Due Referrals: Not Applicable Screenings: PAP, Mammogram, and HIV screening Overdue care gaps: Sbirt, SDOH, PQ9, GAD7, Disability , and Oral Health documented in this encounter Plan of Treatment Not on file documented as of this encounter Visit Diagnoses Not on filedocumented in this encounter Care Teams Branch Maker Relationship Specialty Start Date End Date Niharika Whitney MD [address] [place] [address] PCP - General Family Medicine 02/19/21 documented as of this encounter
--- OUTSIDE RECORDS SUMMARY | 2025-03-12 10:55 | XMS_ITS ---
Author Organization [employer] Address [address] [facility] 7t [place] [address] Care Team Providers Care Supervisor Compounding And Finishing Name Role Phone Niharika Whitney MD Primary Care Provider [phone] CM Complex Status:Outreach In Progress (Enrolling) Start date:01/15/2025 Enrollment reason:ADT Feed Overview ADT- Pt admitted to [facility] [place] [facility] on 01/12/25. Case Team Name Relationship Phone Luis Yee RN(Responsible Staff) Registered Marquita brown [phone] Continued Care and Services Coordination
--- OUTSIDE RECORDS SUMMARY | 2025-03-12 10:55 | XMS_ITS | Encounter Summary ---
Author Organization [employer] Address [address] [facility] [address] [place] [address] Care Team Providers Care Seafood Service Team Member Name Role Phone Niharika Whitney MD Primary Care Provider Reason for Visit * Reason Onset Date Comments VNA referral 03/12/2025 Encounter Details Date Type Department Care Team ([facility] st Contact Info) Description 03/12/2025 Telephone [facility] [address] [place], [place] [phone] Niharika Whitney MD [address] [place], [place] [phone] VNA referral Social History Tobacco Use Types Packs/Day Years [...] encounter Miscellaneous Notes * Telephone Encounter - Hailey Drake RN - 03/12/2025 10:[address] Mccormick's request, generated referral for visiting nursing services for wound care. Placed on PCP desk for signature. documented in this encounter Plan of Treatment Not on file documented as of this encounter Visit Diagnoses Not on filedocumented in this encounter Care Teams Seafood Service Team Member Relationship Specialty Start Date End Date Niharika Whitney MD [address] [place] [phone] PCP - General Family Medicine 02/19/21 documented as of this encounter
--- OUTSIDE RECORDS SUMMARY | 2025-03-12 10:55 | XMS_ITS | Encounter Summary ---
Author Organization [email or web address] Address [address] [facility] 7t [place] [address] Care Team Providers Care Tubing Mill Setter Name Role Phone Niharika Whitney MD Primary Care Provider [phone] Encounter Details Date Type Department Care Team (Late st Contact Info) Description 03/12/2025 9:00 AM EDT Office Visit [facility] MED[facility]INE [address] [place], [place] [phone] Melvina Mccormick MD [address] [place], [place] [phone] Necrotizing soft tissue infection (Primary Dx); Anemia, unspecified type; Open wound of right forearm, initial encounter Social History Tobacco Use Types Packs/Day Years [...] AM EDT documented as of this encounter Last Filed Vital Signs Vital Sign Reading Time Taken Comments Blood Pressure 110/63 03/12/2025 9:03 AM EDT Pulse 64 03/12/2025 9:03 AM EDT Temperature 36.1 ??C (96.9 ??F) 03/12/2025 9:03 AM ED T Respiratory Rate 17 03/12/2025 9:03 AM EDT Oxygen Saturation 99% 03/12/2025 9:03 AM EDT Inhaled Oxygen Concentration - - Weight - - Height - - Body Mass Index - - documented in this encounter Plan of Treatment Scheduled Orders Name Type Priority Associated Diagnoses Orde r Schedule CBC auto differential Lab Routine Anemia, unspecified type Expected: 03/12/2025 (Approximate), Expires: 03/12/2026 TSH with Reflex to Free T4 Lab Routine Anemia, unspecified type Expected: 03/12/2025 (Approximate), Expires: 03/12/2026 Vitamin B12 (Cobalamin) and Folate Panel, Serum Lab Routine Anemia, unspecified type Expected: 03/12/2025 (Approximate), Expires: 03/12/2026 Ferritin Lab Routine Anemia, unspecified type Expected: 03/12/2025 (Approximate), Expires: 03/12/2026 Iron And Total Iron Binding Capacity Lab Routine Anemia, unspecified type Expected: 03/12/2025, Expires: 03/12/2026 Wound Care Procedures Routine Open wound of right forearm, initial encounter Ordered: 03/12/2025 documented as of this encounter Visit Diagnoses Diagnosis Necrotizing soft tissue infection- Primary Anemia, unspecified type Open wound of right forearm, initial encounter documented in this encounter Care Teams Tubing Mill Setter Relationship Specialty Start Date End Date Niharika Whitney MD [address] [place] [id number] PCP - General Family Medicine 02/19/21 documented as of this encounter
--- OUTSIDE RECORDS SUMMARY | 2025-03-12 10:55 | XMS_ITS | Encounter Summary ---
Author Organization [employer] Address [address] [facility] 7t [place] [address] Care Team Providers Care Insurance Premium Auditor Name Role Phone Niharika Whitney MD Primary Care Provider [phone] Encounter Details Date Type Department Care Team (Latest Contact Info) Description 03/12/2025 Travel Social History Tobacco Use Types Packs/Day Years [...] AM EDT documented as of this encounter Plan of Treatment Not on file documented as of this encounter Visit Diagnoses Not on filedocumented in this encounter Care Teams Insurance Premium Auditor Relationship Specialty Start Date End Date Niharika Whitney MD [address] [place] [address] PCP - General Family Medicine 02/19/21 documented as of this encounter
[2025-03-12 11:06] LABS: MANUAL DIFF FLAG NO
[2025-03-12 11:24] LABS: Basophils Percent Auto 0.5 % (0-2); Eosinophils Absolute Auto 0.2 X10*3/uL (0.0-0.4); Eosinophils Percent Auto 3.5 % (0-4); Hematocrit 28.4 % (37.0-47.0); Hemoglobin 9.4 g/dl (12.0-16.0); Imm Gran Abs Auto 0.01 X10*3/uL (0.00-0.03); Imm Gran Pct Auto 0.2 % (0.0-0.4); Lymphocytes Percent Auto 46.3 % (20-40); Mean Corpuscular HGB Conc 33.1 g/dl (31.0-35.0); Mean Corpuscular Hemoglobin 29.9 pg (27.0-33.0); Mean Corpuscular Volume 90.4 fL (80.0-98.0); Mean Platelet Volume 9.7 fL (9.4-12.3); Monocytes Absolute Auto 0.4 X10*3/uL (0.1-1.2); Monocytes Percent Auto 10.2 % (2-11); Neutrophils Absolute Auto 1.7 x10*3/uL (2.0-8.3); Neutrophils Percent Auto 39.3 % (45-73); Platelet Count 228 X10*3/uL (160-400); Red Blood Count 3.14 X10*6/uL (4.20-5.50); White Blood Count 4.2 X10*3/uL (4.8-10.8)
[2025-03-12 11:53] LABS: Iron 79 mcg/dL (30-160); Percent Iron Saturation 37 % (15-50); Total Iron Binding Capacity 211 mcg/dL (228-428); Unsaturated Iron Binding 132 ug/dL
[2025-03-12 12:02] LABS: Ferritin 329 ng/mL (10-250); TSH reflex Free T4 0.68 uIU/mL (0.32-4.0)
[2025-03-12 12:12] LABS: Folate 16.2 ng/mL (> or = 4.0); Vitamin B12 918 pg/mL (200-900)
== END 2025-03-12 10:20 | disposition home or self-care (01) ==
LOC: HO.HHCL 10:19
PROVIDERS: Visit Provider Family Medicine
DX: D64.9 Anemia, unspecified (principal)
CPT/HCPCS: 36415; 82607; 82728; 82746; 83540; 84443; 85025

== ENCOUNTER 2025-07-23 15:44 | Outpatient (REF) | payer MEDICAID, SELFPAY ==
--- OUTSIDE RECORDS SUMMARY | 2025-07-23 14:45 | XMS_ITS | Encounter Summary ---
Author Organization [employer] Address [address] [facility] 7t [place] [address] Care Team Providers Care Career Guidance Counselor Name Role Phone Niharika Whitney MD Primary Care Provider [phone] Reason for Visit * Reason Comments hospital follow up Encounter Details Date Type Department Care Team ([facility] st Contact Info) Description 07/23/2025 2:45 PM EDT Office Visit [facility] MEDICINE [address] [place], [place] [phone] Niharika Whitney MD [address] [place], [place] [phone] Osteomyelitis, unspecified site, unspecified type (CMS/HCC) (Primary Dx); Bipolar 2 disorder (CMS/HCC); Chronic hepatitis C without hepatic coma (CMS/HCC) Social History Tobacco Use Types Packs/Day Years Used Date Smoking Tobacco: Every Day Cigarettes Smokeless Tobacco: Never Depression Answer Date Recorded Patient Health Questionnaire-9 Score 14 07/23/2025 Patient Health Questionnaire-9 Score 14 07/23/2025 Last PHQ-9: Questionnaire Data Not on file 0 07/23/2025 Housing Stability Answer Date Recorded What is your housing situation today? I do not have housing (Staying with others, in a hotel, in a long term, living outside on the street, on a beach, in a car, or in a park 07/23/[address] you li ve. Do you have problems with any of the following? None of the above 07/23/2025 Food Insecurity Answer Date Recorded Within the past 12 months, y ou worried that your food would run out before you got money to buy more: Often true 07/23/2025 Within the past 12 months,th e food you bought just didn't last and you didn't have enough money to get more: Often true Transportation Answer Date Recorded In the past 12 months, has l ack of transportation kept you from medical appts, meetings, work or from getting things needed for daily living? Yes, it has kept me from medical appointments or getting medications. 07/23/2025 Utilities Answer Date Recorded In the past 12 months, has t he electric, gas, oil or water company threatened to shut off services in your home? Yes 07/23/2025 Depression Answer Date Recorded Patient Health Questionnaire-2 Score 4 07/23/2025 Internet Access Answer Date Recorded Internet Access Q1 No 07/23/2025 Internet Access Q2 My internet/Wi-Fi ac cess is not consistent or reliable 07/23/2025 Comments Unknown Sex and Gender Information Value Date Recorded Sex Assigned at Female 08/24/2022 10:19 AM EDT Legal Sex Female 10:19 AM EDT Gender Identity Female 07/22/2025 4:54 PM EDT Sexual Orientation Choose not to disclose 2021 10:19 AM EDT documented as of this encounter Last Filed Vital Signs Vital Sign Reading Time Taken Comments Blood Pressure 90/58 07/23/2025 2:41 PM EDT Pulse 72 07/23/2025 2:41 PM EDT Temperature 35.9 C (96.6 F) 07/23/2025 2:41 PM EDT Respiratory Rate 20 07/23/2025 2:41 PM EDT Oxygen Saturation - - Inhaled Oxygen Concentration - - Weight - - Height - - Body Mass Index - - documented in this encounter Functional Status * Over the past 2 weeks, how often have you been bothered by any of the following problems? Question Answer Date of Assessment Author Patient Health Questionnaire -2 Score 4 07/23/2025 3:39 PM EDT Bernice Servin MA * Little interest or pleasure in doing things Answer Date of Assessment Author More than half the days 07/23/2025 3:39 PM EDT Bernice Bird MA * Feeling down, depressed, or hopeless Answer Date of Assessment Author More than half the days 07/23/2025 3:39 PM EDT Bernice Bird MA * Trouble falling or staying asleep, or sleeping too much Answer Date of Assessment Author Nearly every day 07/23/2025 3:39 PM EDT Bernice Servin MA * Feeling tired or having little energy Answer Date of Assessment Author Nearly every day 07/23/2025 3:39 PM EDT Bernice Servin MA * Poor appetite or overeating Answer Date of Assessment Author Several days 07/23/2025 3:39 PM BIAT Bernice Servin MA * Feeling bad about yourself - or that you are a failure or have let yourself or your family down Answer Date of Assessment Author Several days 07/23/2025 3:39 PM EDT Bernice Servin MA * Trouble concentrating on things, such as reading the newspaper or watching television Answer Date of Assessment Author More than half the days 07/23/2025 3:39 PM EDT Bernice Bird MA * Moving or speaking so slowly that other people could have noticed? Or the opposite - being so fidgety or restless that you have been moving around a lot more than usual. Answer Date of Assessment Author Not at all 07/23/2025 3:39 PM EDT Bernice Servin MA * Thoughts that you would be better off or hurting yourself in some way Answer Date of Assessment Author Not at all 07/23/2025 3:39 PM EDT Bernice Servin MA * Patient Health Questionnaire-9 Score Answer Date of Assessment Author 14 07/23/2025 3:39 PM BIAT Bernice Servin MA * How difficult have these problems made it for you to do your work, take care of things at home, or get along with other people? Answer Date of Assessment Author Very difficult 07/23/2025 3:39 PM EDT Bernice Servin MA documented as of this encounter Plan of Treatment Scheduled Orders Name Type Priority Associated Diagnoses Orde r Schedule CBC auto differential Lab Routine Osteomyelitis, unspecified site, unspecified type (CMS/HCC) Expected: 07/23/2025 (Approximate), Expires: 07/23/2026 Comprehensive Metabolic Panel Lab Routine Osteomyelitis, unspecified site, unspecified type (CMS/HCC) Expected: 07/23/2025 (Approximate), Expires: 07/23/2026 documented as of this encounter Visit Diagnoses Diagnosis Osteomyelitis, unspecified site, unspecified type (CMS/HCC) (HCC)- Primary Bipolar 2 disorder (CMS/HCC) (HCC) Other bipolar disorders Chronic hepatitis C without hepatic coma (HCC) documented in this encounter Additional Health Concerns Assessment Noted Time PHQ-9 Depression Total Score: 14 025 3:39 PM EDT documented as of this encounter Care Teams Career Guidance Counselor Relationship Specialty Start Date End Date Niharika Whitney MD [address] [place] [phone] PCP - General Family Medicine 02/19/21 Vilma FORMAN 03/15/25 documented as of this encounter
[2025-07-23 17:42] LABS: MANUAL DIFF FLAG NO
--- OUTSIDE RECORDS SUMMARY | 2025-07-23 17:47 | XMS_ITS | Encounter Summary ---
Author Organization [employer] Address [address] [facility] 7t [place] [address] Care Team Providers Care Cooker Pie Filling Name Role Phone Niharika Whitney MD Primary Care Provider [phone] Mindi Puga RN Unavailable [phone] Jocelynn Weber Unavailable Reason for Referral * Consultation (Urgent) - Authorized Specialty Diagnoses / Procedures Referred By Contac t Referred To Contact Wound Care Diagnoses Arm osteomyelitis, right (CMS/HCC) (HCC) Niharika Whitney MD [address] [place] [phone] Phone: tel: fax: [facility] [address] [place] [phone] Phone: tel: fax: Referral ID Status Reason Start Date Expiration Date Visits Requested Visits Authorized [id number] Authorized Specialty Services Required 07/09/2025 07/09/2026 10 10 Encounter Details Date Type Department Care Team (Late st Contact Info) Description 07/09/[address] [facility] MEDICINE [address] [place] [address] [phone] Niharika Whitney MD [address] [place], [place] [phone] Arm osteomyelitis, right (CMS/HCC) (Primary Dx) Social History Tobacco Use Types Packs/Day Years [...] of this encounter Plan of Treatment Scheduled Referrals Name Type Priority Associated Diagnoses Orde r Schedule Referral to Wound Clinic Outpatient Referral Urgent Arm osteomyelitis, right (CMS/HCC) Expected: 07/09/2025 (Approximate), Expires: 07/09/2026 documented as of this encounter Visit Diagnoses Diagnosis Arm osteomyelitis, right (CMS/HCC) (HCC)- Primary Unspecified osteomyelitis, site unspecified documented in this encounter Care Teams Cooker Pie Filling Relationship Specialty Start Date End Date Niharika Whitney MD [address] [place] [phone] PCP - General Family Medicine 02/19/21 Mindi Puga RN [address] [place] [phone] Registered Nurse Family Medicine 03/13/25 07/12/25 Jocelynn Weber 03/13/25 07/12/25 Vilma FORMAN 03/15/25 documented as of this encounter
--- OUTSIDE RECORDS SUMMARY | 2025-07-23 17:47 | XMS_ITS | Clinical Summary ---
Author Organization [employer] Address [address] [facility] 7t [place] [address] Care Team Providers Care Bulk Mail Clerk Name Role Phone Niharika Whitney MD Primary Care Provider [phone] Allergies Active Allergy Reactions Criticality Noted Date Comments Sulfamethoxazole-Trimethoprim 2022 Hydrocodone-Acetaminophen 03/17/2023 Sulfadiazine 02/06/2025 Medications * This document contains information received from the source organization and may not represent a complete record from that organization. methadone (Dolophine) 10 MG/5ML solution 51 ml once daily and 21.5 ml at bedtime Active Narcan 4 MG/0.1ML nasal spray use one spray in one nostril. if an additional dose is needed, alternate nostril may repeat every 2 to 3 minutes until patient responds Active LORazepam (Ativan) 0.5 MG tabletIndicati ons:Anxiety Take 1 tablet (0.5 mg) by mouth if needed in the morning and at bedtime for anxiety. 30 tablet 05/30/20 25 Active Nutritional Supplements (Ensure) DRINK 1 BOTTLE BY MOUTH EVERY DAY IN THE MORNING 2844 mL 05/30/20 25 Active magnesium oxide (Mag-Ox) 100 mg split tablet Take 400 mg by mouth. 06/27/20 25 025 Active melatonin 5 MG tablet Take 1 tablet (5 mg) by mouth Once per day. 30 tablet 3 07/23/20 25 Active gabapentin (Neurontin) 400 MG capsule Take 1 capsule (400 mg) by mouth 3 times daily. 90 capsule 07/23/20 25 Active Cadexomer Iodine (Iodoflex) 0.9 % pads Apply 1 Application topically Once per day. 30 each 07/23/20 25 Active thiamine (Vitamin B-1) 100 MG tablet Take 1 tablet (100 mg) by mouth Once per day. 90 tablet 3 07/23/20 25 Active gabapentin (Neurontin) 600 MG tablet Take 1 tablet by mouth 3 times daily. 025 Discontinued(M ed list cleanup (will not trigger notification to Pharmacy)) docusate sodium (Colace) 100 MG capsule Take 100 mg by mouth if needed in the morning and at bedtime for constipation. 025 Discontinued(M ed list cleanup (will not trigger notification to Pharmacy)) dronabinol (Marinol) 5 MG capsule Take 5 mg by mouth Once per day. 025 Discontinued(M ed list cleanup (will not trigger notification to Pharmacy)) Multiple Vitamin (Daily-Padmini) tablet Take 1 tablet by mouth Once per day. 90 tablet 3 03/12/20 25 025 Discontinued(M ed list cleanup (will not trigger notification to Pharmacy)) MAGNESIUM OXIDE 400 PO Take 1 tablet by mouth in the morning and 1 tablet in the evening. Discontinued(T herapy completed) thiamine (Vitamin B-1) 100 MG tablet Take 1 tablet by mouth Once per day. Discontinued(R eorder (will not trigger notification to Pharmacy)) gabapentin (Neurontin) 400 MG capsule Take 1 capsule by mouth 3 times daily. 06/27/20 25 025 Discontinued(R eorder (will not trigger notification to Pharmacy)) mirtazapine (Remeron) 7.5 MG tablet Take 1 tablet by mouth at bedtime. 06/27/20 025 Discontinued(T herapy completed) Active Problems Problem Noted Date Diagnosed Date Underweight 07/23/2025 Open fracture of right forearm 03/12/2025 Assessment & Plan (03/12/2025 6:18 PM EDT): - refer to orthopedist - arrange wound care with visiting nurse Anxiety 03/12/2025 Assessment & Plan (03/12/2025 6:25 PM EDT): - continue lorazepam - patient states she plans to connect with behavioral health service provider in near future S/P AKA (above knee amputation), right ([facility]) 03/12/2025 Assessment & Plan (03/12/2025 6:30 PM EDT): - 01/12/25 for necrotizing soft tissue infection - currently using wheelchair - waiting for prosthesis appt Necrotizing soft tissue infection 03/11/2025 Assessment & Plan (03/12/2025 6:28 PM EDT): - hospitalized for sepsis and right lower extremity NSTI - underwent right AKA on 01/12/25 - s/p IV vancomycin for 6 weeks - seen by surgeon on 02/28/25 - waiting for prosthesis specialist appt Acute renal failure due to tubular necrosis 01/23 Disease due to gram-negative bacillus 02/06/2025 Infection due to Streptococcus pyogenes 02/07/20 Anemia of chronic disease 02/06/2025 Psychoactive substance abuse 02/06/2025 Unsteadiness on feet 02/06/2025 Necrotizing fasciitis ([facility]) 02/06/2025 Acute blood loss anemia 01/14/2025 Bacteremia 01/14/2025 Metabolic acidosis 01/14/2025 Polysubstance use disorder 01/14/2025 Severe sepsis with septic shock ([facility]) 2024 Moderate protein-calorie malnutrition 02/21/2024 IV drug abuse ([facility]) 02/18/2024 Osteomyelitis 02/18/2024 Opioid dependence, uncomplicated ([facility]) 03/17 Assessment & Plan (03/12/2025 6:26 PM EDT): - continue methadone Bipolar 2 disorder ([facility]) 03/17/2023 Assessment & Plan (03/23/2023 9:46 AM EDT): Assessment: Patient reports experiencing difficulties concentrating, restlessness, hypomanic [...] request, she will be referred to psychopharmacology. At this time Saira Nova meets criteria for Visit Diagnoses: Problem List Items Addressed This Visit Other Opioid dependence, uncomplicated (CMS/HCC) Bipolar 2 disorder (CMS/HCC) Patient ready to address current needs Yes Strengths include ability to seek help. PLAN: 1. Follow up with [facility]: Not recommended for follow-up 2. Patient goal is to be restart on medication. 3. Behavioral Recommendations a. Patient will continue meeting with OP therapist b. Patient will continue attending Methadone clinic c. Patient will utilize [facility], as needed. d. Patient will contact a [facility], if needed Tobacco dependence 03/17/2023 Assessment & Plan (03/12/2025 6:25 PM EDT): - continue working on smoking cessation Chronic right-sided low back pain with right-zion ed sciatica 03/17/2023 Chronic hepatitis C (CMS/HCC) 10/13/2016 Chronic type B viral hepatitis (CMS/HCC) 016 Resolved Problems Problem Noted Date Diagnosed Date Resolved Date Dental caries 03/17/2023 03/17/2023 Obesity (BMI 35.0-39.9 without comorbidity) 02/13/2016 03/12/2025 Encounters Date Type Department Care Team Description 07/23/2025 2:45 PM EDT Office Visit [facility] MEDICINE [address] [place] [phone] Niharika Whitney MD Osteomyelitis, unspecified site, unspecified type (CMS/HCC) (Primary Dx); Bipolar 2 disorder (CMS/HCC); Chronic hepatitis C without hepatic coma (CMS/HCC) 07/23/2025 Refill [facility] MED[facility]INE [address] [place] [phone] Niharika Whitney MD 07/23/2025 Travel 07/23/2025 Telephone [facility] MEDICINE [address] [place] [phone] Niharika Whitney MD chart prep 07/20/[address] [address] Niharika Whitney MD Durable Medical Equipment 07/12/2025 Patient Outreach [facility]INE [address] [place] [phone] Niharika Whitney MD Care Coordination (CM/CHW outreach) 07/09/2025 Orders Only [facility] MED[facility]INE [address] [place] [phone] Niharika Whitney MD Arm osteomyelitis, right (CMS/HCC) (Primary Dx) 07/05/2025 Patient Outreach [facility]INE [address] [place] [phone] Niharika Whitney MD 07/05/2025 Telephone [facility]INE [address] [place] [phone] Niharika Whitney MD Referral 06/29/2025 Patient Outreach [facility] [address] [place] [phone] Niharika Whitney MD 06/28/2025 Patient Outreach [facility] [address] [place] [phone] Niharika Whitney MD Transition Of Care (Tcm) (HDF scheduled and SDOH screening unable to complete. ) 06/26/2025 Patient Outreach [facility]INE [address] [place] [phone] Niharika Whitney MD 06/08/2025 Telephone [facility] MED[facility]INE [address] [place] [phone] Niharika Whitney MD Nurse Triage 06/08/2025 Telephone [facility] MED[facility]INE [address] [place] [phone] Niharika Whitney MD Durable Medical Equipment (DME: Ensure oral Liquid) 06/08/2025 Refill [facility] [address] [place] [address] Niharika Whitney MD 05/30/2025 Refill [facility] MED[facility]INE [address] [place] [phone] Niharika Whitney MD 05/30/2025 Refill [facility] [address] [place] [phone] Niharika Whitney MD Anxiety (Primary Dx) 05/30/2025 Refill [facility] [address] [place] [address] Henrietta Juarez, RADHA from Last 3 Months Immunizations Immunization Administration Dates Next Due Hep B, adult 11/24/2023 Influenza injectable quadriv alent IIV4 with preservative 09/07/2018 Influenza injectable quadriv alent preservative free 11/24/2023 Influenza, IIV3, injectable 08/21/2024,,09/07/2018 Influenza, seasonal, injecta ble, preservative free 08/21/2024 PPD Test 02/19/2025,02/10/2025 Pfizer Covid-19 Vaccine 12+ Bivalent 10/13/2022 Pneumococcal Conjugate PCV 20 11/24/2023 Tdap 12/22/2010 Social History Tobacco Use Types Packs/Day Years Used Date Smoking Tobacco: Every Day Cigarettes Smokeless Tobacco: Never Tobacco Cessation:Ready to Q uit: Not Asked; Counseling Given: Not Answered Depression Answer Date Recorded Patient Health Questionnaire-9 Score 14 07/23/2025 Patient Health Questionnaire-9 Score 14 07/23/2025 Last PHQ-9: Questionnaire Data Not on file 0 07/23/2025 Housing Stability Answer Date Recorded What is your housing situation today? I do not have housing (Staying with others, in a hotel, in a custodial, living outside on the street, on a [...] 20 07/23/2025 2:41 PM EDT Oxygen Saturation 99% 03/12/2025 9:03 AM EDT Inhaled Oxygen Concentration - - Weight 56.7 kg (125 lb) 07/06/2024 11:11 AM EDT Height 162.6 cm (5' 4 ) 07/06/2024 11:11 AM EDT Body Mass Index 21.46 07/06/2024 11:11 AM EDT Plan of Treatment Health Maintenance Due Date Last Done Comments Lipid Panel 1980 Disability Screening 1980 Family Planning (PISQ) 1995 HPV Vaccines (1 - 3-dose series) 1995 Hepatitis A Vaccines (1 of 2 - Risk 2-dose series) 1999 Pap Smear 2001 Cervical Cancer Screening 2010 HPV/Cotest 2010 Mammogram 2020 DTaP/Tdap/Td Vaccines (2 - Td or Tdap) 12/22/2020 12/22/2010 Hepatitis B Vaccines (2 of 3 - 19+ 3-dose series) 12/22/2023 11/24/2023 COVID-19 Vaccine (3 - season) 2025 10/13/2022, 08/12/2021 Influenza Vaccine (#1) 2025 , 08/21/2024, 11/24/2023, Additional history exists Depression Monitoring 01/20/2026 07/23/2025, 025 Alcohol/Substance Use Screening 07/23/2026 07/23/2025 SDOH Screening 07/23/2026 07/23/2025 Tobacco Screening 07/23/2026 07/23/2025 Zoster Vaccines (1 of 2) 2030 RSV Patients and Patients Aged 60 years or older (1 - 1-dose 75+ series) 2055 Pneumococcal Vaccine: Pediatrics (0 to 5 Years) and At-Risk Patients (6 to 49) Years Completed 11/24/2023 HIV Screening Completed 02/18/2024 HIB Vaccines Aged Out No longer eligi [...] on patient's age to complete this topic Insurance [employer] C3 Care Teams Bulk Mail Clerk Relationship Specialty Start Date End Date Niharika Whitney MD [address] [place] [phone] PCP - General Family Medicine 02/19/21 Vilma FORMAN 03/15/25
--- OUTSIDE RECORDS SUMMARY | 2025-07-23 17:47 | XMS_ITS | Encounter Summary ---
Author Organization [employer] Address [address] [facility] [address] 7[address] [place] [address] Care Team Providers Care Spot Sprayer Name Role Phone Niharika Whitney MD Primary Care Provider [phone] Encounter Details Date Type Department Care Team (Latest Contact Info) Description 07/23/2025 Travel Social History Tobacco Use Types Packs/Day [...] with others, in a hotel, in a chcf, living outside on the street, on a [...] AM EDT documented as of this encounter Functional Status * Over the [...] PM EDT Bernice Servin MA * Feeling bad about [...] of Assessment Author 14 07/23/2025 3:39 PM EDT Bernice Servin MA * How difficult have [...] Diagnoses Not on filedocumented in this encounter Additional Health Concerns Assessment Noted Time PHQ-9 Depression Total Score: 14 025 3:39 PM EDT documented as of this encounter Care Teams Spot Sprayer Relationship Specialty Start Date End Date Niharika Whitney MD [address] [place] [address] PCP - General Family Medicine 02/19/21 Vilma FORMAN 03/15/25 documented as of this encounter
--- OUTSIDE RECORDS SUMMARY | 2025-07-23 17:47 | XMS_ITS | Encounter Summary ---
Author Organization [email or web address] Address [address] [facility] 7t [place] [address] Care Team Providers Care Stem Teacher Name Role Phone Niharika Whitney MD Primary Care Provider [phone] Mindi Puga RN Unavailable Jocelynn Weber Unavailable Reason for Visit * Reason Onset Date Comments Referral 07/05/2025 Encounter Details Date Type Department Care Team ([facility] st Contact Info) Description 07/05/2025 Telephone [facility] [address] [place], [place] [phone] Niharika Whitney MD [address] [place], [place] [phone] Referral Social History Tobacco Use Types Packs/Day Years [...] encounter Miscellaneous Notes * Telephone Encounter - Felisa Adams RN - 07/05/2025 4:37 PM EDT TC returned to DASIA RN. DASIA RN reports pt. Was discharged from [facility] without wound care referral and is in need of one. Bone is sticking out of the wound, pt declines amputation. Pt. Returned to ED 07/03/25: Procedure: Her dressing was taken down. Wound was cleaned. Xeroform and gauze wasa applied. A short arm fiberglass splint was then applied Richie wrapped.. Impression and Plan Diagnosis Open ulnar fracture Chronic osteomyelitis and wound (R forearm) Advised DASIA RN I would request referral from PCP however may need to wait until HD[facility] appt. To place referral or for referral team to have an OV note to send along with referral. Advised if referral ispossible, pt. Should expect a call from wound care clinic to schedule appt. * Telephone Encounter - Phill Weber - 07/05/2025 2:19 PM EDT Tc from Paula with [facility] requesting a referral for wound care. Please contact Paula at [phone]. documented in this encounter Plan of Treatment Not on file documented as of this encounter Visit Diagnoses Not on filedocumented in this encounter Care Teams Stem Teacher Relationship Specialty Start Date End Date Niharika Whitney MD [address] [place] [phone] PCP - General Family Medicine 02/19/21 Mindi Puga RN [address] [place] [phone] Registered Nurse Family Medicine 03/13/25 07/12/25 Jocelynn Weber 03/13/25 07/12/25 [facility] FORMAN 03/15/25 documented as of this encounter
--- OUTSIDE RECORDS SUMMARY | 2025-07-23 17:47 | XMS_ITS | Encounter Summary ---
Author Organization [employer] Address [address] [facility] 7t [place] [address] Care Team Providers Care Aquaculture Program Director Name Role Phone Niharika Whitney MD Primary Care Provider [phone] Reason for Visit * Reason Onset Date Comments Durable Medical Equipment 07/20/2025 Encounter Details Date Type Department Care Team ([facility] st Contact Info) Description 07/20/2025 Telephone [facility] [address] [place] [phone] Niharika Whitney MD [address] [place] [address] Durable Medical Equipment Social History Tobacco Use Types Packs/Day Years [...] encounter Miscellaneous Notes * Telephone Encounter - Celia Ortiz - 07/20/2025 1:17 PM EDT Tc from pt requesting an new scrip truong DME - [employer] To be send to - [facility] documented in this encounter Plan of Treatment Not on file documented as of this encounter Visit Diagnoses Not on filedocumented in this encounter Care Teams Aquaculture Program Director Relationship Specialty Start Date End Date Niharika Whitney MD [address] [place] [phone] PCP - General Family Medicine 02/19/21 Vilma FORMAN 03/15/25 documented as of this encounter
--- OUTSIDE RECORDS SUMMARY | 2025-07-23 17:47 | XMS_ITS ---
Author Name [facility] Unknown Results Test Name/Text Value Interpretation Date Range Source RESULT View Scanned Report Normal 03/06/2024 [facility] Performed at [facility]. Normal 02/18/[address] [facility] FENTANYL PLUS Normal 02/18/2024 [facility] History of Medication Use Medication Directions Dispensed Refills Start Date End Date Stat us oxyCODONE (ROXICODONE) 15 MG immediate release tablet Take 1 tablet (15 mg total) by mouth 4 times daily (every 6 hours) as needed for severe pain. Max Daily Amount: 60 mg 02/25/2024 active multivitamin Tab tablet Take 1 tablet by mouth daily. 02/21/2024 06/21/2024 active methocarbamol (ROBAXIN) 750 MG tablet Take 1 tablet (750 mg total) by mouth 4 times daily (every 6 hours) as needed for muscle spasms (muscle cramps). 02/21/2024 active naloxone (NARCAN) 4 mg/0.1 mL Liquid nasal spray device [place] contents (4mg) into one nostril once. May repeat every 2 to 3 minutes in alternating nostrils. Call 911 immediately after use. 02/21/2024 active Problems Problem Status Onset Date Problem Type Date of Resoluti on Source Microcytic anemia active 2024-02-18 ProblemAct [facility] Moderate protein-calorie malnutrition active 2024-02-21 ProblemAct [facility] IV drug abuse active 2024-02-18 ProblemAct [facility] T Osteomyelitis active 2024-02-18 ProblemAct [facility] T Encounters Encounter Type Encounter Reason Primary Diagnosis Location Date Ambulatory [email or web address] 04[facility]19/2024 [facility] 04[facility]2024 [email or web address] 04/19/2024 Inpatient Osteomyelitis, unspecified [facility], [facility]24 Care Team Organization Name Specialty Phone Email Start Date End [facility] NO PCP Primary Care 04/19/2024 [facility] 02/19/2024 01/10/2025 [facility] 02/17/2024
--- OUTSIDE RECORDS SUMMARY | 2025-07-23 17:47 | XMS_ITS | Encounter Summary ---
Author Organization [employer] Address [address] [facility] 7t [place] [address] Care Team Providers Care Oyster Grader Name Role Phone Niharika Whitney MD Primary Care Provider [phone] Reason for Visit * Reason Comments Med Change Request Encounter Details Date Type Department Care Team ([facility] st Contact Info) Description 07/23/2025 Refill [facility] [address] [place], [place] [phone] Niharika Whitney MD [address] [place], [place] [phone] Social History Tobacco Use Types Packs/Day Years [...] documented as of this encounter Care Teams Oyster Grader Relationship Specialty Start Date End Date Niharika Whitney MD [address] [place] [address] PCP - General Family Medicine 02/19/21 Vil[facility] FORMAN 03/15/25 documented as of this encounter
--- OUTSIDE RECORDS SUMMARY | 2025-07-23 17:47 | XMS_ITS | Encounter Summary ---
Author Organization [employer] Address [address] [facility] 7t [place] [address] Care Team Providers Care Interventional Radiology Tech Name Role Phone Niharika Whitney MD Primary Care Provider [phone] Mindi Puga RN Unavailable [phone] Jocelynn Weber Unavailable Encounter Details Date Type Department Care Team (Late st Contact Info) Description 11/20/2022 Telephone [facility] [address] [place], [place] [phone] Niharika hWitney MD [address] [place], [place] [phone] Social History Tobacco Use Types Packs/Day Years [...] on filedocumented in this encounter Care Teams Interventional Radiology Tech Relationship Specialty Start Date End Date Niharika Whitney MD [address] [place], [place] [phone] PCP - General Family Medicine 02/19/21 Mindi Puga, RN [address] [place] [phone] Registered Nurse Family Medicine 03/13/25 07/12/25 Jocelynn Weber 03/13/25 07/12/25 Vil[facility] FORMAN 03/15/25 documented as of this encounter
--- OUTSIDE RECORDS SUMMARY | 2025-07-23 17:47 | XMS_ITS | Encounter Summary ---
Author Organization [employer] Address [address] [facility] 7[address] [place] [address] Care Team Providers Care Dev Manager Name Role Phone Niharika Whitney MD Primary Care Provider [phone] Reason for Visit * Reason Onset Date Comments chart prep 07/23/2025 Encounter Details Date Type Department Care Team ([facility] st Contact Info) Description 07/23/2025 Telephone [facility] [address] [place], [place] [phone] Niharika Whitney MD [address] [place], [place] [phone] chart prep Social History Tobacco Use Types Packs/Day Years [...] with others, in a hotel, in a halfway, living outside on the street, on a [...] encounter Miscellaneous Notes * Telephone Encounter - Bernice Servin MA - 07/23/2025 10:03 AM EDT Chart Prep Labs: done Images: not applicable Referrals: appointment pending Vaccines due: Covid, Flu, Hep B, Hep A, HPV, and DTAP Screenings: mammogram and pap smear Overdue care gaps: SBIRT, SDOH, PHQ-9, and TAMY-7 documented in this encounter Plan of Treatment Not on file documented as of this encounter Visit Diagnoses Not on filedocumented in this encounter Additional Health Concerns Assessment Noted Time PHQ-9 Depression Total Score: 14 025 3:39 PM EDT documented as of this encounter Care Teams Dev Manager Relationship Specialty Start Date End Date Niharika Whitney MD [address] [place] [address] PCP - General Family Medicine 02/19/21 Vil[facility] FORMAN 03/15/25 documented as of this encounter
--- OUTSIDE RECORDS SUMMARY | 2025-07-23 17:47 | XMS_ITS | Clinical Summary ---
Author Organization [facility] Address [address] [place] [address] Care Team Providers Care Professional Poker Player Name Role Phone Pcp, No Primary Care [...] nasal spray deviceIndication s:IV drug abuse (HCC) [place] contents (4mg) into one nostril once. May [...] uit: Not Asked; Counseling Given: Not Answered [facility] [employer] Answer Date Recorded In the past 12 months has [employer], or water [employer] threatened to shut off services in your [...] place to sleep or slept in a longterm (including now)? No 02/18/2024 Comments Unknown Sex [...] 79 02/21/2024 3:08 PM EDT Temperature 36.6 C (97.8 F) 02/21/2024 3:08 PM EDT Respiratory Rate 18 02/21/2024 3:08 PM EDT [...] - 19+ 3-dose series) 1999 Pneumococcal Vaccine: Pediat frederick (0-5 Years) and At-Risk Patients (6 to 49 Years) (1 of 2 - PCV) 1999 Pap Smear (Ages 21-65) 2001 Mammogram 2020 Influenza Vaccine 05/25/2025 11/24/2023, 09/07/2018 COVID-19 Vaccine ( season) 2025 HIV Screening Completed 02/18/2024 Hepatitis C Virus Screening Completed 02/18/2024, 0 02/18/2024 HPV Vaccines (No Doses Required) Completed Procedures Procedure Name Priority Date/Time Associated Diagnosis [...] 0.79 S/CO ratio 02/18/2024 11:14 AM EDT [facility] Hepatitis C Antibody Interpretation Reactive (A) Nonreactive 02/18/2024 11:14 AM EDT [facility] Blood specimen (specimen) (Plasma/Serum) 02/18/2024 2:54 AM EDT 02/18/2024 3:04 AM EDT Comment:Plasma/Serum~Plasma us Anderson Fragoso MD LAB BLOOD ORDERABLES Final Resu lt [facility] [address] [place] [address], * HIV 1/2 Ag/Ab CMIA Reflex to Confirmation (02/18/2024 2:54 AM EDT) HIV 1/2 Ag/Ab CMIA Nonreactive Nonreactive 02/18/2024 11:14 AM EDT [facility] Comment: Results show no [...] MD LAB BLOOD ORDERABLES Final Resu lt [facility] [address] from Last 3 Months or Most Recently Relevant to Health Maintenance Insurance [facility] Advance Directives * Full Code (Latest Code Status on File) Date Activated Date Inactivated Comments 02/18/2024 2:30 AM Healthcare Agents on File Name Relationship Healthcare Agent Relationshi p Communication Jaiden Mark Adult child 4. Next of Kin ( Spouse, Adult Child, Parent, Adult Sibling, Grandparent) Maegan Jas Adult child 4. Next of Kin ( Spouse, Adult Child, Parent, Adult Sibling, Grandparent) Garcia Mcrae Adult child 4. Next of Kin ( Spouse, Adult Child, Parent, Adult Sibling, Grandparent) Care Teams Professional Poker Player Relationship Specialty Start Date End Date Pcp, No PCP - General 02/19/24
[2025-07-23 17:50] LABS: Hematocrit 31.3 % (37.0-47.0); Hemoglobin 10.3 g/dl (12.0-16.0); Imm Gran Abs Auto 0.02 X10*3/uL (0.00-0.03); Imm Gran Pct Auto 0.3 % (0.0-0.4); Lymphocytes Absolute Auto 1.9 X10*3/uL (1.2-4.9); Mean Corpuscular HGB Conc 32.9 g/dl (31.0-35.0); Mean Corpuscular Hemoglobin 30.1 pg (27.0-33.0); Mean Corpuscular Volume 91.5 fL (80.0-98.0); NRBC Abs Auto 0.000 X10*3/uL (0.0-0.012); NRBC Pct Auto 0.0 /100WBC (0.0-0.2); Platelet Count 260 X10*3/uL (160-400); Red Blood Count 3.42 X10*6/uL (4.20-5.50); White Blood Count 6.3 X10*3/uL (4.8-10.8)
[2025-07-23 18:05] LABS: Alanine Aminotransferase 58 U/L (0-31); Albumin Level 4.1 g/dL (3.5-5.0); Alkaline Phosphatase 109 U/L (39-117); Anion Gap 13 (12-20); Aspartate Amino Transferase 58 U/L (5-31); Blood Urea Nitrogen 29 mg/dL (9-16); Calcium 9.4 mg/dL (8.4-10.2); Carbon Dioxide 27 mmol/L (22-29); Chloride 105 mmol/L (96-108); Estimated Glomerular Filt Rate 50; Potassium 4.7 mmol/L (3.3-5.1); Sodium 140 mmol/L (135-145); Total Protein 9.2 g/dL (6.5-8.0)
== END 2025-07-23 15:45 | disposition home or self-care (01) ==
LOC: HO.HHCL 15:44
PROVIDERS: PCP General Practice; Visit Provider General Practice
DX: M86.9 Osteomyelitis, unspecified (principal)
CPT/HCPCS: 36415; 80053; 85025